=== PATIENT | female | born 1950 | race Caucasian/White ===

== ENCOUNTER 2021-06-27 09:16 | Outpatient (CLI) | payer MEDICARE, SELFPAY ==
[2021-06-27 09:40] VITALS: PULSE 70; O2SAT 98
[2021-06-27 09:46] VITALS: PULSE 84; O2SAT 94
--- NOTE | 2021-06-27 10:23 | HOMEO2EVAL ---
Evaluation was performed at [facility] Home Oxygen Evaluation RC: Home Oxygen (O2) Evaluation Start: 06/27/21 10:18 Freq: Status: Active Protocol: RPE Activity Type Activity Date Activity User E-Sign Co-Sign Detail Recorded Client Recorded Date Recorded By Document 06/27/21 09:40 SJB [id number] 06/27/21 10:23 SJB Document 06/27/21 09:46 SJB [id number] 06/27/21 10:23 SJB 06/27/21 06/27/21 09:40 09:46 Home O2 Evaluation Test Phase Resting Exercise Oxygen Delivery Room Air Room Air Pulse Oximetry (90-100 %) 98 94 Pulse Rate (60-100 beats/min) 70 84 Activity Tolerance Excellent Rating of Perceived Dyspnea (PD) +1 Mild, Noticeable to the Participant but Not to an Observer Rate of Perceived Exertion (PE) 11 Fairly light Ambulation Distance (feet) 650 Ambulation Distance (meters) 198.11 Home Oxygen Evaluation Comments Will begin on Pt walked room air, approx 650 ft pushing pushing wheelchair. wheelchair on room air. Sp02s remained at 94% and above. Tolerated very well. Educated on PLB. Treatment Charges O2 Evaluation - Outpatient
== END 2021-06-27 09:17 | disposition home or self-care (01) ==
LOC: CHSCARD 09:19
PROVIDERS: PCP Internal Medicine; Visit Provider Internal Medicine
DX: R06.00 Dyspnea, unspecified (principal)
CPT/HCPCS: 94618

== ENCOUNTER 2021-06-28 11:45 | Inpatient (IN) | payer MEDICARE, SELFPAY ==
[2021-06-28] VITALS (14 sets, daily range): BP systolic 128–160; BP diastolic 68–114; PULSE 89–132; RESP 15–80; TEMP 36.2–36.4; O2SAT 95–100; BMI 20.1
--- NOTE | ~2021-06-28 | MR_ITS ---
EXAMINATION: MR brain/brain stem wo con DATE: 06/29/2021 12:55 INDICATION: Recurrent TIA TECHNIQUE: Magnetic resonance imaging (MRI) of the brain and brainstem was performed without intraven ous contrast. Sequences included sagittal and axial T1-weighted SE, axial diffusion-weighted FS SE, a xial T2*-weighted GRE, axial T2-weighted FLAIR Propeller, and axial T2-weighted Propeller. Apparent d iffusion coefficient (ADC) maps were created. COMPARISON: CT dated 06/28/2021. FINDINGS: Mild generalized atrophy. There are scattered moderate periventricular and subcortical whit e matter changes, most likely related to small vessel ischemic disease (microangiopathy). No acute in tracranial infarction, hemorrhage, mass or mass effect. Paranasal sinuses are unremarkable. Structure s of the posterior fossa including 7/8th cranial nerve complexes are normal. There is a small chronic right lacunar infarction of the caudate nucleus. Sagittal images demonstrate a normal corpus callosum and craniovertebral junction. IMPRESSION: 1. No acute intracranial abnormality. 2: Chronic age-related findings. Reviewed, dictated and finalized at location A. AGE STOKER
--- NOTE | ~2021-06-28 | XR_ITS ---
EXAMINATION: XR chest 2V DATE: 06/28/2021 12:34 INDICATION: Atrial fibrillation TECHNIQUE: Frontal and lateral views of the chest are obtained COMPARISON: 03/15/2019 FINDINGS: A mild diffuse interstitial pattern is present. There is no pleural effusion or pneumothora x. Cardiomegaly is noted. An electronic device projects over the lower left chest wall. There is mode rate thoracic spondylosis. Surgical clips in the right upper quadrant are likely from prior cholecyst ectomy. IMPRESSION: 1. Cardiomegaly with mild pulmonary edema. Reviewed, dictated and finalized at location A. CATION RECONCILIATION TECHNICIAN
--- NOTE | ~2021-06-28 | US_ITS ---
EXAMINATION: US carotid duplex BI DATE: 06/29/2021 13:10 INDICATION: TIA TECHNIQUE: Grayscale, color Doppler, and pulsed Doppler images of the cervical carotid arteries were obtained. The degree of vessel stenosis is placed in one of the following categories: normal, <50%, 5 0-69%, >=70% but less than near-occlusion, near-occlusion, or total occlusion. Note that percent sten osis relative to normal distal artery lumen diameter is indirectly measured from velocity measurement s as described by Jovon, et al. Radiology 2003; 229:340-346. Notes: Normal: Peak systolic velocity <125 centimeters/sec and no plaque <50%. Peak systolic velocity <125 ( EDV <40; ICA/CCA PSV ratio <2.0; used these factors only a tandem lesions or low cardiac output or co ntralateral disease) 50-69 %: PSV 125-230 (EDV 40-100; ratio 2-4) >= 70% but less than near occlusion: PSV greater than 230 (EDV > 100; ratio> 4.0) Near Occlusion: PSV that is variable; markedly narrowed lumen Occlusion: Absent flow on color/spectral Doppler and no lumen on kunz scale. COMPARISON: None. FINDINGS: RIGHT: The right common carotid artery (CCA) peak systolic velocity (PSV) is 68 cm/s. The right internal car otid artery (ICA) PSV is 69 cm/s. The right ICA end-diastolic velocity (EDV) is 15 cm/s. The right IC A/CCA PSV ratio is 1.0. The external carotid artery (ECA) PSV is 42 cm/s. There is antegrade flow in the right vertebral artery. LEFT: The left CCA PSV is 70 cm/s. The left ICA PSV is 49 cm/s. The left ICA EDV is 17 cm/s. The left ICA/C CA PSV ratio is 0.7. The ECA PSV is 49 cm/s. There is antegrade flow in the left vertebral artery. IMPRESSION: 1. Less than 50% stenosis in the right internal carotid artery by sonographic criteria. 2. Less than 50% stenosis in the left internal carotid artery by sonographic criteria. Reviewed, dictated and finalized at location A. RIAL YARD CLERK IMPRESSION: 1. Less than 50% stenosis in the right internal carotid artery by sonographic ga cruz. 2. Less than 50% stenosis in the left internal carotid artery by sonographic pedro pablo alba.
--- NOTE | ~2021-06-28 | CT_ITS ---
EXAMINATION: CT brain wo con EXAM DATE: 06/28/2021 21:50 INDICATION: A.fib stroke like symptoms TECHNIQUE: Spiral CT of the head was performed without contrast. Axial, coronal and sagittal images were reviewed. The dose-length product (DLP) for this examination was 605.33 mGy-cm. The exposure w as tailored according to patient size, and iterative reconstruction (ASIR) was used as additional dos e reduction technique. There is no prior study for comparison. FINDINGS: There is no acute intraparenchymal hemorrhage. No evidence of intraparenchymal brain mass lesion. No evidence of acute infarction. Please note that initial head CT has limited sensitivity f or small or acute infarctions. There is mild periventricular and subcortical hypodensity, nonspecific but probably related to small vessel ischemic disease. There is mild prominence of the sulci and v entricles related to cerebral atrophy. There is intracranial carotid arteriosclerosis. There are n o extra-axial collections. There is no mass effect or midline shift. The orbits are unremarkable. Soft tissue is unremarkable. The visualized sinuses and mastoid air cells are well aerated. IMPRESSION: 1. No acute intracranial findings. 2. Chronic age related findings. Reviewed, dictated and finalized at location G. FIELD EQUIPMENT MECHANIC
--- NOTE | 2021-06-28 12:17 | ED.ARRPALP ---
HPI - Arrhythmia/Palpitations General Chief Complaint: Arrhythmia/Palpitations Stated Complaint: Afib Time Seen by Provider: 06/28/21 12:04 Source: patient, family and RN notes reviewed Limitations: no limitations History of Present Illness HPI narrative: 70-year-old female presenting to the emergency department for evaluation of acute A. fib with RVR. Patient states she was diagnosed with A. fib approximately 1 week ago. Patient states that her atenolol was switched to metoprolol by Dr. Neely. Patient states she was supposed to get an echo today when she was found to be in A. fib with RVR with a heart rate in the 130s. Patient states that she had follow-up with her physician yesterday and her heart rate was in the 80s. Patient states that she did have some slight dizziness but denies any chest pain or shortness of breath. Patient reports she did have some SOB with exertion when walking into the hospital. Patient has follow up with Dr Neely for bad valves . Patient denies prior CT or CHF. Patient does have CKD and has follow up scheduled with pulmonology. Related Data Home Medications Medication Instructions Recorded Confirmed atorvastatin 20 mg PO DAILY 06/28/21 06/28/21 duloxetine 30 mg PO DAILY 06/28/21 06/28/21 furosemide 20 mg PO DAILY 06/28/21 06/28/21 lorazepam 0.5 mg PO 06/28/21 metoprolol tartrate 25 mg PO Q12H 06/28/21 06/28/21 rivaroxaban [Xarelto] mg 06/28/21 Allergies Allergy/AdvReac Type Severity Reaction Status Date / Time No Known Allergies Allergy Verified 06/28/21 17:49 Review of Systems Review of Systems: CONSTITUTIONAL: Denies fever, chills, or sweats. EYES: Denies visual changes, redness, or discharge. ENT: Denies rhinorrhea, congestion, sore throat, or otalgia. CARDIOVASCULAR: rapid heart rate RESPIRATORY: exertional SOB. GASTROINTESTINAL: Denies abdominal pain, nausea, vomiting, or diarrhea. GENITOURINARY: Denies dysuria or hematuria. SKIN: Denies rash or itching. MUSCULOSKELETAL: Denies back pain, joint pain, or myalgia. NEUROLOGIC: Denies headache, numbness, or weakness. [facility], LAT[facility] Past Medical History Medical History (Updated 06/28/21 @ 17:49 by Ruy Domingo MD) Chronic kidney disease, stage 3 Paroxysmal atrial fibrillation Social History Social History (Updated 06/28/21 @ 14:04 by Milka Cat PA-C) Social History: The patient lives in [place] with her . Surrogate decision-maker: Ricardo Araiza, spouse. CODE STATUS: Full code Exam Narrative: APPEARANCE: Well appearing, no pain, no distress, well-nourished. HEAD: normocephalic, atraumatic. EYES: PERRLA/EOMI, conjunctivae clear. NECK: Supple. No adenopathy, no masses. RESPIRATORY: Airway patent, respirations nonlabored. Rhonchi in lower lobes bilaterally CARDIOVASCULAR: A. fib with RVR ABDOMINAL: Soft, nontender, nondistended, normal bowel sounds MUSCULOSKELETAL: Moves all extremities. Strength/ROM intact. +1 pitting edema NEURO: Alert. Cranial nerves II through XII intact. Course Course Emergency Course: Patient was started on cardizem bolus and drip. Patient's heart rate is improved. Patient has a elevated BNP of 30K and pulmonary edema on chest XR. Patient was started on lasix. Cardiology was consulted. Patient will be admitted to the hospitalist. Vital Signs Vital signs: Vital Signs Temperature 97.5 F L 06/28/21 11:57 Pulse Rate 132 H 06/28/21 11:57 Respiratory Rate 18 06/28/21 11:57 Blood Pressure 148/81 H 06/28/21 11:57 Pulse Oximetry 100 06/28/21 11:57 Temperature 97.5 F L 06/28/21 11:57 Pulse Rate 93 06/28/21 16:45 Respiratory Rate 15 06/28/21 16:45 Blood Pressure 151/85 H 06/28/21 16:16 Pulse Oximetry 95 06/28/21 16:45 MDM - Arrhythmia/Palpitations Medical Records Attestation: I reviewed the patient's medical records. Lab Data Attestation: I reviewed the patient's lab results. Result diagrams: 06/28/21 12:21 06/28/21 12:
--- NOTE | 2021-06-28 12:19 | ECG_ITS ---
Measurements Intervals [place] Rate: 142 P: [place]: 0 QRS: -29 QRSD: 71 T: 62 QT: 297 QTc: 458 Interpretive Statements ATRIAL FIBRILLATION WITH RAPID VENTRICULAR RESPONSE DELAYED PRECORDIAL R/S TRANSITION BORDERLINE ST-T WAVE ABNORMALITY- HIGH LATERAL LEADS ABNORMAL ECG Electronically Signed On 06-28-2021 12:28:18 CIGARETTE MAKING MACHINE OPERATOR by Aguilar Sandy D.O.
[2021-06-28 12:30] LABS: Basophils Percent Auto 0.2 % (0.2-1.2); Hematocrit 37.7 % (37.0-47.0); Hemoglobin 11.7 g/dL (12.0-15.0); Immature Granulocyte Absolute 0.04 K/mm3 (0.00-0.031); Immature Granulocyte Percent A 0.5 % (0-0.5); Lymphocytes Absolute Auto 1.27 K/mm3 (0.9-3.2); Lymphocytes Percent Auto 14.3 % (18.3-44.2); Mean Corpuscular Hemoglobin 32.8 pg (26-34); Mean Corpuscular Volume 105.6 fl (80-100); Mean Platelet Volume 10.4 fl (7.4-10.4); Monocytes Absolute Auto 0.3 K/mm3 (0.1-0.6); Monocytes Percent Auto 2.9 % (2.6-8.5); Neutrophils Absolute Auto 7.3 K/mm3 (1.3-6.7); Neutrophils Percent Auto 82.1 % (45.5-73.1); Nucleated Red Blood Cells Perc 0.2 % (0.0-0.2); Platelet Count Result 259 k/mm3 (150-375); Red Blood Count 3.57 M/mm3 (4.2-5.4); Red Cell Distribution Width 16.5 % (11.5-14.5); White Blood Count 8.9 K/mm3 (4.5-10.0)
[2021-06-28] MEDS: dilTIAZem HCl INJ 25 MG/5 ML VIAL 10 MG IV PUSH (12:33)
[2021-06-28] MEDS: dilTIAZem 100 MG/100 ML 100 MG/100 ML BAG IV CONT (12:36)
[2021-06-28 12:46] LABS: Alanine Aminotransferase 30 U/L (4-35); Alkaline Phosphatase 103 U/L (38-126); Anion Gap 8 mmol/L (8-16); Aspartate Amino Transferase 34 U/L (14-36); Bilirubin,Total 0.7 mg/dL (0.2-1.3); Blood Urea Nitrogen 24 mg/dL (7-17); Calcium 8.9 mg/dL (8.4-10.2); Carbon Dioxide 30 mmol/L (22-30); Chloride 102 mmol/L (98-107); Estimated CRCL calculation 27 ml/min; Estimated Glomerular Filt Rate 34; Glucose 128 mg/dL (65-110); INR 1.8; Magnesium 1.7 mg/dL (1.6-2.3); Potassium 4.1 mmol/L (3.4-5.0); Prothrombin Time 20.2 Seconds (11.1-14.7); Sodium 140 mmol/L (137-145)
[2021-06-28 12:47] LABS: Partial Thromboplastin Time 32.4 SECONDS (22.3-36.8)
--- NOTE | 2021-06-28 12:55 | ECG_ITS ---
Measurements Intervals [place] Rate: 102 P: SD: 0 QRS: -34 QRSD: 77 T: 72 QT: 350 QTc: 457 Interpretive Statements ATRIAL FIBRILLATION WITH RAPID VENTRICULAR RESPONSE VENTRICULAR PREMATURE COMPLEX LEFT AXIS DEVIATION BORDERLINE R WAVE PROGRESSION, ANTERIOR LEADS BORDERLINE ST-T WAVE ABNORMALITY- HIGH LATERAL LEADS ABNORMAL ECG Electronically Signed On 06-28-2021 14:08:38 MOTORCYCLE FABRICATOR by Aguilar Sandy D.O.
[2021-06-28 12:56] LABS: NT Pro B Type Natriuretic Pept 30400 pg/mL (5-100)
--- NOTE | 2021-06-28 13:34 | PC.NURSE ---
Bedside commode placed at patient's bedside for patient to use due to frequent urination due to lasix administration.
--- NOTE | 2021-06-28 14:20 | PM.IMHP ---
H&P: HPI History of Present Illness Date/Time: 06/28/21 14:20 Chief Complaint: Atrial fibrillation with RVR. Narrative: This is a pleasant 70-year-old female with lupus, interstitial lung disease, chronic kidney disease, hypertension, hyperlipidemia, and valvular heart disease who presented to the emergency department from her manager utilization review's office after she was found to be in atrial fibrillation with rapid ventricular response. About 2 or 3 weeks ago she was wakened from sleep with sensations of her heart racing and shortness of breath. It was self-limiting however she has had a few similar episodes since that time though they typically occur with exertion. She has also had 3 separate neurologic events lasting 30 minutes or less including left hand numbness with facial droop, difficulties concentrating with slurred speech, and right arm weakness/numbness with difficulties operating her cellphone. Eventually she made an appointment with her doctor at which time she was found to be in atrial fibrillation at which time she was started on metoprolol and rivaroxaban. A brain MRI was also ordered though she was not able to get that scheduled until sometime next month. An echocardiogram was scheduled today and on arrival to the manager utilization review's office she was complaining of shortness of breath and was found to be in atrial fibrillation with a rate into the 150s for which she was directed to the emergency department. She is currently on a diltiazem drip with improvement in her rate and symptoms. She has no history of atrial fibrillation prior to the last several weeks though reports having occasional issues with PVCs. She has known valvular heart disease (mitral, aortic, and tricuspid regurgitation) for which she is followed by Dr. Neely. She denies exertional chest pain, syncope, near syncope, nausea, vomiting, and sweats. No known history of thyroid disease or sleep apnea. No significant caffeine or alcohol intake. Review of Systems Review of Systems: Twelve systems were reviewed. No fever, chills, or sweats. No recent cold or flu symptoms. She denies sick contacts. Late last fall she developed a near full body rash which was pruritic and hyperpigmented in some places. Her primary care provider thought it may be related to her lupus and she has since been referred to a cook manager. Her rash has improved significantly with prednisone. Except as documented, all other systems were reviewed and are negative. [facility] Past Medical History Medical History (Updated 06/28/21 @ 22:17 by Milka Cat PA-C) Anemia With history of blood transfusion. Anxiety Chronic kidney disease, stage 3 Interstitial lung disease Osteoarthritis Paroxysmal atrial fibrillation Systemic lupus erythematosus Valvular heart disease Aortic, mitral, and tricuspid regurgitation. Surgical History Surgical History (Updated 06/28/21 @ 22:11 by Milka Cat PA-C) History of cardiac catheterization (07/2010) History of cholecystectomy Family History Family History Mother Heart attack Sibling Pancreatic cancer Father Colon cancer Social History Social History (Updated 06/28/21 @ 22:12 by Milka Cat PA-C) Social History: The patient lives in [place] with her . Nonsmoker. No alcohol or illicit substance use. Surrogate decision-maker: Ricardo Araiza, spouse. CODE STATUS: Full code Meds Home Medications and Allergies Home Medications Medication Instructions Recorded Confirmed Type albuterol sulfate 1 puff INHALATION PRN PRN 06/28/21 06/28/21 History atorvastatin 20 mg PO DAILY 06/28/21 06/28/21 History cephalexin 500 mg PO BID 06/28/21 06/28/21 History duloxetine 30 mg PO DAILY 06/28/21 06/28/21 History furosemide 20 mg PO DAILY 06/28/21 06/28/21 History metoprolol tartrate 37.5 mg PO Q12H 06/28/21 06/28/21 History prednisone 20 mg PO BID 06/28/21 06/28/21 History rivaroxaban [X
[2021-06-28] MEDS: FUROSEMIDE INJ 40 MG/4 ML VIAL IV PUSH (14:55)
[2021-06-28 16:19] LABS: SARS-CoV-2 RNA PCR Negative
[2021-06-28 16:24] LABS: Troponin I 0.266 ng/mL (0.000-0.034)
--- NOTE | 2021-06-28 16:48 | PC.NURSE ---
Patient care report given to ALEXANDRA Perez. All questions answered at this time.
--- NOTE | 2021-06-28 17:30 | PC.NURSE ---
This patient, Susan Araiza, was admitted to [facility] as IMU patient. Patient/family oriented to hospital policies and general routines including ID bracelet, bed and alarms, visiting hours, pain management, procedures, bathroom and other care routines, personal items, smoking policy, room service/diet, and visiting hours. Information on how to activate the Rapid Response Team has been discussed. Patient/Family are encouraged to report perceived risks to care and to ask questions if they do not understand what they are told or what they should do.
--- NOTE | 2021-06-28 17:59 | PM.CNCAR ---
Assessment and Plan Assessment and plan (1) Atrial fibrillation with rapid ventricular response: Code(s): I48.91 - Unspecified atrial fibrillation Status: Acute Assessment and Plan: Recent diagnosis, highly symptomatic. Heart rate remains suboptimally controlled. Increase diltiazem infusion to 10 milligram/hour for now. May continue low-dose metoprolol as well. I would not recommend initiating antiarrhythmic therapy at this time given great concern for TIA symptoms over the past week and possibility of intracardiac thrombus. Continue systemic anticoagulation. Although would prefer to change to heparin infusion this would need to be delayed after holding systemic anticoagulation which I feel would pose a greater risk at this time. We will focus on heart rate control at this time. Patient is otherwise hemodynamically stable and denies shortness of breath or focal weakness. -given her elevated troponin, shortness of breath and evidence of mildly decompensated heart failure and concern with regards to LV dysfunction and tachycardia induced cardiomyopathy. Will obtain 2D echocardiogram in a.m. with better heart rate control. If LV dysfunction would like to avoid diltiazem if possible as well as potential interaction with Xarelto. I explained the pathophysiology of atrial fibrillation, embolic stroke risk management strategy including medication, cardioversion and the concept of rhythm versus rate control. If electrical cardioversion were deemed necessary ASHLEY guidance strongly advised. (2) Type 2 myocardial infarction: Code(s): I21.A1 - Myocardial infarction type 2 Status: Acute Assessment and Plan: Mild troponin elevation without anginal chest pain. Most likely consistent with that type 2 infarctions secondary to AFib with RVR, chronic kidney disease, mild acute CHF, and the possibility of LV dysfunction. 2D echocardiogram in a.m.. Continue systemic anticoagulation, statin therapy. Recommendations to follow. (3) TIA (transient ischemic attack): Code(s): G45.9 - Transient cerebral ischemic attack, unspecified Status: Acute Assessment and Plan: Symptoms concerning for recurrent TIA. Currently asymptomatic in this regard. MRI planned for tomorrow she states but there is no order in the system, nor was a CT head noncontrast obtained in the ER, but will order. (4) Hypertension: Qualifiers: Hypertension type: primary hypertension Qualified Code(s): I10 - Essential (primary) hypertension Code(s): I10 - Essential (primary) hypertension Status: Acute Assessment and Plan: Stable, reasonable at this time given the circumstances. (5) Mixed hyperlipidemia: Code(s): E78.2 - Mixed hyperlipidemia Status: Acute Assessment and Plan: Continue atorvastatin. Check lipid panel. (6) Chronic anticoagulation: Code(s): Z79.01 - MCFP (current) use of anticoagulants Status: Acute Assessment and Plan: Continue Xarelto 15 mg at bedtime. Monitor for bleeding. History of Present Illness History of Present Illness Consult date/time: Date of service: 06/28/21 17:59 Card[facility] regarding atrial fibrillation with rapid ventricular response. Requesting physician: Norma Schafer MD Consult reason: atrial fibrillation Reason For Visit: Afib with RVR Narrative: Patient is a very pleasant 70-year-old female with a past medical history significant for interstitial lung disease, hypertension, CKD stage 3-4 mixed hyperlipidemia, history of PVCs, mitral regurgitation, aortic and tricuspid regurgitation and recent diagnosis of paroxysmal atrial fibrillation with rapid ventricular response who states approximately 2-3 weeks ago she awoke from sleep feeling very short of breath with sensation of her heart racing. She did not at the time know what was goi
[2021-06-28] MEDS: dilTIAZem 100 MG/100 ML 100 MG/100 ML BAG 10 MG IV CONT (19:54)
[2021-06-28] MEDS: METOPROLOL TARTRATE 25 MG TABLET PO (19:56)
[2021-06-28] MEDS: CEPHALEXIN 500 MG CAPSULE PO (22:42)
[2021-06-29] VITALS (16 sets, daily range): BP systolic 95–143; BP diastolic 52–87; PULSE 76–115; RESP 14–22; TEMP 36–36.6; O2SAT 93–97
[2021-06-29 05:13] LABS: Anion Gap 7 mmol/L (8-16); Blood Urea Nitrogen 27 mg/dL (7-17); Calcium 8.9 mg/dL (8.4-10.2); Carbon Dioxide 30 mmol/L (22-30); Chloride 102 mmol/L (98-107); Cholesterol 138 mg/dL (0-200); Estimated CRCL calculation 27 ml/min; Estimated Glomerular Filt Rate 34; Glucose 103 mg/dL (65-110); HDL Direct 59 mg/dL; Magnesium 1.8 mg/dL (1.6-2.3); Potassium 3.7 mmol/L (3.4-5.0); Sodium 139 mmol/L (137-145); Triglycerides 143 mg/dL (<150)
[2021-06-29 05:24] LABS: LDL Cholesterol Direct 48 mg/dL
[2021-06-29] MEDS: DULoxetine HCL 30 MG CAPSULE.DR PO (08:20)
[2021-06-29] MEDS: METOPROLOL TARTRATE 25 MG TABLET PO (08:20)
[2021-06-29] MEDS: CEPHALEXIN 500 MG CAPSULE PO ×2 (08:20→21:09)
[2021-06-29] MEDS: predniSONE 20 MG TABLET PO (08:20)
[2021-06-29] MEDS: ATORVASTATIN 20 MG TABLET PO (08:20)
[2021-06-29] MEDS: FUROSEMIDE INJ 40 MG/4 ML VIAL IV PUSH (08:21)
[2021-06-29] MEDS: dilTIAZem 100 MG/100 ML 100 MG/100 ML BAG 10 MG IV CONT (09:26)
--- NOTE | 2021-06-29 09:52 | PM.IMPN ---
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 About 2 or 3 weeks ago she was wakened from sleep with sensations of her heart racing and shortness of breath. It was self-limiting, however she has had a few similar episodes since that time though they typically occur with exertion. She has also had 3 separate neurologic events lasting 30 minutes or less including left hand numbness with facial droop, difficulties concentrating with slurred speech, and right arm weakness/numbness with difficulties operating her cellphone. Eventually she made an appointment with her doctor 06/22/21 at which time she was found to be in atrial fibrillation at which time she was started on metoprolol and rivaroxaban. A brain MRI was also ordered though she was not able to get that scheduled until sometime next month. An echocardiogram was scheduled today and on arrival to the java sybase developer's office she was complaining of shortness of breath and was found to be in atrial fibrillation with a rate into the 150s for which she was directed to the emergency department. Initial vitals showed blood pressure 148/81 tachycardic heart 132, afebrile, normal oxygen saturation 100% on room air. Initial labs showed normal white blood cell count, slight macrocytic anemia with a hemoglobin of 11, hematocrit 37%. INR 1.8, PTT 20. Creatinine seems to be at her baseline 1.5, BUN 24. Normal LFTs. Elevated troponin 0.66. Elevated BNP at 30,400. Normal cholesterol panel. Normal TSH. Negative COVID PCR. Chest x-ray showed cardiomegaly with mild pulmonary edema. CT head showed no acute intracranial findings. Chronic age-related findings. EKG on arrival showed the patient was in atrial fibrillation with rapid ventricular response with a heart rate of 142 beats per minute. She was started on a diltiazem drip at 10 mg an hour. She was started on low-dose metoprolol as well. She was admitted into the hospital with a cardiology consultation for further evaluation and workup for her atrial fibrillation with rapid ventricular response edema. Echocardiogram is pending On the diltiazem drip the patient's heart rate is well controlled but still appears to be in atrial fibrillation. Cardiology evaluated the patient and is going to discontinue the diltiazem drip increase metoprolol to 50 mg q.12 Recommends continuing IV Lasix at this time and will consider switching to p.o. Lasix tomorrow depending on her fluid status Continue monitoring. Appreciate Cardiology input. (2) Congestive heart failure: Qualifiers: Heart failure chronicity: unspecified Heart failure type: unspecified Qualified Code(s): I50.9 - Heart failure, unspecified Code(s): I50.9 - Heart failure, unspecified Status: Acute Assessment and Plan: She will be cautiously diuresed with close monitoring of volume status and renal function. Echocardiogram is pending to better diagnose systolic versus diastolic CHF Continue monitoring. (3) Type 2 myocardial infarction: Code(s): I21.A1 - Myocardial infarction type 2 Status: Acute Assessment and Plan: Mild troponin elevation without anginal chest pain. Most likely consistent with that type 2 infarctions secondary to AFib with RVR, chronic kidney disease, mild acute CHF, and the possibility of LV dysfunction. Pending echocardiogram Continue systemic anticoagulation, statin therapy. Appreciate
--- NOTE | 2021-06-29 10:41 | PM.PNCARD ---
Progress Note: A&P Assessment and Plan (1) Atrial fibrillation with rapid ventricular response: Code(s): I48.91 - Unspecified atrial fibrillation Status: Acute Assessment and Plan: Recent diagnosis, highly symptomatic. Heart rate remains suboptimally controlled. Will DC her diltiazem drip at this point. Will increase her metoprolol to 50 mg p.o. b.i.d.. Continue systemic anticoagulation. If electrical cardioversion were deemed necessary ASHLEY guidance strongly advised. Echo pending. Still on IV diuretics but likely will change that to oral diuretics tomorrow. KCL 40 mEq p.o. times 1 (2) Type 2 myocardial infarction: Code(s): I21.A1 - Myocardial infarction type 2 Status: Acute Assessment and Plan: Mild troponin elevation without anginal chest pain. This is not related to acute plaque rupture. Echo pending (3) TIA (transient ischemic attack): Code(s): G45.9 - Transient cerebral ischemic attack, unspecified Status: Acute Assessment and Plan: Symptoms concerning for recurrent TIA. Currently asymptomatic in this regard. MRI pending (4) Hypertension: Qualifiers: Hypertension type: primary hypertension Qualified Code(s): I10 - Essential (primary) hypertension Code(s): I10 - Essential (primary) hypertension Status: Acute Assessment and Plan: Stable, reasonable at this time given the circumstances. (5) Mixed hyperlipidemia: Code(s): E78.2 - Mixed hyperlipidemia Status: Acute Assessment and Plan: Continue atorvastatin. Check lipid panel. 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 Monitor for bleeding. Subjective Date/time seen: 06/29/21 10:41 Interval history: 70-year-old admitted for atrial fibrillation with rapid ventricular response, shortness breath, possible TIA Date of service 06/29/2021: She feels well today. Less short of breath. No chest pain. Review of Systems Review of Systems: All systems reviewed & are unremarkable except as noted in HPI and below Constitutional: Constitutional: Reports as per HPI, Reports no additional constitutional complaints and Reports fatigue Eyes: Eyes: Reports as per HPI and Reports no additional eye complaints ENT: Reports system reviewed and no additional complaints, except as documented and Reports as per HPI Cardiovascular: Cardiovascular: Reports as per HPI, Reports no additional cardiovascular complaints, Denies chest pain, Reports palpitations, Reports dyspnea and Reports dyspnea on exertion Respiratory: Respiratory: Reports as per HPI, Reports no additional respiratory complaints, Reports dyspnea and Reports dyspnea on exertion Gastrointestinal: Gastrointestinal: Reports as per HPI, Reports no additional gastrointestinal complaints and Denies hematochezia Genitourinary: Genitourinary: Reports as per HPI Musculoskeletal: Musculoskeletal: Reports no additional musculoskeletal complaints and Reports as per HPI Integumentary/Breasts: Skin/Breast: Reports system reviewed and no additional complaints, except as docu and Reports as per HPI Neurologic: Reports system reviewed and no additional complaints, except as documented, Reports as per HPI, Reports Neuro-related abnormal movements, Reports Abnormal speech present, Reports confusion and Reports paresthesias Psychiatric: Psychiatric: Reports no additional psychiatric complaints, Reports as per HPI and Reports confusion Endocrine: Endocrine: Reports no additional endocrine complaints, Reports as per HPI, Reports fatigue and Reports palpitations Hematologic/Lymphatic: Hematologic/Lymphatic: Reports no additional hematologic/lymphatic complaints, Reports as per HPI and Denies easy bleeding Allergic/Immunologic: Allergic/Immunologic: Reports no additional allergic/immunologic complaints
[2021-06-29] MEDS: POTASSIUM CHLORIDE 20 MEQ TABLET 40 MEQ PO (11:04)
[2021-06-29] MEDS: LORazepam (*CRX) 0.5 MG TABLET PO (11:49)
[2021-06-29] MEDS: RIVAROXABAN 15 MG TABLET PO (17:42)
[2021-06-29] MEDS: FERROUS SULFATE 324 MG TABLET PO (17:42)
--- NOTE | 2021-06-29 18:21 | ECHO_ITS ---
Patient Info Name: Susan Araiza Age: 70 years : 1950 Gender: Female Ht: 65 in Wt: 122 lbs BSA: 1.59 m2 HR: 88 bpm BP: 119 / 52 mmHg Heart Rhythm: Atrial Fibrillation Technical Quality: Good Exam Date: 06/29/2021 8:41 AM Exam Location: [facility] Pul[facility] Patient Status: Outpatient Admit Date: 06/28/2021 Staff Ordering Physician: Dane Peck MD [employer] Set Up Worker: Rhonda Robbins RDCS Attending Provider: Ana Sterling PA-C Referring Physician: Cisco CAMACHO; Exam Type: CA echo doppler color flow Study Info Indications I48.1 - Persistent atrial fibrillation Complete two-dimensional, color flow and Doppler transthoracic echocardiogram is performed. Summary 1. Complete two-dimensional, color flow and Doppler transthoracic echocardiogram is performed. 2. Left ventricular chamber dimension is normal. 3. Left ventricular systolic function is normal, estimated at 60-65%. 4. There is mildly increased left ventricular wall thickness. 5. The left ventricular diastolic function is indeterminate. 6. Left atrial chamber dimension is severely enlarged. 7. Right atrial chamber dimension is severely enlarged. 8. There is mild aortic valve stenosis with a peak velocity of 177 cm/s, mean gradient of 7 mmHg, and aortic valve area of 1.5 cm2. 9. There is moderate aortic valve regurgitation. 10. There is mild aortic valve calcification. 11. There is moderate mitral valve regurgitation. 12. There is moderate tricuspid valve regurgitation. 13. Moderate pulmonary hypertension, estimated pulmonary arterial systolic pressure is 46 mmHg. 14. There is mild pulmonic regurgitation. 15. There is small pericardial effusion. Left Ventricle Left ventricular chamber dimension is normal. Left ventricular systolic function is normal, estimated at 60-65%. There is mildly increased left ventricular wall thickness. The left ventricular diastolic function is indeterminate. Right Ventricle Right ventricular chamber dimension is normal. Right ventricular systolic function is normal. Left Atria Left atrial chamber dimension is severely enlarged. Right Atria Right atrial chamber dimension is severely enlarged. Atrial Septum Intact interatrial septum visualized by color flow imaging. Aortic Valve The aortic valve is trileaflet. There is mild aortic valve stenosis with a peak velocity of 177 cm/s, mean gradient of 7 mmHg, and aortic valve area of 1.5 cm2. There is moderate aortic valve regurgitation. There is mild aortic valve calcification. Pulmonic Valve The pulmonic valve is normal. There is no pulmonic valve stenosis. There is mild pulmonic regurgitation. Mitral Valve The mitral valve has normal leaflets. There is no mitral valve stenosis. There is moderate mitral valve regurgitation. Tricuspid Valve The tricuspid valve leaflets are normal. There is no significant tricuspid valve stenosis. There is moderate tricuspid valve regurgitation. Moderate pulmonary hypertension, estimated pulmonary arterial systolic pressure is 46 mmHg. Pericardium/Pleural The pericardium appears normal. There is small pericardial effusion. Inferior Vena Cava Dilated inferior vena cava with >50% collapse upon inspiration consistent with elevated right atrial pressure, 15 mmHg. Aorta The aortic root size at the sinus of Valsalva is normal. Left Ventricular Outflow Tract Name
[2021-06-29] MEDS: METOPROLOL TARTRATE 50 MG TAB PO (21:09)
[2021-06-30] VITALS (15 sets, daily range): BP systolic 117–144; BP diastolic 55–97; PULSE 104–139; RESP 19–96; TEMP 36.1–36.8; O2SAT 96–99
[2021-06-30 06:31] LABS: Anion Gap 6 mmol/L (8-16); Blood Urea Nitrogen 39 mg/dL (7-17); Calcium 8.9 mg/dL (8.4-10.2); Carbon Dioxide 28 mmol/L (22-30); Chloride 103 mmol/L (98-107); Estimated CRCL calculation 24 ml/min; Estimated Glomerular Filt Rate 30; Glucose 101 mg/dL (65-110); Potassium 4.2 mmol/L (3.4-5.0); Sodium 137 mmol/L (137-145)
[2021-06-30] MEDS: METOPROLOL TARTRATE 50 MG TAB PO ×2 (08:15→20:26)
[2021-06-30] MEDS: ATORVASTATIN 20 MG TABLET PO (08:15)
[2021-06-30] MEDS: DULoxetine HCL 30 MG CAPSULE.DR PO (08:15)
[2021-06-30] MEDS: FUROSEMIDE INJ 40 MG/4 ML VIAL IV PUSH (08:16)
[2021-06-30] MEDS: predniSONE 10 MG TABLET PO (08:16)
[2021-06-30] MEDS: FERROUS SULFATE 324 MG TABLET PO ×2 (08:16→16:27)
[2021-06-30] MEDS: CEPHALEXIN 500 MG CAPSULE PO ×2 (08:16→20:26)
--- NOTE | 2021-06-30 09:54 | PM.IMPN ---
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 About 2 or 3 weeks ago she was wakened from sleep with sensations of her heart racing and shortness of breath. It was self-limiting, however she has had a few similar episodes since that time though they typically occur with exertion. She has also had 3 separate neurologic events lasting 30 minutes or less including left hand numbness with facial droop, difficulties concentrating with slurred speech, and right arm weakness/numbness with difficulties operating her cellphone. Eventually she made an appointment with her doctor 06/22/21 at which time she was found to be in atrial fibrillation at which time she was started on metoprolol and rivaroxaban. A brain MRI was also ordered though she was not able to get that scheduled until sometime next month. An echocardiogram was scheduled today and on arrival to the warehouse order picker's office she was complaining of shortness of breath and was found to be in atrial fibrillation with a rate into the 150s for which she was directed to the emergency department. Initial vitals showed blood pressure 148/81 tachycardic heart 132, afebrile, normal oxygen saturation 100% on room air. Initial labs showed normal white blood cell count, slight macrocytic anemia with a hemoglobin of 11, hematocrit 37%. INR 1.8, PTT 20. Creatinine seems to be at her baseline 1.5, BUN 24. Normal LFTs. Elevated troponin 0.66. Elevated BNP at 30,400. Normal cholesterol panel. Normal TSH. Negative COVID PCR. Chest x-ray showed cardiomegaly with mild pulmonary edema. CT head showed no acute intracranial findings. Chronic age-related findings. EKG on arrival showed the patient was in atrial fibrillation with rapid ventricular response with a heart rate of 142 beats per minute. She was started on a diltiazem drip at 10 mg an hour. She was started on low-dose metoprolol as well. She was admitted into the hospital with a cardiology consultation for further evaluation and workup for her atrial fibrillation with rapid ventricular response edema. Echocardiogram showing normal EF 60-65%, mild LVH, diastolic function is indeterminate. Left and right atrial chamber is severely enlarged. Mild aortic valve stenosis. Moderate pulmonary hypertension. Cardiology discontinued her diltiazem drip yesterday. Today on telemetry her AFib is between 122-145 beats per minute while on at bedside in she sitting in bed. Cardiology evaluated the patient and was going to continue washing her with metoprolol to 50 mg q.12 h and make adjustments if her heart rate is not well controlled. I mention to Cardiology about her heart rate being elevated. Will see what changes they recommend. Creatinine bumped up slightly, she still has some crackles to her lung allen and good urine output. Will stop IV Lasix and start back on her home dose of oral Lasix 20 mg daily. Continue monitoring. Appreciate Cardiology input. (2) Congestive heart failure: Qualifiers: Heart failure chronicity: unspecified Heart failure type: unspecified Qualified Code(s): I50.9 - Heart failure, unspecified Code(s): I50.9 - Heart failure, unspecified Status: Acute Assessment and Plan: She will be cautiously diuresed with close monitoring of volume status and renal function. Echocardiogram normal systolic function, diastolic function was indeterminate. Congestive heart failure is most likely due to atrial fibrillation with rapid
--- NOTE | 2021-06-30 10:11 | PM.PNCARD ---
Progress Note: A&P Assessment and Plan (1) Atrial fibrillation with rapid ventricular response: Code(s): I48.91 - Unspecified atrial fibrillation Status: Acute Assessment and Plan: Recent diagnosis, highly symptomatic. Heart rate remains suboptimally controlled. Will DC her diltiazem drip at this point. Will increase her metoprolol to 50 mg p.o. b.i.d.. Continue systemic anticoagulation. If electrical cardioversion were deemed necessary ASHLEY guidance strongly advised. Will DC IV diuretics. Resume furosemide 20 mg p.o. daily. Will monitor heart rate today was higher dose metoprolol and off of IV diltiazem. (2) Type 2 myocardial infarction: Code(s): I21.A1 - Myocardial infarction type 2 Status: Acute Assessment and Plan: Mild troponin elevation without anginal chest pain. This is not related to acute plaque rupture. (3) TIA (transient ischemic attack): Code(s): G45.9 - Transient cerebral ischemic attack, unspecified Status: Acute Assessment and Plan: Symptoms concerning for recurrent TIA. Currently asymptomatic in this regard. MRI pending (4) Hypertension: Qualifiers: Hypertension type: primary hypertension Qualified Code(s): I10 - Essential (primary) hypertension Code(s): I10 - Essential (primary) hypertension Status: Acute Assessment and Plan: Stable, reasonable at this time given the circumstances. (5) Mixed hyperlipidemia: Code(s): E78.2 - Mixed hyperlipidemia Status: Acute Assessment and Plan: Continue atorvastatin. Check lipid panel. (6) Chronic anticoagulation: Code(s): Z79.01 - manager intermediate (current) use of anticoagulants Status: Acute Assessment and Plan: Continue Xarelto 15 mg at bedtime. Monitor for bleeding. Subjective Date/time seen: 06/30/21 10:11 Interval history: 70-year-old admitted for atrial fibrillation with rapid ventricular response, shortness breath, possible TIA Date of service 06/29/2021: She feels well today. Less short of breath. No chest pain. Date of service 06/30/2021: No chest pain, shortness breath, neurological complaints. No swelling or palpitation Review of Systems Review of Systems: All systems reviewed & are unremarkable except as noted in HPI and below Constitutional: Constitutional: Reports as per HPI, Reports no additional constitutional complaints and Reports fatigue Eyes: Eyes: Reports as per HPI and Reports no additional eye complaints ENT: Reports system reviewed and no additional complaints, except as documented and Reports as per HPI Cardiovascular: Cardiovascular: Reports as per HPI, Reports no additional cardiovascular complaints, Denies chest pain, Reports palpitations, Reports dyspnea and Reports dyspnea on exertion Respiratory: Respiratory: Reports as per HPI, Reports no additional respiratory complaints, Reports dyspnea and Reports dyspnea on exertion Gastrointestinal: Gastrointestinal: Reports as per HPI, Reports no additional gastrointestinal complaints and Denies hematochezia Genitourinary: Genitourinary: Reports as per HPI Musculoskeletal: Musculoskeletal: Reports no additional musculoskeletal complaints and Reports as per HPI Integumentary/Breasts: Skin/Breast: Reports system reviewed and no additional complaints, except as docu and Reports as per HPI Neurologic: Reports system reviewed and no additional complaints, except as documented, Reports as per HPI, Reports Neuro-related abnormal movements, Reports Abnormal speech present, Reports confusion and Reports paresthesias Psychiatric: Psychiatric: Reports no additional psychiatric complaints, Reports as per HPI and Reports confusion Endocrine: Endocrine: Reports no additional endocrine complaints, Reports as per HPI, Reports fatigue and Reports palpitations Hematologic/Lymphatic: Hematologic/Lymphatic: Reports no additional hematologic/lymphatic complaints, Reports as per
[2021-06-30] MEDS: METOPROLOL TARTRATE 25 MG TABLET PO (11:08)
[2021-06-30] MEDS: RIVAROXABAN 15 MG TABLET PO (16:27)
[2021-07-01] VITALS (14 sets, daily range): BP systolic 110–131; BP diastolic 62–92; PULSE 103–132; RESP 18–22; TEMP 35.6–36.7; O2SAT 97–100
[2021-07-01 05:41] LABS: Anion Gap 4 mmol/L (8-16); Blood Urea Nitrogen 48 mg/dL (7-17); Calcium 8.8 mg/dL (8.4-10.2); Carbon Dioxide 33 mmol/L (22-30); Chloride 100 mmol/L (98-107); Estimated CRCL calculation 20 ml/min; Estimated Glomerular Filt Rate 23; Glucose 100 mg/dL (65-110); Potassium 3.9 mmol/L (3.4-5.0); Sodium 137 mmol/L (137-145)
[2021-07-01] MEDS: predniSONE 10 MG TABLET PO (09:10)
--- NOTE | 2021-07-01 09:10 | PM.PNCARD ---
Progress Note: A&P Additional Plan 70-year-old lady with: Atrial fibrillation of uncertain chronicity. She was admitted from the office apparently with RVR and also has had recent symptoms suggestive of TIA. Told the patient that since she has had these neurological symptoms my tendency would be to recommend rate control and anticoagulation and cardioversion in for about 4-5 weeks rather than ASHLEY cardioversion now. I have significant concern given the fact that she has had symptoms of transient cerebral ischemia we may well have left atrial clot regardless of the findings of the ASHLEY and I think the risk of cardioversion at this time is significantly higher. She understands this discussion and is agreeable. For the time being we will watch her heart rate on the metoprolol dosage. I believe she possibly can be discharged later this afternoon I will make sure she has follow-up in our office and plans for a cardioversion procedure in about 4-5 weeks. Henry Clark MD [facility] Subjective Date/time seen: Date of service: 07/01/21 09:10 Interval history: 70-year-old admitted for atrial fibrillation with rapid ventricular response, shortness breath, possible TIA Date of service 06/29/2021: She feels well today. Less short of breath. No chest pain. Date of service 06/30/2021: No chest pain, shortness breath, neurological complaints. No swelling or palpitation Date of service 07/01/2021: Patient feels reasonably well this morning is not symptomatic with her atrial fibrillation heart rate is 100-110 has not yet received this morning's dose of metoprolol. Long discussion with the patient about management strategy which would involve ASHLEY/cardioversion now or rate control and anticoagulation with ASHLEY cardioversion in 4-5 weeks. Exam Narrative: General: Very pleasant elderly female sitting upright in bed, Well developed, alert and oriented x3. No apparent distress, comfortable, pleasant, and cooperative. Head: atraumatic, normocephalic Eyes: EOM intact, sclerae anicteric, conjunctivae unremarkable Ears/Nose: external inspection of ears and nose were grossly normal Mouth/Throat: oral mucosa pink and moist Neck: supple, normal range of motion, no jugular venous distention or carotid bruits, thyroid nonpalpable, trachea midline. Cardiac: Regular rate, irregularly irregular rate and rhythm normal S1-S2, soft early systolic murmur Lungs: Faint fine rales at the bases no wheezes or rhonchi. Respirations unlabored Abdomen: Soft, nontender, nondistended, positive bowel sounds throughout. No appreciable hepatosplenomegaly, no rebound guarding or rigidity noted. Abdominal aorta nonpalpable, no appreciable bruits. Extremities: No edema, clubbing, and or cyanosis. Extremities warm and well perfused. Skin: Warm and dry without ecchymoses, rashes, and/or petechiae. Musculoskeletal: Muscle strength and tone intact throughout without obvious deformities. Vascular: Carotid upstrokes 2+ bilaterally, radial pulses 2+ bilaterally, dorsalis pedis pulses 2+ bilaterally, posterior tibialis pulses palpable bilaterally. Neurologic: Cranial nerves 2-12 grossly intact, examination grossly nonfocal Pscyhiatric: Mood calm and appropriate. Const: General: confusion Orientation/consciousness: confusion Neuro: General: confusion Speech: Abnormal speech present Objective Data Vital Signs Vital Signs: Vital Signs - 24 hr 06/30/21 10:00 06/30/21 11:08 06/30/21 12:00 Temperature 36.8 C Pulse Rate 123 H 112 H 133 H Respiratory Rate 19 Blood Pressure 122/58 L 131/84 Pulse Oximetry 96 06/30/21 14:00 06/30/21 16:00 06/30/21 18:00 Temperature 36.3 C L Pulse Rate 116 H 127 H 125 H Respiratory Rate 96 H Blood Pressure 122/97 H Pulse Oximetry 96 06/30/21 20:00 06/30/21 20:26 06/30/21 22:00 Temperature 36.1 C L Pulse Rate 131 H 131 H 134 H Respiratory Rate 24 H Blood Press
[2021-07-01] MEDS: ATORVASTATIN 20 MG TABLET PO (09:11)
[2021-07-01] MEDS: METOPROLOL TARTRATE 50 MG TAB PO ×2 (09:11→20:32)
[2021-07-01] MEDS: CEPHALEXIN 500 MG CAPSULE PO ×2 (09:11→20:32)
[2021-07-01] MEDS: DULoxetine HCL 30 MG CAPSULE.DR PO (09:12)
[2021-07-01] MEDS: FERROUS SULFATE 324 MG TABLET PO ×2 (09:25→17:41)
--- NOTE | 2021-07-01 10:42 | PM.IMPN ---
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 About 2 or 3 weeks ago she was wakened from sleep with sensations of her heart racing and shortness of breath. It was self-limiting, however she has had a few similar episodes since that time though they typically occur with exertion. She has also had 3 separate neurologic events lasting 30 minutes or less including left hand numbness with facial droop, difficulties concentrating with slurred speech, and right arm weakness/numbness with difficulties operating her cellphone. Eventually she made an appointment with her doctor 06/22/21 at which time she was found to be in atrial fibrillation at which time she was started on metoprolol and rivaroxaban. A brain MRI was also ordered though she was not able to get that scheduled until sometime next month. An echocardiogram was scheduled today and on arrival to the claim clinician's office she was complaining of shortness of breath and was found to be in atrial fibrillation with a rate into the 150s for which she was directed to the emergency department. Initial vitals showed blood pressure 148/81 tachycardic heart 132, afebrile, normal oxygen saturation 100% on room air. Initial labs showed normal white blood cell count, slight macrocytic anemia with a hemoglobin of 11, hematocrit 37%. INR 1.8, PTT 20. Creatinine seems to be at her baseline 1.5, BUN 24. Normal LFTs. Elevated troponin 0.66. Elevated BNP at 30,400. Normal cholesterol panel. Normal TSH. Negative COVID PCR. Chest x-ray showed cardiomegaly with mild pulmonary edema. CT head showed no acute intracranial findings. Chronic age-related findings. EKG on arrival showed the patient was in atrial fibrillation with rapid ventricular response with a heart rate of 142 beats per minute. She was started on a diltiazem drip at 10 mg an hour. She was started on low-dose metoprolol as well. She was admitted into the hospital with a cardiology consultation for further evaluation and workup for her atrial fibrillation with rapid ventricular response edema. Echocardiogram showing normal EF 60-65%, mild LVH, diastolic function is indeterminate. Left and right atrial chamber is severely enlarged. Mild aortic valve stenosis. Moderate pulmonary hypertension. Cardiology discontinued her diltiazem drip and was still found to be in atrial fibrillation with rapid ventricular response. Cardiology is going to perform a ASHLEY and cardioversion today Creatinine bumped up to 2.1 which is where she was on labs in 03/2019. , she still has some crackles to her lung allen and good urine output. Will hold her Lasix 20 mg today due to creatinine rise and see what cardiology says. Continue monitoring. Appreciate Cardiology input. (2) Congestive heart failure: Qualifiers: Heart failure chronicity: unspecified Heart failure type: unspecified Qualified Code(s): I50.9 - Heart failure, unspecified Code(s): I50.9 - Heart failure, unspecified Status: Acute Assessment and Plan: She will be cautiously diuresed with close monitoring of volume status and renal function. Echocardiogram normal systolic function, diastolic function was indeterminate. Congestive heart failure is most likely due to atrial fibrillation with rapid ventricular response causing pulmonary edema. She could also have a component of diastolic dysfunction since she was also found to have mild LVH. Continue monitoring.
[2021-07-01] MEDS: RIVAROXABAN 15 MG TABLET PO (17:41)
[2021-07-02] VITALS (16 sets, daily range): BP systolic 109–129; BP diastolic 52–79; PULSE 91–120; RESP 16–30; TEMP 35.7–37.1; O2SAT 96–98
[2021-07-02 06:14] LABS: Albumin Level 3.2 g/dL (3.5-5.1); Anion Gap 7 mmol/L (8-16); Blood Urea Nitrogen 50 mg/dL (7-17); Calcium 8.9 mg/dL (8.4-10.2); Carbon Dioxide 28 mmol/L (22-30); Chloride 104 mmol/L (98-107); Estimated CRCL calculation 23 ml/min; Estimated Glomerular Filt Rate 28; Glucose 95 mg/dL (65-110); Phosphorus 4.6 mg/dL (2.5-4.5); Potassium 4.3 mmol/L (3.4-5.0); Sodium 139 mmol/L (137-145)
--- NOTE | 2021-07-02 08:12 | PM.PNCARD ---
Progress Note: A&P Additional Plan 70-year-old lady with: Atrial fibrillation with underlying valvular heart disease. Patient is stable enough for discharge in my opinion. She is adequately rate controlled and anticoagulated. Because of her neurological symptoms it was my decision yesterday as I mentioned in my note that it is not a good idea to perform a cardioversion until she has been systemically anticoagulated for 4-6 weeks. Along those lines I would like her to be discharged today we will arrange for outpatient cardioversion in about 4-5 weeks. If you have any questions regarding this plan please let me know Henry Clark MD [facility] Subjective Date/time seen: Date of service: 07/02/21 08:12 Interval history: 70-year-old admitted for atrial fibrillation with rapid ventricular response, shortness breath, possible TIA Date of service 06/29/2021: She feels well today. Less short of breath. No chest pain. Date of service 06/30/2021: No chest pain, shortness breath, neurological complaints. No swelling or palpitation Date of service 07/01/2021: Patient feels reasonably well this morning is not symptomatic with her atrial fibrillation heart rate is 100-110 has not yet received this morning's dose of metoprolol. Long discussion with the patient about management strategy which would involve ASHLEY/cardioversion now or rate control and anticoagulation with ASHLEY cardioversion in 4-5 weeks. Date of service 05/01/2022: Patient is asymptomatic this morning no shortness of breath hoping to be discharged. Exam Narrative: General: Very pleasant elderly female sitting upright in bed, Well developed, alert and oriented x3. No apparent distress, comfortable, pleasant, and cooperative. Head: atraumatic, normocephalic Eyes: EOM intact, sclerae anicteric, conjunctivae unremarkable Ears/Nose: external inspection of ears and nose were grossly normal Mouth/Throat: oral mucosa pink and moist Neck: supple, normal range of motion, no jugular venous distention or carotid bruits, thyroid nonpalpable, trachea midline. Cardiac: Regular rate, irregularly irregular rate and rhythm normal S1-S2, soft early systolic murmur Lungs: Faint fine rales at the bases no wheezes or rhonchi. Respirations unlabored Abdomen: Soft, nontender, nondistended, positive bowel sounds throughout. No appreciable hepatosplenomegaly, no rebound guarding or rigidity noted. Abdominal aorta nonpalpable, no appreciable bruits. Extremities: No edema, clubbing, and or cyanosis. Extremities warm and well perfused. Skin: Warm and dry without ecchymoses, rashes, and/or petechiae. Musculoskeletal: Muscle strength and tone intact throughout without obvious deformities. Vascular: Carotid upstrokes 2+ bilaterally, radial pulses 2+ bilaterally, dorsalis pedis pulses 2+ bilaterally, posterior tibialis pulses palpable bilaterally. Neurologic: Cranial nerves 2-12 grossly intact, examination grossly nonfocal Pscyhiatric: Mood calm and appropriate. Const: General: confusion Orientation/consciousness: confusion Neuro: General: confusion Speech: Abnormal speech present Objective Data Vital Signs Vital Signs: Vital Signs - 24 hr 07/01/21 09:11 07/01/21 11:55 07/01/21 12:00 Temperature 36.6 C Pulse Rate 108 H 108 H 103 H Respiratory Rate 18 18 Blood Pressure 110/62 Pulse Oximetry 99 97 07/01/21 14:00 07/01/21 16:00 07/01/21 18:00 Temperature 36.6 C Pulse Rate 110 H 118 H 113 H Respiratory Rate 22 H Blood Pressure 115/81 Pulse Oximetry 98 07/01/21 20:00 07/01/21 20:32 07/01/21 22:00 Temperature 35.6 C L Pulse Rate 104 H 108 H 106 H Respiratory Rate 20 Blood Pressure 114/81 Pulse Oximetry 97 07/02/21 00:00 07/02/21 02:00 07/02/21 04:00 Temperature 35.7 C L Pulse Rate 112 H 94 93 Respiratory Rate 18 28 H Blood Pressure 117/52 L 129/78 Pulse Oximetry 96 97 07/02/21
[2021-07-02] MEDS: FERROUS SULFATE 324 MG TABLET PO ×2 (08:47→17:23)
[2021-07-02] MEDS: predniSONE 10 MG TABLET PO (08:47)
[2021-07-02] MEDS: METOPROLOL TARTRATE 50 MG TAB PO ×2 (08:48→21:15)
[2021-07-02] MEDS: ATORVASTATIN 20 MG TABLET PO (08:48)
[2021-07-02] MEDS: DULoxetine HCL 30 MG CAPSULE.DR PO (08:48)
[2021-07-02] MEDS: FUROSEMIDE 20 MG TABLET PO (08:49)
[2021-07-02 10:43] LABS: Magnesium 2.3 mg/dL (1.6-2.3)
--- NOTE | 2021-07-02 13:01 | PM.DS ---
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 About 2 or 3 weeks ago she was wakened from sleep with sensations of her heart racing and shortness of breath. It was self-limiting, however she has had a few similar episodes since that time though they typically occur with exertion. She has also had 3 separate neurologic events lasting 30 minutes or less including left hand numbness with facial droop, difficulties concentrating with slurred speech, and right arm weakness/numbness with difficulties operating her cellphone. Eventually she made an appointment with her doctor 06/22/21 at which time she was found to be in atrial fibrillation at which time she was started on metoprolol and rivaroxaban. A brain MRI was also ordered though she was not able to get that scheduled until sometime next month. An echocardiogram was scheduled today and on arrival to the sharples machine operator's office she was complaining of shortness of breath and was found to be in atrial fibrillation with a rate into the 150s for which she was directed to the emergency department. Initial vitals showed blood pressure 148/81 tachycardic heart 132, afebrile, normal oxygen saturation 100% on room air. Initial labs showed normal white blood cell count, slight macrocytic anemia with a hemoglobin of 11, hematocrit 37%. INR 1.8, PTT 20. Creatinine seems to be at her baseline 1.5, BUN 24. Normal LFTs. Elevated troponin 0.66. Elevated BNP at 30,400. Normal cholesterol panel. Normal TSH. Negative COVID PCR. Chest x-ray showed cardiomegaly with mild pulmonary edema. CT head showed no acute intracranial findings. Chronic age-related findings. EKG on arrival showed the patient was in atrial fibrillation with rapid ventricular response with a heart rate of 142 beats per minute. She was started on a diltiazem drip at 10 mg an hour. She was started on low-dose metoprolol as well. She was admitted into the hospital with a cardiology consultation for further evaluation and workup for her atrial fibrillation with rapid ventricular response edema. Echocardiogram showing normal EF 60-65%, mild LVH, diastolic function is indeterminate. Left and right atrial chamber is severely enlarged. Mild aortic valve stenosis. Moderate pulmonary hypertension. Cardiology discontinued her diltiazem drip and was still found to be in atrial fibrillation with rapid ventricular response. Cardiology is going to perform a ASHLEY and cardioversion today Creatinine bumped up to 2.1 which is where she was on labs in 03/2019. , she still has some crackles to her lung allen and good urine output. Will hold her Lasix 20 mg today due to creatinine rise and see what cardiology says. Continue monitoring. Appreciate Cardiology input. (2) Congestive heart failure: Qualifiers: Heart failure chronicity: unspecified Heart failure type: unspecified Qualified Code(s): I50.9 - Heart failure, unspecified Code(s): I50.9 - Heart failure, unspecified Status: Acute Assessment and Plan: She will be cautiously diuresed with close monitoring of volume status and renal function. Echocardiogram normal systolic function, diastolic function was indeterminate. Congestive heart failure is most likely due to atrial fibrillation with rapid ventricular response causing pulmonary edema. She could also have a component of diastolic dysfunction since sh
--- NOTE | 2021-07-02 14:52 | PM.IMPN ---
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 About 2 or 3 weeks ago she was wakened from sleep with sensations of her heart racing and shortness of breath. It was self-limiting, however she has had a few similar episodes since that time though they typically occur with exertion. She has also had 3 separate neurologic events lasting 30 minutes or less including left hand numbness with facial droop, difficulties concentrating with slurred speech, and right arm weakness/numbness with difficulties operating her cellphone. Eventually she made an appointment with her doctor 06/22/21 at which time she was found to be in atrial fibrillation at which time she was started on metoprolol and rivaroxaban. A brain MRI was also ordered though she was not able to get that scheduled until sometime next month. An echocardiogram was scheduled today and on arrival to the administrative medical director's office she was complaining of shortness of breath and was found to be in atrial fibrillation with a rate into the 150s for which she was directed to the emergency department. Initial vitals showed blood pressure 148/81 tachycardic heart 132, afebrile, normal oxygen saturation 100% on room air. Initial labs showed normal white blood cell count, slight macrocytic anemia with a hemoglobin of 11, hematocrit 37%. INR 1.8, PTT 20. Creatinine seems to be at her baseline 1.5, BUN 24. Normal LFTs. Elevated troponin 0.66. Elevated BNP at 30,400. Normal cholesterol panel. Normal TSH. Negative COVID PCR. Chest x-ray showed cardiomegaly with mild pulmonary edema. CT head showed no acute intracranial findings. Chronic age-related findings. EKG on arrival showed the patient was in atrial fibrillation with rapid ventricular response with a heart rate of 142 beats per minute. She was started on a diltiazem drip at 10 mg an hour. She was started on low-dose metoprolol as well. She was admitted into the hospital with a cardiology consultation for further evaluation and workup for her atrial fibrillation with rapid ventricular response edema. Echocardiogram showing normal EF 60-65%, mild LVH, diastolic function is indeterminate. Left and right atrial chamber is severely enlarged. Mild aortic valve stenosis. Moderate pulmonary hypertension. Cardiology discontinued her diltiazem drip and was still found to be in atrial fibrillation with rapid ventricular response. Cardiology was going to perform a ASHLEY cardioversion yesterday 07/01/2021 but they decided they wanted to hold off until she has been on her Xarelto for 4-6 weeks. This is something they will discuss and possibly perform outpatient in 4-6 weeks. Environmental Programs Manager saw the patient this morning and stated her rate was well controlled. When I saw the patient her heart rate was still in AFib RVR you range between 108 and 137. This is with her sitting in bed without moving around. She also had ventricular bigeminy and trigeminy which was new. Magnesium was normal. I talked to administrative medical director Dr. Galvez who was on-call who recommended starting diltiazem p.o. 120 mg daily with the 1st dose now. He states if the patient's heart rate is not well controlled less than 110 then the patient will need to stay overnight for further heart rate monitoring and further adjustments if needed. I reassessed the patient 2-1/2 hours after she received the diltiazem and her heart rate is NOT well controlled, she does have improvement with less PVCs. We will keep her overnight for further monitoring of her heart rate. Continue monitoring.
[2021-07-02] MEDS: RIVAROXABAN 15 MG TABLET PO (17:23)
[2021-07-03] VITALS (8 sets, daily range): BP systolic 95–121; BP diastolic 49–70; PULSE 86–110; RESP 19–24; TEMP 36.2–36.9; O2SAT 97–99
[2021-07-03] MEDS: DULoxetine HCL 30 MG CAPSULE.DR PO (08:51)
[2021-07-03] MEDS: FERROUS SULFATE 324 MG TABLET PO (08:51)
[2021-07-03] MEDS: predniSONE 10 MG TABLET PO (08:51)
[2021-07-03] MEDS: FUROSEMIDE 20 MG TABLET PO (08:51)
[2021-07-03] MEDS: ATORVASTATIN 20 MG TABLET PO (08:51)
[2021-07-03] MEDS: METOPROLOL TARTRATE 50 MG TAB PO (08:52)
--- NOTE | 2021-07-03 11:56 | PM.PNCARD ---
Progress Note: A&P Assessment and Plan (1) Atrial fibrillation with rapid ventricular response: Onset Date: Unknown Code(s): I48.91 - Unspecified atrial fibrillation Status: Acute Assessment and Plan: Recent diagnosis. She was admitted from our office when she was noted to be in atrial fibrillation with RVR with a rate in the 130s. She did not have symptoms of this. We have chosen a rate control strategy because of recent TIA symptoms. She needs to be anticoagulated for 4-6 weeks before safely proceeding with a DC cardioversion. As such, she should remain on her rate controlling agents of metoprolol and diltiazem as well as Xarelto for anticoagulation upon discharge. She should follow up in the office in 4-6 weeks. (2) Type 2 myocardial infarction: Code(s): I21.A1 - Myocardial infarction type 2 Status: Acute Assessment and Plan: Mild troponin elevation without anginal chest pain. This is not related to acute plaque rupture. (3) TIA (transient ischemic attack): Onset Date: Unknown Code(s): G45.9 - Transient cerebral ischemic attack, unspecified Status: Acute Assessment and Plan: Symptoms concerning for recurrent TIA. Currently asymptomatic in this regard. (4) Hypertension: Onset Date: Unknown Qualifiers: Hypertension type: primary hypertension Qualified Code(s): I10 - Essential (primary) hypertension Code(s): I10 - Essential (primary) hypertension Status: Chronic Assessment and Plan: Currently at goal. (5) Mixed hyperlipidemia: Onset Date: Unknown Code(s): E78.2 - Mixed hyperlipidemia Status: Chronic Assessment and Plan: Continue atorvastatin. Check lipid panel. 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 Monitor for bleeding. Subjective Date/time seen: 07/03/21 11:56 Interval history: 70-year-old admitted for atrial fibrillation with rapid ventricular response, shortness breath, possible TIA Date of service 06/29/2021: She feels well today. Less short of breath. No chest pain. Date of service 06/30/2021: No chest pain, shortness breath, neurological complaints. No swelling or palpitation Date of service 07/01/2021: Patient feels reasonably well this morning is not symptomatic with her atrial fibrillation heart rate is 100-110 has not yet received this morning's dose of metoprolol. Long discussion with the patient about management strategy which would involve ASHLEY/cardioversion now or rate control and anticoagulation with ASHLEY cardioversion in 4-5 weeks. Date of service 07/02/2021: Patient is asymptomatic this morning no shortness of breath hoping to be discharged. Date of service 07/03/2021: Patient remains asymptomatic today. She denies any shortness of breath, palpitations, chest pain. Plan for discharge today. Review of Systems Review of Systems: All systems reviewed & are unremarkable except as noted in HPI and below Constitutional: Constitutional: Reports as per HPI, Reports no additional constitutional complaints and Reports fatigue Eyes: Eyes: Reports as per HPI and Reports no additional eye complaints ENT: Reports system reviewed and no additional complaints, except as documented and Reports as per HPI Cardiovascular: Cardiovascular: Reports as per HPI, Reports no additional cardiovascular complaints, Denies chest pain, Reports palpitations, Reports dyspnea and Reports dyspnea on exertion Respiratory: Respiratory: Reports as per HPI, Reports no additional respiratory complaints, Reports dyspnea and Reports dyspnea on exertion Gastrointestinal: Gastrointestinal: Reports as per HPI, Reports no additional gastrointestinal complaints and Denies hematochezia Genitourinary: Genitourinary: Reports as per HPI
--- NOTE | 2021-07-03 12:19 | PM.DS ---
DS: Admitting Diagnosis Discharge Date 06/28/2021 Admitting Diagnosis Atrial Fibrillation with RVR Congestive Heart Failure NSTEMI CKD 3 TIA Mixed Hyperlipidemia Hypertension DS: Discharge Diagnosis Discharge Diagnosis (1) Atrial fibrillation with rapid ventricular response: Onset Date: Unknown Code(s): I48.91 - Unspecified atrial fibrillation Status: Acute Assessment and Plan: - Discharge on Xarelto 15 mg po daily for anticoagulation as Cardiology wants pt. on therapeutic anticoagulation for a period of 5-6 weeks prior to cardioversion. - Change Metoprolol to 50 mg po BID. - Start Cardizem Cd 120 mg po QAM - Lasix 20 mg po daily. - Follow up with PCP and with Underwear Finisher within a week of discharge and Cardiology will arrange outpatient Cardioversion. (2) Congestive heart failure: Onset Date: Unknown Qualifiers: Heart failure chronicity: unspecified Heart failure type: unspecified Qualified Code(s): I50.9 - Heart failure, unspecified Code(s): I50.9 - Heart failure, unspecified Status: Chronic Assessment and Plan: - Continue Lasix 20 mg po daily. - Follow up with Cardiology. - Continue statin therapy. - Follow a heart healthy diet. - Lifestyle changes. (3) Non-ST elevation myocardial infarction (NSTEMI): Onset Date: Unknown Code(s): I21.4 - Non-ST elevation (NSTEMI) myocardial infarction Status: Acute Assessment and Plan: - Follow up with Cardiology services as outlined above. - Mild trop elevation without active CP, most likely secondary to Atrial Fib. (4) Chronic kidney disease, stage 3: Onset Date: Unknown Qualifiers: Chronic kidney disease stage 3 subtype: stage 3b (GFR 30-44) Qualified Code(s): N18.32 - Chronic kidney disease, stage 3b Code(s): N18.30 - Chronic kidney disease, stage 3 unspecified Status: Chronic Assessment and Plan: - Eat a heart healthy, and renal diet. - Follow up with PCP for continued monitoring. (5) Hypertension: Onset Date: Unknown Qualifiers: Hypertension type: primary hypertension Qualified Code(s): I10 - Essential (primary) hypertension Code(s): I10 - Essential (primary) hypertension Status: Chronic Assessment and Plan: - Currently well controlled. - Continue Metoprolol 50 BID, Lasix 20 daily, Cardizem Cd 120 daily (6) TIA (transient ischemic attack): Onset Date: Unknown Code(s): G45.9 - Transient cerebral ischemic attack, unspecified Status: Acute Assessment and Plan: - Not symptomatic. - Continue statin therapy and follow up with PCP. 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 - Pt. to be anticoagulated for 5-6 weeks prior to undergoing ASHLEY with Cardioversion. (8) Mixed hyperlipidemia: Onset Date: Unknown Code(s): E78.2 - Mixed hyperlipidemia Status: Chronic Assessment and Plan: - Heart healthy diet - Continue Statin therapy. DS: Summary Hospital Course Hospital Course: This 70 year old female patient with significant PMH of Lupus, Interstitial lung disease, CKD, HTN, HLD, and valvular heart diseaseswas admitted to the hospital after being at her Underwear Finisher's office and it was found that she was in Atrial Fibrillation with RVR. She was sent to the ER and subsequently admitted. Here it was discovered that she has had three separate episodes of TIA/CVA activity with facial droop, weakness on the right side with numbness and difficulty operating her cellphone. On or about 06/22/21 she followed up with her doctor who did an MRI that was scheduled for a later date and she was started on Xarelto and Metoprolol as it was found then that she had Atrial Fibrillation. In conjunction with those findings,
--- NOTE | 2021-07-03 13:19 | PC.NURSE ---
Patient discharged to home. Patient alert/oriented, GILLIAM, no pain, no distress of any kind noted. Left AC IV removed with no bleeding or hematoma noted, gauze dressing applied. Patient wheelchaired to front door to waiting private vehicle. Prescriptions transmitted to patient's preferred pharmacy.
== END 2021-07-03 13:23 | disposition home or self-care (01) | DRG 281 ==
LOC: ANHED 12:45 → ANHCPC 16:35
PROVIDERS: Physician Assistant; Admitting Provider Family Medicine; Emergency Provider Emergency Medicine; PCP Internal Medicine; Visit Provider Nurse Practitioner Adult Health
DX: I48.91 Unspecified atrial fibrillation (principal); I21.4 Non-ST elevation (NSTEMI) myocardial infarction; G45.9 Transient cerebral ischemic attack, unspecified; I13.0 Hypertensive heart and chronic kidney disease with heart failure and stage 1 through stage 4 chronic kidney disease, or unspecified chronic kidney disease; J84.9 Interstitial pulmonary disease, unspecified; I27.20 Pulmonary hypertension, unspecified; Z20.822 Contact with and (suspected) exposure to COVID-19; I50.9 Heart failure, unspecified; N18.32 Chronic kidney disease, stage 3b; E78.2 Mixed hyperlipidemia; I08.3 Combined rheumatic disorders of mitral, aortic and tricuspid valves; M32.9 Systemic lupus erythematosus, unspecified; M19.90 Unspecified osteoarthritis, unspecified site; Z79.01 Long term (current) use of anticoagulants; Z79.899 Other long term (current) drug therapy
CPT/HCPCS: 36415; 70450; 70551; 71046; 80048; 80053; 80061; 80069; 83735; 83880; 84443; 84484; 85025; 85610; 85730; 93005; 93306; 93880; 96365; 96366; 96375; 96376; 99285; A9270; C9803; G0378; J1940; J7512; U0003; U0005

== ENCOUNTER → 2021-08-31 00:06 | Outpatient (CLI) | payer MEDICARE, SELFPAY ==
[2021-08-31 14:53] LABS: SARS-CoV-2 RNA PCR Negative
== END ==
PROVIDERS: PCP Internal Medicine; Visit Provider Internal Medicine Cardiovascular Disease
DX: Z01.812 Encounter for preprocedural laboratory examination (principal); Z20.822 Contact with and (suspected) exposure to COVID-19
CPT/HCPCS: C9803; U0003; U0005

== ENCOUNTER 2021-09-04 01:32 | Day surgery (SDC) | payer MEDICARE, SELFPAY ==
[2021-09-04] VITALS (12 sets, daily range): BP systolic 102–141; BP diastolic 50–104; PULSE 72–95; RESP 14–18; TEMP 36.3; O2SAT 94–100; BMI 21.6
--- NOTE | 2021-09-04 10:00 | ECG_ITS ---
Measurements Intervals [place] Rate: 99 P: [place]: 0 QRS: 7 QRSD: 84 T: 72 QT: 344 QTc: 443 Interpretive Statements ATRIAL FIBRILLATION PVC NONSPECIFIC ST CHANGES ABNORMAL RHYTHM ECG COMPARED TO ECG 06/28/2021 13:54:36 NO SIGNIFICANT CHANGES Electronically Signed On 09-04-2021 13:49:53 CDT by Toshia Neely M.D.
--- NOTE | 2021-09-04 11:50 | WPDHPUPDATE1 ---
History and Physical Update Update Date/Time: 09/04/21 11:50 Patient with AFib noted in June 2021, complaining of LISA at that time, hospitalized for RVR and rate control in June. Possible in an May/early June. Has been taking Xarelto 15 mg daily and has not missed any doses.. Patient is feeling better but would like to pursue a cardioversion for which she is admitted today. History and Physical has been reviewed, including an updated exam of the patient. There are NO changes in the patient's condition. Risks, benefits, and alternatives have been discussed and questions answered. Patient agrees to proceed with procedure.
--- NOTE | 2021-09-04 11:53 | WPDMODSED ---
Moderate Sedation Note-Pt Data Patient Data Diagnosis: Patient found to have new onset AFib RVR in June 2021 and admitted for heart rate control. She had had recent TIA like symptoms so rhythm control anticoagulation with Xarelto 15 mg daily was pursue. She was complaining of LISA at the time. She is feeling better with better heart rate control but would like to pursue elective electrical cardioversion. No history of esophageal problems or swallowing problems. Present Complaint: Persistent atrial fibrillation Procedure to be performed/Plan: Conscious sedation Transesophageal ECHO Elective electrical cardioversion Allergies Allergy/AdvReac Type Severity Reaction Status Date / Time losartan AdvReac Other Verified 09/04/21 11:12 Home Medications Medication Instructions Recorded Confirmed Type Xarelto 15 mg PO QPM 06/28/21 09/04/21 History albuterol sulfate 1 puff INHALATION PRN PRN 06/28/21 09/04/21 History atorvastatin 20 mg PO DAILY 06/28/21 09/04/21 History duloxetine 30 mg PO DAILY 06/28/21 09/04/21 History prednisone 10 mg PO DAILY 06/28/21 09/04/21 History ferrous sulfate [Iron (ferrous 325 mg PO BID 06/29/21 09/04/21 History sulfate)] diltiazem HCl 120 mg PO QAM #30 cap 07/02/21 09/04/21 Rx metoprolol tartrate 50 mg PO Q12HR #60 tablet 07/02/21 09/04/21 Rx furosemide 20 mg PO PRN PRN 09/04/21 09/04/21 History Current Medications: Active Medications Sodium Chloride (Normal Saline Iv) 1,000 mls @ 30 mls/hr IV CONT .Q24H RACHAEL Sedation/Anesthesia: No previous sedation/anesthesia problems (including family history). [facility] Past Medical History Medical History Anemia With history of blood transfusion. Anxiety Chronic kidney disease, stage 3 (Unknown) Interstitial lung disease Osteoarthritis Paroxysmal atrial fibrillation Systemic lupus erythematosus Valvular heart disease Aortic, mitral, and tricuspid regurgitation. Surgical History Surgical History History of cardiac catheterization (07/2010) History of cholecystectomy Family History Family History Mother Heart attack Sibling Pancreatic cancer Father Colon cancer Social History Social History Social History: The patient lives in [place] with her . Nonsmoker. No alcohol or illicit substance use. Surrogate decision-maker: Ricardo Araiza, spouse. CODE STATUS: Full code Mod Sed Physical Exam Physical Exam Pre Procedural Exam: Normal: Appearance, Eyes, Ears, Nose, Neck, Throat, Lungs, Heart Size, Heart Rate, Neuro Exam, Abdomen and Skin and Variation: Airway (Edentulous), Heart Rhythm (Irregular) and Extremities (Trace to mild lower extremity edema) Hours since solid foods: 12 Hours since liquid intake: 12 Mallampati Classification: class III Internal Medicine - PN: Obj Da Vital Signs Vital Signs: Vital Signs - 24 hr 09/04/21 11:19 Temperature 97.3 F L Pulse Rate 95 Respiratory Rate 14 Blood Pressure 130/62 Pulse Oximetry 100 Meds/Results Medications: Active Medications Generic Name Dose Route Start Last Admin Trade Name Freq PRN Reason Stop Dose Admin Sodium Chloride 1,000 mls @ 30 mls/hr 09/04/21 10:00 Normal Saline Iv IV CONT .Q24H RACHAEL Labs CBC & Chem 7: 09/04/21 10:50 ASA Classification/Sedation ASA Classification/Sedation ASA Class: III Emergent: No Risks: Risks, benefits and alternatives explained and patient/family accepted plan for sedation. Some risks include breathing problems, stroke, bradycardia etc.. Patient re-evaluated immediately prior to sedation.
[2021-09-04 12:00] LABS: Anion Gap 4 mmol/L (8-16); Blood Urea Nitrogen 23 mg/dL (7-17); Carbon Dioxide 27 mmol/L (22-30); Chloride 108 mmol/L (98-107); Estimated CRCL calculation 30 ml/min; Estimated Glomerular Filt Rate 37; Glucose 94 mg/dL (65-110); Potassium 4.3 mmol/L (3.4-5.0); Sodium 139 mmol/L (137-145)
--- NOTE | 2021-09-04 12:00 | ECG_ITS ---
Measurements Intervals [place] Rate: 74 P: 42 KS: 153 QRS: -24 QRSD: 93 T: 86 QT: 392 QTc: 436 Interpretive Statements SINUS RHYTHM WITH FREQUENT VENTRICULAR PREMATURE COMPLEXES WITH OCCASIONAL SUPRAVENTRICULAR PREMATURE COMPLEXES BORDERLINE LEFT AXIS DEVIATION [QRS AXIS < -20] COMPARED TO ECG 09/04/2021 10:47:28 SINUS RHYTHM NOW PRESENT Electronically Signed On 09-04-2021 13:50:52 CDT by Toshia Neely M.D.
--- NOTE | 2021-09-04 12:51 | PM.OP ---
Procedure Note - Brief Procedure Note - Brief Date of procedure: 09/04/21 Pre-op diagnosis: a-fib Post-op diagnosis: Same Procedure performed: Conscious sedation Transesophageal ECHO Cardioversion Description of procedure: Successful electrical cardioversion Surgeon: Toshia Neely MD Complications: No immediate complications Disposition: Observation
--- NOTE | 2021-09-04 12:52 | WPDTECDV ---
ASHLEY with Cardioversion Date of procedure: 09/04/21 Procedure Type: Conscious sedation Transesophageal ECHO Elective electrical cardioversion Diagnosis: Persistent atrial fibrillation Indications: Susan tiwari is a 71-year-old female who presented with AFib RVR in June requiring hospitalization for heart rate control. She had TIA like symptoms a couple weeks prior. She has been anticoagulated with Xarelto 15 mg daily and has not missed any doses. She is feeling better since her heart rate is controlled but still a little tired with some LISA and request elective electrical cardioversion. Because of the TIA symptoms I recommended a transesophageal echo prior to the procedure. Description of Procedure: Procedure: After informed consent the patient had Hurricaine spray the hypopharynx. The patient had conscious sedation as described. The transesophageal echo probe was introduced in the esophagus without difficulty. Imaging was obtained in multiplane views. Agitated saline was injected to evaluate for intracardiac shunting. The patient tolerated the procedure well with no complications. Findings: The left atrium was moderately enlarged. There is no thrombus present in the left atrium or left atrial appendage. The atrial septum appeared intact. Mitral valve was thickened, with no stenosis or prolapse. The left ventricle had had normal size and mild LVH, with mild global hypokinesis. The ejection fraction is estimated to be: 45-50%. The aortic root was normal but the aortic valve was mildly calcified. The ascending aorta, aortic arch had mild atherosclerosis, and descending thoracic aorta had mild to moderate atherosclerosis. The right atrium was moderately enlarged, and the tricuspid valve, right ventricle, pulmonic valve and pulmonic artery were all normal. There is no pericardial effusion. When agitated saline was injected intravenously there was no evidence of intracardiac shunting during normal respiration and cough. Colorflow Doppler Findings:Moderate mitral regurgitation (3 jets), mild aortic insufficiency and trace tricuspid regurgitation. Cardioversion: After informed consent and the above conscious sedation, the patient underwent elective electrical synchronized cardioversion with 150 joules of biphasic energy and converted to normal sinus rhythm with frequent APCs and PVCs. There were no complications. Sedation: Conscious sedation: Assessment: The patient has no history of anesthesia problems. The patient's oropharynx is clear. The patient was deemed to be a good candidate for conscious sedation. The patient had continuous hemodynamic and oximetric monitoring during the procedure. Start time: 1218 Completion time: 1238 Total conscious sedation time: 20 minutes Medications Used: Versed 2 mg and fentanyl 100 mcg IVP Trained observer: Tara Banuelos RN Outcome: The patient tolerated the procedure well with no complications. Findings: No thrombus in the left atrial appendage Biatrial moderate enlargement Mild left ventricular hypertrophy with mild global hypokinesis, ejection fraction 45-50% Moderate mitral regurgitation Miild aortic valve calcification Mild to moderate aortic atherosclerosis Conclusion: Successful electrical cardioversion to normal sinus rhythm with frequent APCs and PVCs. Follow-up: Will schedule an office visit and EKG the next several weeks.
== END 2021-09-04 14:30 | disposition home or self-care (01) ==
PROVIDERS: PCP Internal Medicine; Visit Provider Internal Medicine Cardiovascular Disease
PROC: 5A2204Z Restoration of Cardiac Rhythm, Single (ICD-10-PCS; principal; 2021-09-04 11:30)
PROC: (CPT 93312; 2021-09-04 11:30)
DX: I48.0 Paroxysmal atrial fibrillation (principal); I49.3 Ventricular premature depolarization; I12.9 Hypertensive chronic kidney disease with stage 1 through stage 4 chronic kidney disease, or unspecified chronic kidney disease; N18.4 Chronic kidney disease, stage 4 (severe); I25.10 Atherosclerotic heart disease of native coronary artery without angina pectoris; I34.0 Nonrheumatic mitral (valve) insufficiency; I36.1 Nonrheumatic tricuspid (valve) insufficiency; J84.9 Interstitial pulmonary disease, unspecified; M32.9 Systemic lupus erythematosus, unspecified; D64.9 Anemia, unspecified; Z79.01 Long term (current) use of anticoagulants; Z79.51 Long term (current) use of inhaled steroids
CPT/HCPCS: 36415; 80048; 83735; 92960; 93312; 93320; 93325; J2250; J3010; J7030

== ENCOUNTER 2022-07-04 14:03 | Outpatient (CLI) | payer MEDICARE, SELFPAY ==
[2022-07-04 14:22] LABS: Basophils Absolute Auto 0.03 K/mm3 (0.00-0.10); Basophils Percent Auto 0.6 % (0.0-1.0); Eosinophils Absolute Auto 0.26 K/mm3 (0.02-0.50); Eosinophils Percent Auto 5.6 % (1.0-6.0); Hematocrit 31.7 % (35.0-42.0); Hemoglobin 9.6 g/dL (11.7-13.8); Immature Granulocyte Absolute 0.07 K/mm3 (0.00-0.00); Immature Granulocyte Percent A 1.5 % (0.0-0.0); Immature Reticulocyte Fraction 12.2 % (2.0-16.52); Lymphocytes Absolute Auto 0.96 K/mm3 (1.10-4.50); Lymphocytes Percent Auto 20.7 % (18.0-42.0); Mean Corpuscular HGB Conc 30.3 g/dL (32.0-36.0); Mean Corpuscular Hemoglobin 29.4 pg (27.0-31.0); Mean Corpuscular Volume 97.2 fL (78.0-102.0); Mean Platelet Volume 9.5 fl (9.2-11.8); Monocytes Absolute Auto 0.49 K/mm3 (0.10-0.90); Monocytes Percent Auto 10.6 % (2.0-11.0); Neutrophils Absolute Auto 2.8 K/mm3 (1.7-7.2); Platelet Count Result 213 K/mm3 (150-420); Red Blood Count 3.26 M/mm3 (4.20-5.40); Red Cell Distribution Width 19.6 % (11.6-14.4); Reticulocyte Hemoglobin Conten 32.4 pg (28.0-35.0); Reticulocyte Percent 0.78 % (0.50-1.50); Reticulocytes Absolute 0.03 M/mm3 (0.02-0.1); White Blood Count 4.6 K/mm3 (4.8-10.8)
[2022-07-04 15:02] LABS: Ferritin 929 ng/mL (8-252); Iron 142 ug/dL (50-170); Percent Iron Saturation 73 % (12-57)
[2022-07-07 13:19] LABS: Erythropoietin (EPO) 47.2 mIU/mL (2.6-18.5)
[2022-07-07 23:49] LABS: Methylmalonic Acid 198 nmol/L (87-318)
[2022-07-08 11:17] LABS: Red Blood Cell Folate 830 ng/mL RBC (>280)
== END 2022-07-04 14:04 | disposition home or self-care (01) ==
LOC: CHSLAB 14:06
PROVIDERS: PCP Internal Medicine; Visit Provider Internal Medicine
DX: D64.9 Anemia, unspecified (principal); N18.9 Chronic kidney disease, unspecified
CPT/HCPCS: 36415; 82668; 82728; 82747; 83540; 83550; 83921; 85025; 85046

== ENCOUNTER 2022-08-22 08:52 | Outpatient (CLI) | payer MEDICARE, SELFPAY ==
--- NOTE | 2022-08-22 09:00 | PC.NURSE ---
presents for OP iron infusion, oriented to room and how to use call light
[2022-08-22] MEDS: IRON SUCROSE COMPLEX 500 MG in SODIUM CHLORIDE 0.9% IV 250 ML 62.5 MG IVPB (09:21)
--- NOTE | 2022-08-22 09:57 | PC.NURSE ---
Tolerating infusion at this time, call lght in reach
--- NOTE | 2022-08-22 13:26 | PC.NURSE ---
discharged to home with , tolerated well, saline lock removed
== END 2022-08-22 08:53 | disposition home or self-care (01) ==
LOC: CHSTREATRM 08:55
PROVIDERS: PCP Internal Medicine; Visit Provider Internal Medicine
DX: D50.9 Iron deficiency anemia, unspecified (principal)
CPT/HCPCS: 96365; 96366; J1756; J7050

== ENCOUNTER 2022-08-29 11:22 | Observation (INO) | payer MEDICARE, SELFPAY ==
[2022-08-29] VITALS (54 sets, daily range): BP systolic 94–148; BP diastolic 42–94; PULSE 71–93; RESP 12–38; TEMP 36.2–36.6; O2SAT 89–100; BMI 20.7
--- NOTE | ~2022-08-29 | XR_ITS ---
EXAMINATION: XR shoulder RT min 2V INDICATION: Right shoulder pain, initial encounter TECHNIQUE: Three views of the right shoulder are submitted. COMPARISON: None FINDINGS: There is an oblique greater tuberosity fracture of the proximal humerus. There is mild oste oarthritis at the glenohumeral joint and moderate osteoarthritis at the acromioclavicular joint. Soft tissues are unremarkable. IMPRESSION: 1. Obliquely greater tuberosity fracture of the proximal humerus. Reviewed, dictated and finalized at location A.
--- NOTE | ~2022-08-29 | XR_ITS ---
XR chest 1V portable 08/29/2022 11:55 Indication: Shortness of breath and weakness. Atrial fibrillation. Procedure: AP portable chest Comparison: Comparison to multiple prior studies sequentially, with oldest reviewed study dated 09/2018. Findings: Cardiomegaly with mild interstitial edema. No pleural effusion or pneumothorax. No acute os seous abnormality. Impression: 1: Cardiomegaly with mild interstitial edema. Reviewed, dictated and finalized at location A. Impression: 1: Cardiomegaly with mild interstitial edema.
--- NOTE | 2022-08-29 11:39 | ECG_ITS ---
Measurements Intervals [place] Rate: 74 P: 63 ME: 167 QRS: 42 QRSD: 86 T: 56 QT: 390 QTc: 435 Interpretive Statements SINUS RHYTHM POOR R-WAVE PROGRESSION ABNORMAL ECG COMPARED TO ECG 09/04/2021 12:40:42 PVCS ARE NO LONGER PRESENT Electronically Signed On 08-29-2022 15:46:24 CDT by Henry Clark M.D.
--- NOTE | 2022-08-29 11:42 | ED.GENADULT ---
HPI - General Adult General Chief complaint: Recheck/Abnormal Lab/Rx Stated complaint: abnormal labs Time Seen by Provider: 08/29/22 11:37 History of Present Illness HPI narrative: The patient is a 72-year-old woman with a history of atrial fibrillation on Xarelto, status post cardioversion, hypertension, hyperlipidemia, osteoarthritis, CKD stage 4, fibromyalgia, interstitial lung disease, and lupus on mycophenolate mofetil. She had received 2 units of packed red blood cells approximately 2 months ago for hemoglobin that was less than 8. She receives blood in the emergency room at [facility]. She was seen a few days later on July 04, 2022 and hemoglobin at that time was 9.6 with hematocrit of 31.7. This is decreased from a year prior on June 28, 2021 and hemoglobin was 11.7 and hematocrit was 37.7. She did have iron studies that were abnormal so she received an iron intravenous infusion 1 week ago. As part of her GI workup, her PCP has referred her for upper and lower endoscopy, currently planned for 09/15/2022. She had routine blood work done yesterday to follow-up on the packed red blood cell and iron transfusion. This revealed a hemoglobin of 5.8 with hematocrit of 18.8, white blood cell count was 4.3 with a left shift of 58% neutrophils, platelets 305. CRP 39 elevated. MCV was normal 92.6. Given this abnormal hemoglobin, she was referred here for further evaluation. Patient has been complaining of feeling weak and shortness of breath. This has been ongoing for several weeks, worsening over the last week. No chest pain or discomfort. No abdominal pain. No nausea vomiting. No hematochezia or melena. Related Data Home Medications Medication Instructions Recorded Confirmed albuterol sulfate 90 mcg/actuation 1 puff inhalation PRN PRN 06/28/21 08/29/22 aerosol inhaler Shortness Of Breath atorvastatin 20 mg tablet 20 mg PO DAILY 06/28/21 08/29/22 duloxetine 30 mg capsule,delayed 30 mg PO DAILY 06/28/21 08/29/22 release rivaroxaban 15 mg tablet (Xarelto) 15 mg PO QPM 06/28/21 08/29/22 calcium carbonate 600 mg calcium 1,500 mg PO DAILY 08/29/22 08/29/22 (1,500 mg) tablet (Calcium) famotidine 40 mg tablet 40 mg PO DAILY 08/29/22 08/29/22 ferrous sulfate 325 mg (65 mg 325 mg PO TID 08/29/22 08/29/22 iron) tablet fluticasone furoate 200 1 inh inhalation DAILY 08/29/22 08/29/22 mcg/actuation blister powder for inhalation (Arnuity Ellipta) folic acid 1 mg tablet 1 mg PO DAILY 08/29/22 08/29/22 mycophenolate mofetil 500 mg tablet 1,000 mg PO BID 08/29/22 08/29/22 prednisone 10 mg tablet See Rx Instructions .Route .COMPLEX 08/29/22 08/29/22 prednisone 2.5 mg tablet 2.5 mg PO DAILY 08/29/22 08/29/22 Allergies Allergy/AdvReac Type Severity Reaction Status Date / Time lisinopril Allergy Cough Verified 08/29/22 11:36 losartan AdvReac Other Verified 08/29/22 11:36 Review of Systems Review of Systems: All systems reviewed & are unremarkable except as noted in HPI and below Constitutional: Constitutional: Reports as per HPI, Reports no additional constitutional complaints, Denies chills, Denies excessive sweating, Reports fatigue, Denies fever(s), Denies headache(s) and Reports weakness ( generalized) Eyes: Eyes: Reports as per HPI, Reports no additional eye complaints, Denies change in vision and Denies photophobia ENT: Reports system reviewed and no additional complaints, except as documented, Reports as per HPI, Denies dysphagia, Denies vertigo, Denies headache(s), Denies lip swelling, Denies nasal congestion, Denies sore throat, Denies throat swelling and Denies tongue swelling Cardiovascular: Cardiovascular: Reports as per HPI, Reports no additional cardiovascular complaints, Denies chest pain, Denies syncope, Denies rapid heart rate and Reports dyspnea Respiratory: Respiratory: Reports as per HPI, Reports no additional respiratory complaints, Denies chest congestion, Denies cough, Reports dyspnea and
[2022-08-29 12:02] LABS: Basophils Absolute Auto 0.01 K/mm3 (0.00-0.10); Basophils Percent Auto 0.2 % (0.0-1.0); Eosinophils Absolute Auto 0.32 K/mm3 (0.02-0.50); Eosinophils Percent Auto 7.3 % (1.0-6.0); Immature Granulocyte Absolute 0.02 K/mm3 (0.00-0.00); Immature Granulocyte Percent A 0.5 % (0.0-0.0); Lymphocytes Absolute Auto 0.94 K/mm3 (1.10-4.50); Lymphocytes Percent Auto 21.4 % (18.0-42.0); Mean Corpuscular HGB Conc 29.7 g/dL (32.0-36.0); Mean Corpuscular Hemoglobin 28.9 pg (27.0-31.0); Mean Corpuscular Volume 97.4 fL (78.0-102.0); Mean Platelet Volume 9.9 fl (9.2-11.8); Monocytes Absolute Auto 0.38 K/mm3 (0.10-0.90); Monocytes Percent Auto 8.7 % (2.0-11.0); Neutrophils Absolute Auto 2.7 K/mm3 (1.7-7.2); Neutrophils Percent Auto 61.9 % (50.0-70.0); Platelet Count Result 319 K/mm3 (150-420); Red Cell Distribution Width 22.2 % (11.6-14.4); White Blood Count 4.4 K/mm3 (4.8-10.8)
[2022-08-29 12:06] LABS: Hematocrit 18.5 % (35.0-42.0); Hemoglobin 5.5 g/dL (11.7-13.8)
--- NOTE | 2022-08-29 12:10 | PC.NURSE ---
BLOOD CONSENT OBTAINED. PT IS SITTING UP ON STRETCHER TALKING WITH DAUGHTER. WARM BLANKET PROVIDED. NO COMPLAINTS OR NEEDS AT THIS TIME. WILL CONTINUE TO MONITOR.
[2022-08-29 12:16] LABS: INR 1.2; Partial Thromboplastin Time 41.6 SEC (23.90-30.70)
[2022-08-29 12:19] LABS: Iron 176 ug/dL (50-170); Percent Iron Saturation 98 % (12-57)
[2022-08-29 12:23] LABS: Alanine Aminotransferase 16 U/L (14-59); Albumin Level 2.6 g/dL (3.4-5.0); Alkaline Phosphatase 88 U/L (46-116); Anion Gap 9 mmol/L (8-16); Aspartate Amino Transferase 17 U/L (15-37); Bilirubin,Total 0.3 mg/dL (0.00-1.00); Blood Urea Nitrogen 13 mg/dL (7-18); Calcium 8.4 mg/dL (8.5-10.1); Carbon Dioxide 25 mmol/L (21-32); Chloride 107 mmol/L (98-108); Estimated Glomerular Filt Rate 44; Glucose 97 mg/dL (70-99); NT Pro B Type Natriuretic Pept 4172 pg/mL (0-125); Osmolality Calculated 292 mOsm/kg (285-295); Potassium 3.8 mmol/L (3.5-5.1); Sodium 141 mmol/L (136-145); Troponin I 30.6 ng/L (0.00-60.4)
[2022-08-29 13:07] LABS: Occult Blood Negative (Negative)
--- NOTE | 2022-08-29 13:09 | PC.NURSE ---
rectal exam completed per erp, tech at bedside during exam. family has returned to bedside. pt is currently eating lunch per erp order. pt denies any needs or complaints. pt has blood infusing as ordered without difficulty or reaction noted. will continue to monitor.
[2022-08-29] MEDS: POTASSIUM BICARBONATE 25 MEQ TABEF 50 MEQ PO ×2 (13:27→16:11)
[2022-08-29] MEDS: PANTOPRAZOLE SODIUM IV 40 MG VIAL IV PUSH (13:28)
[2022-08-29] MEDS: SODIUM CHLORIDE 0.9% IV 250 ML 30 ML IV CONT (13:28)
[2022-08-29] MEDS: FUROSEMIDE INJ 40 MG/4 ML VIAL IV PUSH ×2 (13:28→16:11)
[2022-08-29 13:36] LABS: SARS-CoV-2 RNA PCR Positive (Negative)
--- NOTE | 2022-08-29 14:36 | PC.NURSE ---
PT HAS BEEN UP TO BEDSIDE COMMODE SEVERAL TIMES WITHOUT DIFFICULTY. DAUGHTER AND GRANDDAUGHTER ARE AT BEDSIDE. NAD NOTED. PT DENIES ANY NEEDS OR COMPLAINTS. VSS PER MONITOR. NAD NOTED. WILL CONTINUE TO MONITOR. BLOOD CONTINUES TO INFUSE WITHOUT DIFFICULTY.
--- NOTE | 2022-08-29 15:13 | PC.NURSE ---
PT IS SITTING UP ON STRETCHER TALKING WITH FAMILY, NAD NOTED. PT DENIES ANY NEEDS OR COMPLAINTS. VSS PER MONITOR. REPORT TO ALEXANDRA MAJANO. 1ST TRANSFUSION IS COMPLETE AT THIS TIME.
--- NOTE | 2022-08-29 16:30 | PC.NURSE ---
Pt is resting c family at bedside, transfusin 2nd unit of blood s problems or difficulty. PT VSS, no c/o, pt call kent at side.
[2022-08-29] MEDS: ACETAMINOPHEN 500 MG TABLET 1000 MG PO (17:33)
[2022-08-29 18:42] LABS: Basophils Absolute Auto 0.03 K/mm3 (0.00-0.10); Basophils Percent Auto 0.7 % (0.0-1.0); Eosinophils Absolute Auto 0.42 K/mm3 (0.02-0.50); Eosinophils Percent Auto 9.4 % (1.0-6.0); Hematocrit 27.6 % (35.0-42.0); Hemoglobin 8.6 g/dL (11.7-13.8); Immature Granulocyte Absolute 0.02 K/mm3 (0.00-0.00); Immature Granulocyte Percent A 0.4 % (0.0-0.0); Lymphocytes Absolute Auto 0.85 K/mm3 (1.10-4.50); Lymphocytes Percent Auto 18.9 % (18.0-42.0); Mean Corpuscular HGB Conc 31.2 g/dL (32.0-36.0); Mean Corpuscular Hemoglobin 28.4 pg (27.0-31.0); Mean Corpuscular Volume 91.1 fL (78.0-102.0); Mean Platelet Volume 9.7 fl (9.2-11.8); Monocytes Absolute Auto 0.57 K/mm3 (0.10-0.90); Monocytes Percent Auto 12.7 % (2.0-11.0); Neutrophils Absolute Auto 2.6 K/mm3 (1.7-7.2); Neutrophils Percent Auto 57.9 % (50.0-70.0); Platelet Count Result 281 K/mm3 (150-420); Red Blood Count 3.03 M/mm3 (4.20-5.40); Red Cell Distribution Width 20.6 % (11.6-14.4); White Blood Count 4.5 K/mm3 (4.8-10.8)
[2022-08-29 18:57] LABS: Alanine Aminotransferase 14 U/L (14-59); Albumin Level 2.6 g/dL (3.4-5.0); Alkaline Phosphatase 88 U/L (46-116); Anion Gap 7 mmol/L (8-16); Aspartate Amino Transferase 17 U/L (15-37); Bilirubin,Total 0.5 mg/dL (0.00-1.00); Blood Urea Nitrogen 15 mg/dL (7-18); Calcium 8.2 mg/dL (8.5-10.1); Carbon Dioxide 30 mmol/L (21-32); Chloride 106 mmol/L (98-108); Estimated CRCL calculation 29 ml/min; Estimated Glomerular Filt Rate 38; Glucose 101 mg/dL (70-99); Osmolality Calculated 296 mOsm/kg (285-295); Potassium 5.4 mmol/L (3.5-5.1); Sodium 143 mmol/L (136-145)
[2022-08-29] MEDS: SODIUM BICARBONATE 8.4% 50 MEQ/50 ML SYRINGE IV PUSH (19:26)
[2022-08-29] MEDS: DEXTROSE 50% 25 GM/50 ML SYRINGE IV PUSH ×2 (19:26→21:20)
[2022-08-29] MEDS: INSULIN HUMAN REGULAR (*BKC) 1,000 UNITS/10 ML VIAL 7 UNITS IV PUSH (19:27)
[2022-08-29] MEDS: CALCIUM GLUC 2,000 MG/NS 100ML 2,000 MG/100 ML BAG 100 MG IVPB (19:34)
--- NOTE | 2022-08-29 19:39 | PC.NURSE ---
Pt sitting up bedside, ERP in to discuss tests c pt and lab values. Orders received to treat pts K+ level, pt informed on POC and given sandwich and food to eat at this time.
--- NOTE | 2022-08-29 20:33 | PC.NURSE ---
Pt resting, watching TV, no c/o, VSS, explained POC and blood redraw in about 15min. Pt states understanding, call kent at pt side.
[2022-08-29 21:07] LABS: Alanine Aminotransferase 11 U/L (14-59); Albumin Level 2.6 g/dL (3.4-5.0); Alkaline Phosphatase 89 U/L (46-116); Anion Gap 6 mmol/L (8-16); Aspartate Amino Transferase 10 U/L (15-37); Bilirubin,Total 0.5 mg/dL (0.00-1.00); Blood Urea Nitrogen 16 mg/dL (7-18); Calcium 9.1 mg/dL (8.5-10.1); Carbon Dioxide 34 mmol/L (21-32); Chloride 104 mmol/L (98-108); Estimated CRCL calculation 28 ml/min; Estimated Glomerular Filt Rate 36; Glucose 51 mg/dL (70-99); Osmolality Calculated 296 mOsm/kg (285-295); Potassium 4.7 mmol/L (3.5-5.1); Sodium 144 mmol/L (136-145); Total Protein 5.9 g/dL (6.4-8.2)
--- NOTE | 2022-08-29 21:22 | PC.NURSE ---
Pts BS is at 51 c lab values reported to ERP. Orders obtained for dextrose IVP and to continue to monitor. Pt willing to stay over for obs. per ERP order. VSS.
[2022-08-29 21:55] LABS: Glucose Point of Care 202 mg/dl (65-105)
--- NOTE | 2022-08-29 21:55 | PC.NURSE ---
BS recheck is now 202, pt on phone c spouse, VSS.
--- NOTE | 2022-08-29 22:05 | PC.NURSE ---
Call to floor for bed assignment, pt to go to Rm [id number]
--- NOTE | 2022-08-29 22:40 | PC.NURSE ---
patient admitted to the 2nd floor at 2230
[2022-08-30] VITALS: BP 135/78; PULSE 86; RESP 16; TEMP 36.3; O2SAT 97
[2022-08-30 00:44] LABS: Glucose Point of Care 100 mg/dl (65-105)
--- NOTE | 2022-08-30 00:45 | PC.NURSE ---
rechecked blood glucose 100 result. patient was given the rest of her [employer]eps[employer] and taniya ballardbert. instructed on hypoglycemia symptoms and instructed to call if she needs anything or has any of the symptoms.
[2022-08-30] MEDS: ACETAMINOPHEN 325 MG TABLET 650 MG PO (01:05)
[2022-08-30 05:28] LABS: Hematocrit 25.9 % (35.0-42.0); Hemoglobin 8.1 g/dL (11.7-13.8); Mean Corpuscular HGB Conc 31.3 g/dL (32.0-36.0); Mean Corpuscular Hemoglobin 28.2 pg (27.0-31.0); Mean Corpuscular Volume 90.2 fL (78.0-102.0); Mean Platelet Volume 10.2 fl (9.2-11.8); Platelet Count Result 283 K/mm3 (150-420); Red Blood Count 2.87 M/mm3 (4.20-5.40); Red Cell Distribution Width 21.5 % (11.6-14.4); White Blood Count 4.2 K/mm3 (4.8-10.8)
[2022-08-30 05:44] LABS: Alanine Aminotransferase 14 U/L (14-59); Albumin Level 2.4 g/dL (3.4-5.0); Alkaline Phosphatase 85 U/L (46-116); Anion Gap 5 mmol/L (8-16); Aspartate Amino Transferase 15 U/L (15-37); Bilirubin,Total 0.3 mg/dL (0.00-1.00); Blood Urea Nitrogen 18 mg/dL (7-18); Calcium 8.3 mg/dL (8.5-10.1); Carbon Dioxide 34 mmol/L (21-32); Chloride 102 mmol/L (98-108); Estimated CRCL calculation 25 ml/min; Estimated Glomerular Filt Rate 32; Glucose 97 mg/dL (70-99); Osmolality Calculated 293 mOsm/kg (285-295); Potassium 4.6 mmol/L (3.5-5.1); Sodium 141 mmol/L (136-145); Total Protein 5.5 g/dL (6.4-8.2)
--- NOTE | 2022-08-30 06:12 | PC.NURSE ---
Mario Dorsey NP, notified of critical magnesium value; New orders received and noted to give pt 4 gm of magnesium sulfate IV at this time.
[2022-08-30] MEDS: MAGNESIUM SULF 4 GM/WATER100ML 4 GM/100 ML BAG IVPB (06:21)
--- NOTE | 2022-08-30 06:23 | PC.NURSE ---
Magnesium sulfate 4 gm IV hung and infusing as ordered.
[2022-08-30 08:00] VITALS: BP 140/80; PULSE 82; RESP 16; TEMP 36.3; O2SAT 98
[2022-08-30 08:01] LABS: Glucose Point of Care 108 mg/dl (65-105)
[2022-08-30] MEDS: FAMOTIDINE 20 MG TABLET 40 MG PO (09:17)
[2022-08-30] MEDS: DULoxetine HCL 30 MG CAPSULE.DR PO (09:17)
[2022-08-30] MEDS: FOLIC ACID 1 MG TABLET PO (09:18)
[2022-08-30] MEDS: ATORVASTATIN 10 MG TABLET 20 MG PO (09:18)
[2022-08-30 09:39] VITALS: PULSE 82
[2022-08-30] MEDS: METOPROLOL TARTRATE 50 MG TAB PO (09:39)
--- NOTE | 2022-08-30 11:00 | PM.SD2 ---
Same Day Admit/Disch: HPI History of Present Illness Chief complaint: abnormal labs Narrative: Susan Araiza is a 72 year old female that was symptom receive department for hemoglobin of 5. Patient has a history hypertension, hyperlipidemia, osteoarthritis, kidney disease stage 4, fibromyalgia, lung disease, lupus, and anemia unknown etiology. According to patient she experience shortness of breath and was given reported that her hemoglobin was low and that she needed to come to our urgency department for a blood transfusion. Patient notes that her primary care physician did an occult blood on her which was positive and she has a EGD with colonoscopy set up in the near future. She also noted that she had iron transfusion recently and that she has an appointment with her primary care physician on Thursday for a repeat lab to see her status. Patient also noted that approximately 1 week ago she fell while in the shower. X-ray shows a fracture of the proximal humerus. She also informed me that her control specialist and damage adjuster stated that she is not a candidate for any type of surgery. Awaiting call back from Orthopedic surgery for recommendation on discharge. Patient was COVID positive she is asymptomatic patient WBC is 4.4, hemoglobin 5.5 hematocrit 18.5, platelets 319 occult blood negative, sodium 141, potassium 3.8, BUN 13 creatinine 120, glucose 97, BUN 4172, troponin 30.6. The patient denies SOB, CP, palpitation, extremity numbness, lightheadedness, dizziness, constipation, diarrhea, chills, or fever. Spoke with orthopedic surgery and it will be okay if patient discharged home with a sling and follow-up with her primary care since she is not candidate for surgery. [facility] Past Medical History Medical History Anemia With history of blood transfusion. Anxiety Chronic kidney disease, stage 3 (Unknown) Interstitial lung disease Osteoarthritis Paroxysmal atrial fibrillation Systemic lupus erythematosus Valvular heart disease Aortic, mitral, and tricuspid regurgitation. Surgical History Surgical History History of cardiac catheterization (07/2010) History of cholecystectomy Family History Family History Mother Heart attack Sibling Pancreatic cancer Father Colon cancer Social History Social History Social History: The patient lives in [place] with her . Nonsmoker. No alcohol or illicit substance use. Surrogate decision-maker: Ricardo Araiza, spouse. CODE STATUS: Full code Smoking status: Never smoker Second hand tobacco smoke exposure: Yes (children smoke around her) Alcohol intake: unknown Substance use: never Substance use type: does not use Lack of Transportation: No Lack of Food: Never True Current Housing: I Have Housing Concerned About Future Housing: No Difficulty Paying Gas/Electric Bills: No Difficulty Paying for Meds: No Currently Unemployed: No Education: High School Diploma/GED Difficulty w/ Childcare or Family Care: No Spiritual care concerns: No Same Day Admit/Disch: Med Pre-admit Medications Home Medications Medication Instructions Recorded Confirmed Type albuterol sulfate 90 mcg/actuation 1 puff inhalation PRN PRN 06/28/21 08/29/22 History aerosol inhaler Shortness Of Breath atorvastatin 20 mg tablet 20 mg PO DAILY 06/28/21 08/29/22 History duloxetine 30 mg capsule,delayed 30 mg PO DAILY 06/28/21 08/29/22 History release diltiazem HCl 120 mg capsule,24 120 mg PO QAM #30 caps 07/02/21 08/29/22 Rx hr,extended release metoprolol tartrate 50 mg tablet 50 mg PO Q12HR #60 tabs 07/02/21 08/29/22 Rx calcium carbonate 600 mg calcium 1,500 mg PO DAILY 08/29/22 08/29/22 History (1,500 mg) tablet (Calcium) fluticasone furoate 200 1 inh inhalati
--- NOTE | 2022-08-30 12:31 | PC.NURSE ---
Pt unable to urinate at this time. Previously urinated prior to getting dressed.
--- NOTE | 2022-08-30 13:36 | PC.NURSE ---
Pt given discharge instructions regarding medications new and discontinued, follow up appointment with PCP, use of sling for Right arm. Pt taken to family car via WC and assisted getting in.
--- NOTE | 2022-09-03 15:00 | PC.NURSE ---
Unable to contact for discharge call back.
== END 2022-08-30 11:50 | disposition home or self-care (01) ==
LOC: CHSED 21:29 → CHS2ND 22:08
PROVIDERS: Nurse Practitioner; Admitting Provider Internal Medicine; Emergency Provider Emergency Medicine; PCP Internal Medicine; Visit Provider Internal Medicine
DX: D64.9 Anemia, unspecified (principal); U07.1 COVID-19; S42.251A Displaced fracture of greater tuberosity of right humerus, initial encounter for closed fracture; I48.20 Chronic atrial fibrillation, unspecified; I13.0 Hypertensive heart and chronic kidney disease with heart failure and stage 1 through stage 4 chronic kidney disease, or unspecified chronic kidney disease; I50.9 Heart failure, unspecified; N18.32 Chronic kidney disease, stage 3b; I08.3 Combined rheumatic disorders of mitral, aortic and tricuspid valves; J84.9 Interstitial pulmonary disease, unspecified; E78.5 Hyperlipidemia, unspecified; M32.9 Systemic lupus erythematosus, unspecified; M79.7 Fibromyalgia; M19.90 Unspecified osteoarthritis, unspecified site; F41.9 Anxiety disorder, unspecified; W18.2XXA Fall in (into) shower or empty bathtub, initial encounter; Z28.310 Unvaccinated for COVID-19; Z79.01 Long term (current) use of anticoagulants
CPT/HCPCS: 36415; 36430; 71045; 73030; 80053; 82272; 82948; 83540; 83550; 83735; 83880; 84484; 85025; 85027; 85610; 85730; 86850; 86900; 86901; 86920; 93005; 96361; 96365; 96375; 96376; 99285; A9270; C9113; G0378; J0613; J1815; J1940; J3475; J7050; P9016; U0003; U0005

== ENCOUNTER 2022-09-15 00:27 | Day surgery (SDC) | payer MEDICARE, SELFPAY ==
[2022-09-09 15:02] VITALS: BMI 20.7
--- NOTE | 2022-09-14 19:39 | PM.HPGS ---
History of Present Illness History of Present Illness Consent: Risks, benefits, and alternatives have been discussed and questions answered. Patient agrees to proceed with procedure. Chief complaint: AKANKSHA Narrative: Susan Araiza is a 72 year old female recently found to be anemic with hgb 5.1 She was given 2 units of packed red blood cells with increase hemoglobin up to 8.1. She had fallen at home and fractured humerus. Xarelto was d/c'd Review of Systems Review of Systems: All systems reviewed & are unremarkable except as noted in HPI and below PMFSH Past Medical History Medical History Anemia With history of blood transfusion. Anxiety Chronic kidney disease, stage 3 (Unknown) Interstitial lung disease Osteoarthritis Paroxysmal atrial fibrillation Systemic lupus erythematosus Valvular heart disease Aortic, mitral, and tricuspid regurgitation. Surgical History Surgical History History of cardiac catheterization (07/2010) History of cholecystectomy Family History Family History Mother Heart attack Sibling Pancreatic cancer Father Colon cancer Social History Social History Social History: The patient lives in [place] with her . Nonsmoker. No alcohol or illicit substance use. Surrogate decision-maker: Ricardo Araiza, spouse. CODE STATUS: Full code Smoking status: Never smoker Second hand tobacco smoke exposure: Yes (children smoke around her) Alcohol intake: never Substance use: never Substance use type: does not use Lack of Transportation: No Lack of Food: Never True Current Housing: I Have Housing Concerned About Future Housing: No Difficulty Paying Gas/Electric Bills: No Difficulty Paying for Meds: No Currently Unemployed: No Education: High School Diploma/GED Difficulty w/ Childcare or Family Care: No Living arrangements: with family Spiritual care concerns: No Meds Home Medications and Allergies Home Medications Medication Instructions Recorded Confirmed Type atorvastatin 20 mg tablet 20 mg PO DAILY 06/28/21 09/15/22 History duloxetine 30 mg capsule,delayed 30 mg PO DAILY 06/28/21 09/15/22 History release diltiazem HCl 120 mg capsule,24 120 mg PO QAM #30 caps 07/02/21 09/15/22 Rx hr,extended release metoprolol tartrate 50 mg tablet 50 mg PO Q12HR #60 tabs 07/02/21 09/15/22 Rx calcium carbonate 600 mg calcium 1,500 mg PO DAILY 08/29/22 09/09/22 History (1,500 mg) tablet (Calcium) folic acid 1 mg tablet 1 mg PO DAILY 08/29/22 09/15/22 History mycophenolate mofetil 500 mg tablet 1,000 mg PO BID 08/29/22 09/09/22 History hydrocodone 10 mg-acetaminophen 1 tablet PO Q6H PRN pain #14 tabs 08/30/22 09/09/22 Rx 325 mg tablet pantoprazole 40 mg tablet,delayed 40 mg PO BID 4 weeks #56 tabs 08/30/22 09/09/22 Rx release Allergies Allergy/AdvReac Type Severity Reaction Status Date / Time lisinopril Allergy Cough Verified 09/15/22 09:15 losartan AdvReac Other Verified 09/15/22 09:15 Exam Const: General: alert Orientation/consciousness: patient oriented x3 Resp: Auscultation: clear to auscultation bilaterally Cardio: Rhythm: regular rhythm GI: GI Palp: Yes Soft to palpation and No Tenderness to palpation present (GI) Neuro: General: patient oriented x3 Assessment and Plan Assessment and plan (1) Symptomatic anemia: Code(s): D64.9 - Anemia, unspecified Status: Acute Assessment and Plan: EGD with possible biopsy or dilatation or cautery. Colonoscopy with possible biopsy or polypectomy or cautery or injection of substances.
[2022-09-15 09:25] VITALS: BP 131/66; PULSE 84; RESP 20; TEMP 36.2; O2SAT 97
[2022-09-15] MEDS: LACTATED RINGERS 1,000 ML 150 ML IV CONT (09:33)
--- NOTE | 2022-09-15 09:46 | WPDANESEPPF ---
Anes - Initial Pre Proc Eval Procedure: Operation Date: 09/15/22 10:45 Proposed Procedures p Esophagogastroduodenoscopy & Colonoscopy - Alexandro Shaffer MD Date/Time: 09/15/22 09:46 Surgeon: Alexandro Shaffer MD Pre Op Diagnosis: AKANKSHA Patient Data Age: 72 Gender: F Height: 1.68 m Weight: 58.2 kg Last Vital Signs Temp 97.1 F L 09/15/22 09:25 Pulse 84 09/15/22 09:25 Resp 20 09/15/22 09:25 BP 131/66 09/15/22 09:25 Pulse Ox 97 09/15/22 09:25 O2 Del Method Room Air 09/15/22 09:25 Allergies Allergy/AdvReac Type Severity Reaction Status Date / Time lisinopril Allergy Cough Verified 09/15/22 09:15 losartan AdvReac Other Verified 09/15/22 09:15 Home Medications Medication Instructions Recorded Confirmed Type atorvastatin 20 mg tablet 20 mg PO DAILY 06/28/21 09/15/22 History duloxetine 30 mg capsule,delayed 30 mg PO DAILY 06/28/21 09/15/22 History release diltiazem HCl 120 mg capsule,24 120 mg PO QAM #30 caps 07/02/21 09/15/22 Rx hr,extended release metoprolol tartrate 50 mg tablet 50 mg PO Q12HR #60 tabs 07/02/21 09/15/22 Rx calcium carbonate 600 mg calcium 1,500 mg PO DAILY 08/29/22 09/09/22 History (1,500 mg) tablet (Calcium) folic acid 1 mg tablet 1 mg PO DAILY 08/29/22 09/15/22 History mycophenolate mofetil 500 mg tablet 1,000 mg PO BID 08/29/22 09/09/22 History hydrocodone 10 mg-acetaminophen 1 tablet PO Q6H PRN pain #14 tabs 08/30/22 09/09/22 Rx 325 mg tablet pantoprazole 40 mg tablet,delayed 40 mg PO BID 4 weeks #56 tabs 08/30/22 09/09/22 Rx release Patient hx anesthesia problems: none Family hx anesthesia problems: none Results Review: All pre-operative results and documents have been reviewed as part of the pre-operative evaluation. [facility] Past Medical History Medical History Anemia With history of blood transfusion. Anxiety Chronic kidney disease, stage 3 (Unknown) Interstitial lung disease Osteoarthritis Paroxysmal atrial fibrillation Systemic lupus erythematosus Valvular heart disease Aortic, mitral, and tricuspid regurgitation. Surgical History Surgical History History of cardiac catheterization (07/2010) History of cholecystectomy Family History Family History Mother Heart attack Sibling Pancreatic cancer Father Colon cancer Social History Social History Social History: The patient lives in [place] with her . Nonsmoker. No alcohol or illicit substance use. Surrogate decision-maker: Ricardo Araiza, spouse. CODE STATUS: Full code Smoking status: Never smoker Second hand tobacco smoke exposure: Yes (children smoke around her) Alcohol intake: never Substance use: never Substance use type: does not use Lack of Transportation: No Lack of Food: Never True Current Housing: I Have Housing Concerned About Future Housing: No Difficulty Paying Gas/Electric Bills: No Difficulty Paying for Meds: No Currently Unemployed: No Education: High School Diploma/GED Difficulty w/ Childcare or Family Care: No Living arrangements: with family Spiritual care concerns: No Anes - Eval Final PreProcedure Day of Procedure 09/15/22 09:46 Patient weight: normal Heart: regular rate and rhythm Lungs: clear to auscultation Airway: Mallampati scale class III Neurological: alert and oriented Last oral intake: >/= 8 hours ASA classification: III Emergent: no Anesthetic plan: proceed Anesthesia type and monitoring: general GIVS and standard monitoring Results Review: All pre-operative results and documents have been reviewed as part of the pre-operative evaluation. Informed Consent: The patient's anesthetic plan and its attendant risks and benefits were discussed with the patient/family/POA. [facility]
--- NOTE | 2022-09-15 10:39 | SUR.OPER ---
EGD end 1034 COLONOSCOPY START 1040
[2022-09-15 10:59] VITALS: BP 99/45; PULSE 63; RESP 16; O2SAT 93
[2022-09-15 11:09] VITALS: BP 99/50; PULSE 69; RESP 18; O2SAT 98
[2022-09-15 11:19] VITALS: BP 109/56; PULSE 74; RESP 19; O2SAT 99
== END 2022-09-15 11:47 | disposition home or self-care (01) ==
PROVIDERS: PCP Internal Medicine; Visit Provider Internal Medicine Gastroenterology
PROC: 0DJ08ZZ Inspection of Upper Intestinal Tract, Via Natural or Artificial Opening Endoscopic (ICD-10-PCS; CPT 43235; principal; 2022-09-15 10:45)
DX: D64.9 Anemia, unspecified (principal); K21.00 Gastro-esophageal reflux disease with esophagitis, without bleeding; I48.0 Paroxysmal atrial fibrillation; N18.30 Chronic kidney disease, stage 3 unspecified; J84.9 Interstitial pulmonary disease, unspecified; I08.3 Combined rheumatic disorders of mitral, aortic and tricuspid valves; M32.9 Systemic lupus erythematosus, unspecified; F41.9 Anxiety disorder, unspecified
CPT/HCPCS: 45378; 43239; 87081; J2704; J7120

== ENCOUNTER 2022-11-27 14:11 | Outpatient (CLI) | payer MEDICARE, SELFPAY ==
[2022-11-27 14:26] LABS: Basophils Absolute Auto 0.1 K/mm3 (0.0-0.1); Eosinophils Absolute Auto 0.5 K/mm3 (0-0.3); Eosinophils Percent Auto 8.1 % (0-4.4); Hematocrit 30.5 % (37.0-47.0); Hemoglobin 9.4 g/dL (12.0-15.0); Immature Granulocyte Absolute 0.01 K/mm3 (0.00-0.031); Immature Granulocyte Percent A 0.1 % (0-0.5); Lymphocytes Absolute Auto 2.61 K/mm3 (0.9-3.2); Mean Corpuscular HGB Conc 30.8 g/dl (32-36); Mean Corpuscular Volume 100.7 fl (80-100); Mean Platelet Volume 9.2 fl (7.4-10.4); Monocytes Absolute Auto 0.7 K/mm3 (0.1-0.6); Monocytes Percent Auto 10.2 % (2.6-8.5); Neutrophils Absolute Auto 2.8 K/mm3 (1.3-6.7); Neutrophils Percent Auto 41.6 % (45.5-73.1); Platelet Count Result 234 k/mm3 (150-375); Red Blood Count 3.03 M/mm3 (4.2-5.4); Red Cell Distribution Width 13.8 % (11.5-14.5); White Blood Count 6.7 K/mm3 (4.5-10.0)
[2022-11-27 19:42] LABS: Alanine Aminotransferase 23 U/L (6-35); Albumin Level 3.7 g/dL (3.5-5.1); Alkaline Phosphatase 93 U/L (38-126); Anion Gap 6 mmol/L (8-16); Aspartate Amino Transferase 32 U/L (14-36); Bilirubin,Total 0.2 mg/dL (0.2-1.3); Blood Urea Nitrogen 17 mg/dL (7-17); Calcium 8.8 mg/dL (8.4-10.2); Carbon Dioxide 30 mmol/L (22-30); Chloride 105 mmol/L (98-107); Estimated Glomerular Filt Rate 34; Glucose 87 mg/dL (65-110); Lactate Dehydrogenase 182 U/L (120-246); Potassium 3.4 mmol/L (3.4-5.0); Sodium 141 mmol/L (137-145)
[2022-11-27 20:36] LABS: Iron 55 ug/dL (37-170)
[2022-11-27 20:46] LABS: Percent Iron Saturation 27 % (20-50)
[2022-11-27 21:06] LABS: Folic Acid > 20.0 ng/mL (2.76->20); Vitamin B12 > 1000.0 pg/mL (239-931)
[2022-11-30 11:04] LABS: Erythropoietin (EPO) 15.8 mIU/mL (2.6-18.5)
[2022-12-01 13:01] LABS: Methylmalonic Acid 258 nmol/L (87-318)
[2022-12-02 20:33] LABS: Soluble Transferrin Receptor 0.64 mg/L (0.76-1.76)
== END 2022-11-27 14:12 | disposition home or self-care (01) ==
LOC: ANHLAB 14:13
PROVIDERS: PCP Internal Medicine; Visit Provider Internal Medicine Hematology & Oncology
DX: D64.9 Anemia, unspecified (principal)
CPT/HCPCS: 36415; 80053; 82607; 82668; 82728; 82746; 83540; 83550; 83615; 83921; 84238; 85025

== ENCOUNTER 2023-08-11 09:58 | Outpatient (CLI) | payer MEDICARE, SELFPAY ==
--- NOTE | ~2023-08-11 | CT_ITS ---
EXAMINATION:CT chest high resolution wo me DATE: 08/11/2023 10:23 INDICATION: Interstitial lung disease. TECHNIQUE: Computed tomography (CT) of the chest was performed without intravenous contrast. Automate d exposure control and iterative reconstruction technique were employed. The dose-length product (DLP ) was 151.32 mGy-cm. COMPARISON: Chest CT 07/11/2022 FINDINGS: There is widespread peripheral septal thickening in the lungs. There is mosaic attenuation in the lungs with an inferior predominance. There is mild bronchiectasis in the inferior lungs. No ho neycombing. No pleural effusion. Cardiomegaly is noted. There are coronary artery calcifications. No pericardial effusion. The central pulmonary is enlarged, consistent with pulmonary arterial hypertens ion. There is mild mediastinal lymphadenopathy, likely reactive. There is moderate thoracic spondylos is. IMPRESSION: 1. Chronic interstitial lung disease in a pattern of nonspecific interstitial pneumonia (NSIP) versus chronic hypersensitivity pneumonitis, stable from 07/11/22. Reviewed, dictated and finalized at location A. IMPRESSION: 1. Chronic interstitial lung disease in a pattern of nonspecific interstitial p neumonia (NSIP) versus chronic hypersensitivity pneumonitis, stable from 07/11/22 .
[2023-08-11 11:02] LABS: Base Excess ABG -1.3 mEq/l (+/-2.0); Carboxyhemoglobin 0.3 % THb (0-2.0); Fractional Inspired Oxygen 21 %; Methemoglobin ABG 0.1 %THb (0-1.5); Oxygen Content ABG 15.7 %vol (16.0-22.0); PO2 ABG 73.4 mmHg (80.0-100.0); Reduced Hemoglobin 6.6 %THb (0-5.0); pH ABG 7.411 (7.350-7.450)
[2023-08-11 11:04] LABS: Device ROOM AIR; Modified Allen's Test Pass
--- NOTE | 2023-08-11 16:28 | WPDSIXMINUTE ---
Six Minute Walk Procedure Procedure Performed Pulmonary Stress Test (6 min walk) Six Minute Walk Six Minute Walk: This is a 6 minute walk test. The test was performed and interpreted in accordance with the 2014 ERS/ATS task force guidelines. Findings:? The patient's resting room air oxygen saturation measured by pulse oximetry was 97% and heart rate was 66 bpm.? Patient ambulated for 335 meters and oxygen saturation remained 95 to 97%.? Heart rate at the end of the study was 90 bpm. The patient did not qualify for supplemental oxygen at rest or with ambulation. There are no prior studies for comparison.
--- NOTE | 2023-08-11 16:29 | P.PCNPFT_ITS ---
PFT Procedure Performed PFT Procedure Performed Spirometry with Pre/Post Bronchodilator Plethysmography (Lung Vol) Diffusing Cap (DLCO) Flow Vol Loop PFT Interpretation This is a pulmonary function test with pre and post-bronchodilator spirometry, plethysmography, diffusing capacity and rest room air arterial blood gas.? The test was performed and results interpreted in accordance with the 2019 and 2005 ATS/ERS Task Force guidelines respectively using the Global Lung Function Initiative-2012 reference equations. Patient demonstrated good effort and cooperation. Reproducibility criteria were met. The quality of the pre bronchodilator spirometry maneuver was Grade A and post bronchodilator spirometry maneuver was Grade B. Findings: Spirometry: the contour the inspiratory and expiratory flow tracing are normal.? The pre bronchodilator FVC is 2.10 L, 73% predicted.? The pre bronchodilator FEV1 is 1.50 L, 68% predicted.? The pre bronchodilator FEV1: FVC ratio 71%.? The post bronchodilator FVC is 2.03 L, representing a 4% decrease.? The post bronchodilator FEV1 is 1.44 L, representing a 4% decrease.? The post bronchodilator FEV1:? FVC ratio 71%.? Plethysmography:? The total lung capacity is 4.03 L, 75% predicted.? The functional residual capacity is 2.80 L, 94% predicted.? The residual volume is 1.78 L, 74% predicted.? Diffusing capacity:? The diffusing capacity unadjusted for hemoglobin and carboxyhemoglobin is 7.50, 36% predicted.? The diffusing capacity adjusted for alveolar volume is 2.76, 67% predicted. ? In comparison to PFTs from [place] on 01/08/2022 the pre bronchodilator FVC is unchanged from 2.25 L to 2.10 L.? The pre bronchodilator FEV1 is decreased from 1.79 L to 1.50 L.? The total lung capacity is unchanged from 3.67 L to 4.03 L.? The functional residual capacity is unchanged from 2.79 L to 2.80 L.? The residual volume is increased from 1.34 L to 1.78 L.? The diffusing capacity unadjusted for hemoglobin and carboxyhemoglobin is unchanged from 8.57 to 7.50.? The diffusing capacity adjusted for alveolar volume is unchanged from 2.74 to 2.76 ?rest room arterial blood gas:? PH 7.41, PaCO2 37, PaO2 73. Impression: There is a moderate restrictive ventilatory abnormality. The spirometry is normal without evidence of an obstructive abnormality. There is no significant improvement after inhaling a single dose of albuterol. The diffusing capacity unadjusted for hemoglobin and carboxyhemoglobin is severely decreased and? remains mildly decreased when adjusted for alveolar volume. ? The rest room air arterial blood gas demonstrates normal pH, normal PaCO2, and a PaO2 above the lower limit of normal. In comparison to previous pulmonary function test from [place] there has been a greater than anticipated time dependent decrease in the FEV1.? There has been a greater than anticipated time dependent increase in the residual volume with no significant change in the FVC, total lung capacity, functional residual capacity or diffusing capacity.
== END 2023-08-11 09:59 | disposition home or self-care (01) ==
PROVIDERS: Visit Provider Internal Medicine Pulmonary Disease
DX: J84.9 Interstitial pulmonary disease, unspecified (principal); M34.1 CR(E)ST syndrome
CPT/HCPCS: 36600; 71250; 82375; 82805; 83050; 94060; 94618; 94726; 94729

== ENCOUNTER 2024-01-15 07:07 | Outpatient (RCR) | payer MEDICARE, SELFPAY ==
[2024-01-15] VITALS (7 sets, daily range): BP systolic 133–153; BP diastolic 49–66; PULSE 60–68; RESP 14–16; TEMP 35.9–36.4; O2SAT 97–99
[2024-01-15 07:47] LABS: Hematocrit 26.5 % (37.0-47.0); Hemoglobin 8.2 g/dL (12.0-15.0)
[2024-01-15] MEDS: SODIUM CHLORIDE 0.9% IV 250 ML 30 ML IV CONT (09:22)
[2024-01-15] MEDS: diphenhydrAMINE HCl CAP 25 MG CAPSULE PO (09:22)
[2024-01-15] MEDS: ACETAMINOPHEN 325 MG TABLET 650 MG PO (09:22)
== END 2024-04-14 23:59 | disposition home or self-care (01) ==
LOC: ANHCPCTRAN 07:07
PROVIDERS: PCP Internal Medicine; Visit Provider Internal Medicine Hematology & Oncology
DX: D64.9 Anemia, unspecified (principal)
CPT/HCPCS: 36415; 36430; 85014; 85018; 86850; 86900; 86901; 86923; A9270; J7050; P9016

== ENCOUNTER 2024-01-20 09:19 | Outpatient (RCR) | payer MEDICARE, SELFPAY ==
[2022-12-19 10:44] LABS: Basophils Absolute Auto 0.1 K/mm3 (0.0-0.1); Basophils Percent Auto 1.3 % (0.2-1.2); Eosinophils Absolute Auto 1.6 K/mm3 (0-0.3); Eosinophils Percent Auto 17.2 % (0-4.4); Hematocrit 36.1 % (37.0-47.0); Hemoglobin 11.2 g/dL (12.0-15.0); Immature Granulocyte Absolute 0.04 K/mm3 (0.00-0.031); Immature Granulocyte Percent A 0.4 % (0-0.5); Lymphocytes Absolute Auto 2.86 K/mm3 (0.9-3.2); Lymphocytes Percent Auto 31.8 % (18.3-44.2); Mean Corpuscular Hemoglobin 30.6 pg (26-34); Mean Corpuscular Volume 98.6 fl (80-100); Monocytes Absolute Auto 0.9 K/mm3 (0.1-0.6); Monocytes Percent Auto 9.4 % (2.6-8.5); Neutrophils Absolute Auto 3.6 K/mm3 (1.3-6.7); Neutrophils Percent Auto 39.9 % (45.5-73.1); Platelet Count Result 292 k/mm3 (150-375); Red Blood Count 3.66 M/mm3 (4.2-5.4); Red Cell Distribution Width 13.7 % (11.5-14.5)
--- NOTE | 2022-12-19 10:58 | PC.NURSE ---
Patient's treatment cancelled due to hemoglobulin of 11.2.
[2023-01-30 11:35] LABS: Basophils Absolute Auto 0.1 K/mm3 (0.0-0.1); Basophils Percent Auto 1.1 % (0.2-1.2); Eosinophils Absolute Auto 0.6 K/mm3 (0-0.3); Eosinophils Percent Auto 8.1 % (0-4.4); Hematocrit 33.3 % (37.0-47.0); Hemoglobin 10.2 g/dL (12.0-15.0); Immature Granulocyte Absolute 0.03 K/mm3 (0.00-0.031); Immature Granulocyte Percent A 0.4 % (0-0.5); Lymphocytes Absolute Auto 2.71 K/mm3 (0.9-3.2); Lymphocytes Percent Auto 38.7 % (18.3-44.2); Mean Corpuscular HGB Conc 30.6 g/dl (32-36); Mean Corpuscular Hemoglobin 30.8 pg (26-34); Mean Corpuscular Volume 100.6 fl (80-100); Mean Platelet Volume 9.7 fl (7.4-10.4); Monocytes Absolute Auto 0.9 K/mm3 (0.1-0.6); Monocytes Percent Auto 12.9 % (2.6-8.5); Neutrophils Absolute Auto 2.7 K/mm3 (1.3-6.7); Neutrophils Percent Auto 38.8 % (45.5-73.1); Platelet Count Result 233 k/mm3 (150-375); Red Blood Count 3.31 M/mm3 (4.2-5.4); Red Cell Distribution Width 16.3 % (11.5-14.5)
--- NOTE | 2023-01-30 11:47 | PC.NURSE ---
Treatment canceled due to hemoglobin above 10.
[2023-02-11 10:09] LABS: Basophils Absolute Auto 0.1 K/mm3 (0.0-0.1); Basophils Percent Auto 1.3 % (0.2-1.2); Eosinophils Absolute Auto 0.2 K/mm3 (0-0.3); Eosinophils Percent Auto 3.5 % (0-4.4); Hematocrit 34.9 % (37.0-47.0); Hemoglobin 10.8 g/dL (12.0-15.0); Immature Granulocyte Absolute 0.01 K/mm3 (0.00-0.031); Immature Granulocyte Percent A 0.1 % (0-0.5); Lymphocytes Absolute Auto 2.34 K/mm3 (0.9-3.2); Lymphocytes Percent Auto 34.5 % (18.3-44.2); Mean Corpuscular HGB Conc 30.9 g/dl (32-36); Mean Corpuscular Hemoglobin 30.9 pg (26-34); Monocytes Absolute Auto 0.6 K/mm3 (0.1-0.6); Monocytes Percent Auto 9.3 % (2.6-8.5); Neutrophils Absolute Auto 3.5 K/mm3 (1.3-6.7); Neutrophils Percent Auto 51.3 % (45.5-73.1); Platelet Count Result 301 k/mm3 (150-375); Red Blood Count 3.49 M/mm3 (4.2-5.4); Red Cell Distribution Width 15.9 % (11.5-14.5); White Blood Count 6.8 K/mm3 (4.5-10.0)
[2023-02-11 12:47] LABS: Iron 93 ug/dL (37-170)
[2023-02-11 12:48] LABS: Alanine Aminotransferase 20 U/L (6-35); Albumin Level 3.9 g/dL (3.5-5.1); Alkaline Phosphatase 102 U/L (38-126); Anion Gap 9 mmol/L (8-16); Aspartate Amino Transferase 30 U/L (14-36); Bilirubin,Total 0.7 mg/dL (0.2-1.3); Blood Urea Nitrogen 21 mg/dL (7-17); Calcium 9.6 mg/dL (8.4-10.2); Carbon Dioxide 25 mmol/L (22-30); Chloride 104 mmol/L (98-107); Estimated Glomerular Filt Rate 32; Glucose 93 mg/dL (65-110); Lactate Dehydrogenase 180 U/L (120-246); Sodium 138 mmol/L (137-145)
[2023-02-11 12:58] LABS: Percent Iron Saturation 46 % (20-50)
[2023-02-11 13:54] LABS: Folic Acid > 20.0 ng/mL (2.76->20); Vitamin B12 > 1000.0 pg/mL (239-931)
[2023-02-14 22:49] LABS: Erythropoietin (EPO) 15.2 mIU/mL (2.6-18.5); Methylmalonic Acid 204 nmol/L (87-318)
[2023-02-19 13:11] LABS: Soluble Transferrin Receptor 0.88 mg/L (0.76-1.76)
[2023-03-03 09:52] LABS: Basophils Absolute Auto 0.1 K/mm3 (0.0-0.1); Basophils Percent Auto 1.2 % (0.2-1.2); Eosinophils Absolute Auto 0.4 K/mm3 (0-0.3); Eosinophils Percent Auto 6.5 % (0-4.4); Hemoglobin 9.7 g/dL (12.0-15.0); Immature Granulocyte Absolute 0.02 K/mm3 (0.00-0.031); Immature Granulocyte Percent A 0.3 % (0-0.5); Lymphocytes Absolute Auto 2.28 K/mm3 (0.9-3.2); Lymphocytes Percent Auto 35.5 % (18.3-44.2); Mean Corpuscular HGB Conc 30.3 g/dl (32-36); Mean Corpuscular Hemoglobin 31.3 pg (26-34); Mean Corpuscular Volume 103.2 fl (80-100); Mean Platelet Volume 9.7 fl (7.4-10.4); Monocytes Absolute Auto 0.8 K/mm3 (0.1-0.6); Monocytes Percent Auto 12.3 % (2.6-8.5); Neutrophils Absolute Auto 2.8 K/mm3 (1.3-6.7); Neutrophils Percent Auto 44.2 % (45.5-73.1); Platelet Count Result 214 k/mm3 (150-375); Red Cell Distribution Width 15.9 % (11.5-14.5); White Blood Count 6.4 K/mm3 (4.5-10.0)
--- NOTE | 2023-03-03 09:52 | PC.NURSE ---
Injection not needed per protocol
[2023-03-03 10:09] VITALS: BP 145/50; PULSE 66; TEMP 36.3; O2SAT 95
[2023-03-03] MEDS: EPOETIN ALFA-EPBX 20,000 UNITS/ML VIAL 20000 UNITS SUB-Q (10:19)
[2023-03-17 09:46] LABS: Basophils Absolute Auto 0.1 K/mm3 (0.0-0.1); Basophils Percent Auto 1.7 % (0.2-1.2); Eosinophils Absolute Auto 0.4 K/mm3 (0-0.3); Eosinophils Percent Auto 5.2 % (0-4.4); Hematocrit 34.5 % (37.0-47.0); Hemoglobin 10.7 g/dL (12.0-15.0); Immature Granulocyte Absolute 0.03 K/mm3 (0.00-0.031); Immature Granulocyte Percent A 0.4 % (0-0.5); Lymphocytes Absolute Auto 2.96 K/mm3 (0.9-3.2); Lymphocytes Percent Auto 41.9 % (18.3-44.2); Mean Corpuscular Volume 103.3 fl (80-100); Mean Platelet Volume 8.8 fl (7.4-10.4); Monocytes Absolute Auto 0.8 K/mm3 (0.1-0.6); Monocytes Percent Auto 11.3 % (2.6-8.5); Neutrophils Absolute Auto 2.8 K/mm3 (1.3-6.7); Neutrophils Percent Auto 39.5 % (45.5-73.1); Platelet Count Result 246 k/mm3 (150-375); Red Blood Count 3.34 M/mm3 (4.2-5.4); Red Cell Distribution Width 15.4 % (11.5-14.5); White Blood Count 7.1 K/mm3 (4.5-10.0)
--- NOTE | 2023-03-17 09:50 | PC.NURSE ---
Patient with hemoglobulin of 10.7, treatment cancelled.
[2023-03-31 09:26] LABS: Basophils Absolute Auto 0.1 K/mm3 (0.0-0.1); Basophils Percent Auto 1.2 % (0.2-1.2); Eosinophils Absolute Auto 0.4 K/mm3 (0-0.3); Hematocrit 33.3 % (37.0-47.0); Hemoglobin 10.3 g/dL (12.0-15.0); Immature Granulocyte Absolute 0.01 K/mm3 (0.00-0.031); Immature Granulocyte Percent A 0.2 % (0-0.5); Lymphocytes Absolute Auto 3.01 K/mm3 (0.9-3.2); Mean Corpuscular HGB Conc 30.9 g/dl (32-36); Mean Corpuscular Hemoglobin 31.4 pg (26-34); Mean Corpuscular Volume 101.5 fl (80-100); Mean Platelet Volume 9.1 fl (7.4-10.4); Monocytes Absolute Auto 0.8 K/mm3 (0.1-0.6); Monocytes Percent Auto 11.9 % (2.6-8.5); Neutrophils Absolute Auto 2.3 K/mm3 (1.3-6.7); Neutrophils Percent Auto 34.7 % (45.5-73.1); Platelet Count Result 223 k/mm3 (150-375); Red Blood Count 3.28 M/mm3 (4.2-5.4); Red Cell Distribution Width 14.4 % (11.5-14.5); White Blood Count 6.5 K/mm3 (4.5-10.0)
--- NOTE | 2023-03-31 09:33 | PC.NURSE ---
Treatment cancelled, hemoglobulin 10.3
[2023-04-14 08:39] LABS: Basophils Absolute Auto 0.1 K/mm3 (0.0-0.1); Basophils Percent Auto 0.8 % (0.2-1.2); Eosinophils Absolute Auto 0.4 K/mm3 (0-0.3); Eosinophils Percent Auto 4.6 % (0-4.4); Hematocrit 33.4 % (37.0-47.0); Hemoglobin 10.2 g/dL (12.0-15.0); Immature Granulocyte Absolute 0.02 K/mm3 (0.00-0.031); Immature Granulocyte Percent A 0.3 % (0-0.5); Lymphocytes Absolute Auto 2.86 K/mm3 (0.9-3.2); Lymphocytes Percent Auto 37.4 % (18.3-44.2); Mean Corpuscular HGB Conc 30.5 g/dl (32-36); Mean Corpuscular Hemoglobin 31.5 pg (26-34); Mean Corpuscular Volume 103.1 fl (80-100); Mean Platelet Volume 9.2 fl (7.4-10.4); Monocytes Absolute Auto 0.8 K/mm3 (0.1-0.6); Monocytes Percent Auto 9.9 % (2.6-8.5); Neutrophils Absolute Auto 3.6 K/mm3 (1.3-6.7); Platelet Count Result 212 k/mm3 (150-375); Red Blood Count 3.24 M/mm3 (4.2-5.4); Red Cell Distribution Width 14.4 % (11.5-14.5); White Blood Count 7.7 K/mm3 (4.5-10.0)
--- NOTE | 2023-04-14 08:44 | PC.NURSE ---
Retacrit injection cancelled, hemoglobulin 10.2
[2023-04-28 09:19] LABS: Basophils Absolute Auto 0.1 K/mm3 (0.0-0.1); Basophils Percent Auto 0.9 % (0.2-1.2); Eosinophils Absolute Auto 0.4 K/mm3 (0-0.3); Eosinophils Percent Auto 4.6 % (0-4.4); Hematocrit 35.2 % (37.0-47.0); Immature Granulocyte Absolute 0.03 K/mm3 (0.00-0.031); Immature Granulocyte Percent A 0.3 % (0-0.5); Lymphocytes Absolute Auto 2.67 K/mm3 (0.9-3.2); Lymphocytes Percent Auto 29.3 % (18.3-44.2); Mean Corpuscular HGB Conc 31.3 g/dl (32-36); Mean Corpuscular Hemoglobin 31.9 pg (26-34); Mean Platelet Volume 9.1 fl (7.4-10.4); Monocytes Absolute Auto 0.8 K/mm3 (0.1-0.6); Monocytes Percent Auto 8.9 % (2.6-8.5); Neutrophils Absolute Auto 5.1 K/mm3 (1.3-6.7); Platelet Count Result 240 k/mm3 (150-375); Red Blood Count 3.45 M/mm3 (4.2-5.4); Red Cell Distribution Width 14.3 % (11.5-14.5); White Blood Count 9.1 K/mm3 (4.5-10.0)
--- NOTE | 2023-04-28 09:30 | PC.NURSE ---
Treatment cancelled, hemoglobulin 11.
[2023-05-12 10:21] LABS: Basophils Absolute Auto 0.1 K/mm3 (0.0-0.1); Basophils Percent Auto 0.9 % (0.2-1.2); Eosinophils Absolute Auto 0.4 K/mm3 (0-0.3); Eosinophils Percent Auto 4.4 % (0-4.4); Hematocrit 35.6 % (37.0-47.0); Hemoglobin 11.1 g/dL (12.0-15.0); Immature Granulocyte Absolute 0.03 K/mm3 (0.00-0.031); Immature Granulocyte Percent A 0.3 % (0-0.5); Lymphocytes Absolute Auto 3.56 K/mm3 (0.9-3.2); Mean Corpuscular HGB Conc 31.2 g/dl (32-36); Mean Corpuscular Hemoglobin 31.9 pg (26-34); Mean Corpuscular Volume 102.3 fl (80-100); Mean Platelet Volume 9.5 fl (7.4-10.4); Monocytes Absolute Auto 0.8 K/mm3 (0.1-0.6); Monocytes Percent Auto 9.3 % (2.6-8.5); Neutrophils Percent Auto 45.1 % (45.5-73.1); Platelet Count Result 268 k/mm3 (150-375); Red Blood Count 3.48 M/mm3 (4.2-5.4); Red Cell Distribution Width 14.4 % (11.5-14.5); White Blood Count 8.9 K/mm3 (4.5-10.0)
--- NOTE | 2023-05-12 10:27 | PC.NURSE ---
injection not needed per protocol
[2023-05-26 10:29] LABS: Basophils Absolute Auto 0.1 K/mm3 (0.0-0.1); Basophils Percent Auto 0.9 % (0.2-1.2); Eosinophils Absolute Auto 0.4 K/mm3 (0-0.3); Eosinophils Percent Auto 3.7 % (0-4.4); Hematocrit 35.7 % (37.0-47.0); Hemoglobin 11.2 g/dL (12.0-15.0); Immature Granulocyte Absolute 0.04 K/mm3 (0.00-0.031); Immature Granulocyte Percent A 0.4 % (0-0.5); Lymphocytes Absolute Auto 3.18 K/mm3 (0.9-3.2); Lymphocytes Percent Auto 31.2 % (18.3-44.2); Mean Corpuscular HGB Conc 31.4 g/dl (32-36); Mean Corpuscular Hemoglobin 31.6 pg (26-34); Mean Corpuscular Volume 100.8 fl (80-100); Mean Platelet Volume 9.6 fl (7.4-10.4); Monocytes Absolute Auto 0.9 K/mm3 (0.1-0.6); Monocytes Percent Auto 9.1 % (2.6-8.5); Neutrophils Absolute Auto 5.6 K/mm3 (1.3-6.7); Neutrophils Percent Auto 54.7 % (45.5-73.1); Platelet Count Result 250 k/mm3 (150-375); Red Blood Count 3.54 M/mm3 (4.2-5.4); Red Cell Distribution Width 14.2 % (11.5-14.5); White Blood Count 10.2 K/mm3 (4.5-10.0)
--- NOTE | 2023-05-26 10:40 | PC.NURSE ---
Hemoglobulin 11.2 , injection held.
[2023-06-09 09:08] LABS: Basophils Absolute Auto 0.1 K/mm3 (0.0-0.1); Basophils Percent Auto 1.1 % (0.2-1.2); Eosinophils Absolute Auto 0.5 K/mm3 (0-0.3); Eosinophils Percent Auto 4.8 % (0-4.4); Hemoglobin 11.4 g/dL (12.0-15.0); Immature Granulocyte Absolute 0.04 K/mm3 (0.00-0.031); Immature Granulocyte Percent A 0.4 % (0-0.5); Lymphocytes Absolute Auto 2.66 K/mm3 (0.9-3.2); Lymphocytes Percent Auto 28.2 % (18.3-44.2); Mean Corpuscular HGB Conc 30.8 g/dl (32-36); Mean Corpuscular Hemoglobin 31.5 pg (26-34); Mean Corpuscular Volume 102.2 fl (80-100); Mean Platelet Volume 9.7 fl (7.4-10.4); Monocytes Absolute Auto 0.8 K/mm3 (0.1-0.6); Monocytes Percent Auto 8.4 % (2.6-8.5); Neutrophils Absolute Auto 5.4 K/mm3 (1.3-6.7); Neutrophils Percent Auto 57.1 % (45.5-73.1); Platelet Count Result 249 k/mm3 (150-375); Red Blood Count 3.62 M/mm3 (4.2-5.4); Red Cell Distribution Width 14.6 % (11.5-14.5); White Blood Count 9.4 K/mm3 (4.5-10.0)
[2023-06-09 09:11] LABS: Blood Urea Nitrogen 18 mg/dL (8-26); Carbon Dioxide 28 mmol/L (22-30); Chloride 103 mmol/L (98-109); Estimated Glomerular Filt Rate 28; Glucose 92 mg/dL (70-105); Ionized Calcium (POC) 1.23 mmol/L (1.11-1.31); Potassium 3.8 mmol/L (3.5-4.9); Sodium 141 mmol/L (138-146)
--- NOTE | 2023-06-09 09:18 | PC.NURSE ---
Patient's appointment cancelled, hemoglobulin 11.4
[2023-06-09 10:14] LABS: Iron 103 ug/dL (37-170)
[2023-06-09 10:27] LABS: Percent Iron Saturation 47 % (20-50)
[2023-06-09 11:26] LABS: Folic Acid > 20.0 ng/mL (2.76->20); Vitamin B12 > 1000.0 pg/mL (239-931)
[2023-09-02 09:22] LABS: Basophils Absolute Auto 0.1 K/mm3 (0.0-0.1); Basophils Percent Auto 1.1 % (0.2-1.2); Eosinophils Absolute Auto 0.5 K/mm3 (0-0.3); Eosinophils Percent Auto 8.5 % (0-4.4); Hematocrit 34.5 % (37.0-47.0); Hemoglobin 10.7 g/dL (12.0-15.0); Immature Granulocyte Absolute 0.01 K/mm3 (0.00-0.031); Immature Granulocyte Percent A 0.2 % (0-0.5); Lymphocytes Absolute Auto 2.37 K/mm3 (0.9-3.2); Lymphocytes Percent Auto 37.9 % (18.3-44.2); Mean Corpuscular Hemoglobin 32.6 pg (26-34); Mean Corpuscular Volume 105.2 fl (80-100); Monocytes Absolute Auto 0.6 K/mm3 (0.1-0.6); Monocytes Percent Auto 10.1 % (2.6-8.5); Neutrophils Absolute Auto 2.6 K/mm3 (1.3-6.7); Neutrophils Percent Auto 42.2 % (45.5-73.1); Platelet Count Result 193 k/mm3 (150-375); Red Blood Count 3.28 M/mm3 (4.2-5.4); Red Cell Distribution Width 13.2 % (11.5-14.5); White Blood Count 6.3 K/mm3 (4.5-10.0)
[2023-09-02 10:42] LABS: Anion Gap 9 mmol/L (4-12); Blood Urea Nitrogen 23 mg/dL (7-17); Calcium 9.8 mg/dL (8.4-10.2); Carbon Dioxide 24 mmol/L (22-30); Chloride 110 mmol/L (98-107); Estimated Glomerular Filt Rate 27; Glucose 89 mg/dL (65-110); Potassium 4.3 mmol/L (3.4-5.0); Sodium 143 mmol/L (137-145)
[2023-09-02 11:51] LABS: Folic Acid > 20.0 ng/mL (2.76->20)
[2024-01-13 09:59] LABS: Basophils Absolute Auto 0.1 K/mm3 (0.0-0.1); Basophils Percent Auto 0.9 % (0.2-1.2); Eosinophils Absolute Auto 0.6 K/mm3 (0-0.3); Eosinophils Percent Auto 9.3 % (0-4.4); Hematocrit 25.5 % (37.0-47.0); Hemoglobin 7.8 g/dL (12.0-15.0); Immature Granulocyte Absolute 0.01 K/mm3 (0.00-0.031); Immature Granulocyte Percent A 0.1 % (0-0.5); Lymphocytes Absolute Auto 1.83 K/mm3 (0.9-3.2); Lymphocytes Percent Auto 27.1 % (18.3-44.2); Mean Corpuscular HGB Conc 30.6 g/dl (32-36); Mean Corpuscular Hemoglobin 33.2 pg (26-34); Mean Corpuscular Volume 108.5 fl (80-100); Mean Platelet Volume 8.6 fl (7.4-10.4); Monocytes Absolute Auto 0.7 K/mm3 (0.1-0.6); Monocytes Percent Auto 9.8 % (2.6-8.5); Neutrophils Absolute Auto 3.6 K/mm3 (1.3-6.7); Neutrophils Percent Auto 52.8 % (45.5-73.1); Platelet Count Result 227 k/mm3 (150-375); Red Blood Count 2.35 M/mm3 (4.2-5.4); Red Cell Distribution Width 13.8 % (11.5-14.5); White Blood Count 6.8 K/mm3 (4.5-10.0)
[2024-01-13 10:45] LABS: Iron 60 ug/dL (37-170)
[2024-01-13 10:46] LABS: Anion Gap 10 mmol/L (4-12); Blood Urea Nitrogen 24 mg/dL (7-17); Calcium 9.3 mg/dL (8.4-10.2); Carbon Dioxide 27 mmol/L (22-30); Chloride 103 mmol/L (98-107); Estimated Glomerular Filt Rate 26; Glucose 102 mg/dL (65-110); Sodium 140 mmol/L (137-145)
[2024-01-13 10:56] LABS: Percent Iron Saturation 23 % (20-50)
[2024-01-20 09:32] LABS: Basophils Absolute Auto 0.1 K/mm3 (0.0-0.1); Basophils Percent Auto 1.6 % (0.2-1.2); Eosinophils Absolute Auto 0.7 K/mm3 (0-0.3); Eosinophils Percent Auto 11.8 % (0-4.4); Hematocrit 35.2 % (37.0-47.0); Hemoglobin 10.6 g/dL (12.0-15.0); Immature Granulocyte Absolute 0.02 K/mm3 (0.00-0.031); Immature Granulocyte Percent A 0.3 % (0-0.5); Lymphocytes Absolute Auto 1.74 K/mm3 (0.9-3.2); Lymphocytes Percent Auto 27.8 % (18.3-44.2); Mean Corpuscular HGB Conc 30.1 g/dl (32-36); Mean Corpuscular Hemoglobin 32.6 pg (26-34); Mean Corpuscular Volume 108.3 fl (80-100); Mean Platelet Volume 9.9 fl (7.4-10.4); Monocytes Absolute Auto 0.8 K/mm3 (0.1-0.6); Monocytes Percent Auto 13.3 % (2.6-8.5); Neutrophils Absolute Auto 2.8 K/mm3 (1.3-6.7); Neutrophils Percent Auto 45.2 % (45.5-73.1); Platelet Count Result 218 k/mm3 (150-375); Red Blood Count 3.25 M/mm3 (4.2-5.4); Red Cell Distribution Width 13.5 % (11.5-14.5); White Blood Count 6.3 K/mm3 (4.5-10.0)
[2024-01-20 12:42] LABS: Iron 84 ug/dL (37-170)
[2024-01-20 12:51] LABS: Percent Iron Saturation 34 % (20-50)
[2024-01-20 12:55] LABS: Anion Gap 6 mmol/L (4-12); Blood Urea Nitrogen 26 mg/dL (7-17); Calcium 9.4 mg/dL (8.4-10.2); Carbon Dioxide 29 mmol/L (22-30); Chloride 103 mmol/L (98-107); Estimated Glomerular Filt Rate 26; Glucose 96 mg/dL (65-110); Potassium 4.7 mmol/L (3.4-5.0); Sodium 138 mmol/L (137-145)
== END 2024-01-28 12:16 ==
LOC: AMCINF 09:19
PROVIDERS: Visit Provider Internal Medicine Hematology & Oncology
DX: N18.30 Chronic kidney disease, stage 3 unspecified (principal); D63.1 Anemia in chronic kidney disease; I12.9 Hypertensive chronic kidney disease with stage 1 through stage 4 chronic kidney disease, or unspecified chronic kidney disease; I48.91 Unspecified atrial fibrillation; E78.5 Hyperlipidemia, unspecified; E83.10 Disorder of iron metabolism, unspecified; M19.90 Unspecified osteoarthritis, unspecified site; K21.00 Gastro-esophageal reflux disease with esophagitis, without bleeding
CPT/HCPCS: 36415; 80047; 80048; 80053; 81256; 82607; 82668; 82728; 82746; 83540; 83550; 83615; 83921; 84238; 85025; 96372; Q5106

== ENCOUNTER 2024-02-18 07:39 | Outpatient (CLI) | payer MEDICARE, SELFPAY ==
--- NOTE | 2024-02-18 14:45 | WPDPFTINT ---
PFT Procedure Performed PFT Procedure Performed Spirometry with Pre/Post Bronchodilator Plethysmography (Lung Vol) Diffusing Cap (DLCO) Flow Vol Loop PFT Interpretation Lung volumes were measured with the body plethysmography method. The diminished lung volumes are indicative of restrictive respiratory disease. Spirometry showed diminished expiratory flow rates and a normal FEV1 to FVC ratio 73%, also consistent with restrictive respiratory disease. Following administration of a bronchodilator there was no significant increase in expiratory flow rates. Lung diffusion capacity severely reduced at 26% predicted. The diminished lung diffusion capacity in combination with a low alveolar volume and low DLCO/VA ratio indicates loss of alveolar capillary structure as seen in emphysema or interstitial lung disease. In comparison to previous study in August of 2023, the post bronchodilator FVC is essentially unchanged whereas the FEV1 is now greater by approximately 0.25 L. Total lung capacity and lung diffusion capacity have been essentially unchanged. Impression: Mild restrictive respiratory disease. Severely reduced lung diffusion capacity. Unchanged since 09/01.
== END 2024-02-18 07:40 | disposition home or self-care (01) ==
LOC: ANHPFT 07:40
PROVIDERS: PCP Internal Medicine; Visit Provider Internal Medicine Pulmonary Disease
DX: J98.4 Other disorders of lung (principal); M34.1 CR(E)ST syndrome
CPT/HCPCS: 94060; 94726; 94729

== ENCOUNTER 2024-03-09 09:40 | Outpatient (CLI) | payer MEDICARE, SELFPAY ==
--- NOTE | ~2024-03-09 | CT_ITS ---
EXAMINATION:CT diagnostic chest wo con DATE: 03/09/2024 09:56 INDICATION: Interstitial pulmonary disease, unspecified. TECHNIQUE: Computed tomography (CT) of the chest was performed without intravenous contrast. Automate d exposure control and iterative reconstruction technique were employed. The dose-length product (DLP ) was 144.61 mGy-cm. COMPARISON: Chest CT 08/11/2023 FINDINGS: There is mild scarring at the lung apices. There is a 3 mm nodule in left upper lobe, likel y benign. There is mosaic attenuation in the lungs, likely small airways disease. There is septal thi ckening in the lungs with a peripheral and inferior predominance. There is mild bronchiectasis in the inferior lungs. No honeycombing. No pleural effusion. Cardiomegaly is noted. There is a closure ramesh ce at left atrial appendage. There are coronary artery calcifications. No pericardial effusion. There are changes of cholecystectomy. There is moderate thoracic spondylosis. IMPRESSION: 1. Chronic interstitial lung disease in a pattern of nonspecific interstitial pneumonia (NSIP), stabl e from 08/11/2023. Reviewed, dictated and finalized at location B. IMPRESSION: 1. Chronic interstitial lung disease in a pattern of nonspecific interstitial p neumonia (NSIP), stable from 08/11/2023.
--- NOTE | 2024-03-09 13:07 | WPDSIXMINUTE ---
Six Minute Walk Procedure Procedure Performed Pulmonary Stress Test (6 min walk) Six Minute Walk Six Minute Walk: This is a 6 minute walk test. The test was performed and interpreted in accordance with the 2014 ERS/ATS task force guidelines. Findings: The patient's resting room air oxygen saturation measured by pulse oximetry was 96%, the heart rate was 69 bpm, and the modified Agustín dyspnea score was 0.5. Patient ambulated for 183 meters and oxygen saturation remained 93 to 95%. At the end of the study the heart rate was 101 bpm and the modified Augstín dyspnea score was 1. The patient did not qualify for supplemental oxygen at rest or with ambulation. Compared with 6 minute walk test on 08/11/2023, the walk distance has decreased from 335 m to 183 m and the mario saturation has decreased from 95% to 93%. Agustín dyspnea score previously was 3 at baseline and the end of the test.
== END 2024-03-09 09:41 | disposition home or self-care (01) ==
PROVIDERS: PCP Internal Medicine; Visit Provider Internal Medicine Pulmonary Disease
DX: J84.9 Interstitial pulmonary disease, unspecified (principal)
CPT/HCPCS: 71250; 94618

== ENCOUNTER 2024-03-18 08:46 | Outpatient (CLI) | payer MEDICARE, SELFPAY ==
[2024-03-18 09:06] LABS: Basophils Absolute Auto 0.1 K/mm3 (0.0-0.1); Basophils Percent Auto 0.9 % (0.2-1.2); Eosinophils Percent Auto 12.6 % (0-4.4); Hematocrit 21.5 % (37.0-47.0); Immature Granulocyte Absolute 0.05 K/mm3 (0.00-0.031); Immature Granulocyte Percent A 0.7 % (0-0.5); Lymphocytes Absolute Auto 1.93 K/mm3 (0.9-3.2); Lymphocytes Percent Auto 25.6 % (18.3-44.2); Mean Corpuscular HGB Conc 30.2 g/dl (32-36); Mean Corpuscular Hemoglobin 33.3 pg (26-34); Mean Corpuscular Volume 110.3 fl (80-100); Mean Platelet Volume 9.1 fl (7.4-10.4); Monocytes Absolute Auto 0.7 K/mm3 (0.1-0.6); Neutrophils Absolute Auto 3.9 K/mm3 (1.3-6.7); Neutrophils Percent Auto 51.2 % (45.5-73.1); Platelet Count Result 241 k/mm3 (150-375); Red Blood Count 1.95 M/mm3 (4.2-5.4); Red Cell Distribution Width 14.6 % (11.5-14.5); White Blood Count 7.5 K/mm3 (4.5-10.0)
[2024-03-18 09:08] LABS: Hemoglobin 6.5 g/dL (12.0-15.0)
[2024-03-18 13:00] LABS: Iron 92 ug/dL (37-170)
[2024-03-18 13:12] LABS: Percent Iron Saturation 34 % (20-50)
[2024-03-18 13:50] LABS: Anion Gap 8 mmol/L (4-12); Blood Urea Nitrogen 24 mg/dL (7-17); Calcium 9.3 mg/dL (8.4-10.2); Carbon Dioxide 25 mmol/L (22-30); Chloride 108 mmol/L (98-107); Estimated Glomerular Filt Rate 27; Glucose 107 mg/dL (65-110); Sodium 141 mmol/L (137-145)
[2024-03-18 15:29] LABS: Folic Acid > 20.0 ng/mL (2.76->20)
== END 2024-03-18 08:47 | disposition home or self-care (01) ==
PROVIDERS: PCP Internal Medicine; Visit Provider Internal Medicine Hematology & Oncology
DX: D64.9 Anemia, unspecified (principal)
CPT/HCPCS: 36415; 80048; 82607; 82728; 82746; 83540; 83550; 85025

== ENCOUNTER 2024-03-18 10:11 | Outpatient (RCR) | payer MEDICARE, SELFPAY ==
[2024-03-18] MEDS: SODIUM CHLORIDE 0.9% IV 250 ML 30 ML IV CONT (11:17)
[2024-03-18] MEDS: ACETAMINOPHEN 325 MG TABLET 650 MG PO (11:17)
[2024-03-18] MEDS: diphenhydrAMINE HCl CAP 25 MG CAPSULE PO (11:28)
[2024-03-18 11:30] VITALS: BP 120/74; PULSE 88; RESP 17; TEMP 36.7; O2SAT 97; BMI 20.9
[2024-03-18 11:32] VITALS: BP 119/46; PULSE 89; RESP 14; TEMP 36.9; O2SAT 99
[2024-03-18 11:45] VITALS: BP 110/66; PULSE 70; RESP 19; TEMP 36.6; O2SAT 96
[2024-03-18 12:45] VITALS: BP 117/69; PULSE 78; RESP 14; TEMP 37; O2SAT 98
[2024-03-18 13:45] VITALS: BP 117/89; PULSE 74; RESP 14; TEMP 36.5; O2SAT 97
[2024-03-18 13:55] VITALS: BP 122/87; PULSE 74; RESP 19; TEMP 36.6; O2SAT 97
== END 2024-06-16 23:59 | disposition home or self-care (01) ==
LOC: ANHCPCTRAN 10:11
PROVIDERS: PCP Internal Medicine; Visit Provider Internal Medicine Hematology & Oncology
DX: D64.89 Other specified anemias (principal); N18.30 Chronic kidney disease, stage 3 unspecified
CPT/HCPCS: 36415; 36430; 80048; 82607; 82728; 82746; 83540; 83550; 85025; 86850; 86900; 86901; 86923; A9270; J7050; P9016

== ENCOUNTER 2024-04-18 13:54 | Outpatient (CLI) | payer MEDICARE, SELFPAY ==
--- NOTE | 2024-04-18 14:07 | ECHO_ITS ---
Patient Info Name: Susan Araiza Age: 73 years : 1950 Gender: Female Ht: 65 in Wt: 130 lbs BSA: 1.65 m2 HR: 80 bpm BP: 122 / 71 mmHg Heart Rhythm: Sinus Rhythm Technical Quality: Good Exam Date: 04/18/2024 2:10 PM Exam Location: Echo Lab Patient Status: Outpatient Admit Date: 04/18/2024 Staff Ordering Physician: Henry Vela MD [facility] Assisted Living: Farhana Garcia RDCS Attending Provider: Henry Vela MD Referring Physician: Dane BLEDSOE; Exam Type: CA echo doppler color flow Study Info Indications - Assess LV, RV, valves PHTN Complete two-dimensional, color flow and Doppler transthoracic echocardiogram is performed. Summary 1. Left ventricular chamber dimension is normal. 2. Left ventricular systolic function is normal, estimated at 55-60%. 3. There is moderately increased left ventricular wall thickness. 4. The left ventricular diastolic function is grade I diastolic dysfunction. 5. Right ventricular systolic function is normal. 6. Left atrial chamber dimension is severely enlarged. 7. [id number] artifact from Amulet device seen in the left atrium. 8. Right atrial chamber dimension is moderately enlarged. 9. There is moderate aortic valve stenosis with a peak velocity of 306 cm/s, mean gradient of 21 mmHg, and aortic valve area of 1.0 cm2. 10. There is mild to moderate aortic valve regurgitation. 11. There is moderate mitral valve regurgitation. 12. There is mild tricuspid valve regurgitation. 13. Estimated pulmonary arterial systolic pressure is 29 mmHg. Left Ventricle Left ventricular chamber dimension is normal. Left ventricular systolic function is normal, estimated at 55-60%. There is moderately increased left ventricular wall thickness. The left ventricular diastolic function is grade I diastolic dysfunction. Right Ventricle Right ventricular chamber dimension is normal. Right ventricular systolic function is normal. Left Atria [id number] artifact from Amulet device seen in the left atrium. Left atrial chamber dimension is severely enlarged. Right Atria Right atrial chamber dimension is moderately enlarged. Atrial Septum Intact interatrial septum visualized by color flow imaging. Aortic Valve The aortic valve is trileaflet. There is moderate aortic valve stenosis with a peak velocity of 306 cm/s, mean gradient of 21 mmHg, and aortic valve area of 1.0 cm2. There is mild to moderate aortic valve regurgitation. There is moderate aortic valve calcification. Pulmonic Valve The pulmonic valve is not well visualized. There is trace pulmonic regurgitation. Mitral Valve There is moderate mitral valve regurgitation. Tricuspid Valve There is mild tricuspid valve regurgitation. Estimated pulmonary arterial systolic pressure is 29 mmHg. Pericardium/Pleural There is no pericardial effusion. Inferior Vena Cava Normal inferior vena cava with >50% collapse upon inspiration consistent with normal right atrial pressure, 3 mmHg. Aorta The aortic root size at the sinus of Valsalva is normal. Left Ventricular Outflow Tract Name Value Normal LVOT 2D LVOT Diameter 2.0 cm LVOT Doppler LVOT Peak Gradient 3 mmHg LVOT Mean Gradient 2 mmHg LVOT VTI 19 cm LVOT VTI/AV VTI Ratio 0.3 LVOT Stroke Volume 61 ml LVOT CO 4.6 l/min LVOT CI 2.8 l/min/m2 Pulmonic Valve Name Value Normal RVOT Doppler RVOT Peak Gradient 2 mmHg PV Doppler PV Peak Gradient 5 mmHg Mitral Valve Name Value Normal MV Doppler MV Decel [place] 502 cm/s2 MV PHT 54 ms MV Area (PHT) 4.1 cm2 4.0-5.0 MV Regurgitation Doppler MR Peak Gradient 113 mmHg MV Diastolic Function MV E Peak Velocity 93 cm/s MV A Peak Velocity 65 cm/s MV E/A 1.4 MV Decel Time 186 ms MV Annular TDI MV E/e' (Septal) 19.6 <=8.0 MV E/e' (Lateral) 13.4 <=8.0 MV E/e' (Average) 16.5 Tricuspid Valve Name Value Normal TV Regurgitation Doppler TR Peak Velocity 253 cm/s TR Peak Gradient 26 mmHg Estimated PAP/RSVP RA Pressure 3 mmHg <=5 PA Systolic Pressure 29 mmHg <36 RV Systolic Pressure 29 mmHg <36 Aorta Name Value Normal Ascending Aorta Ao Root Diameter (MM) 3.1 cm Ao Root Diam Index (MM) 1.9 cm/m2 Aortic Valve Name Value Normal AV Doppler AV Peak Velocity 306 cm/s AV Peak Gradient 38 mmHg AV Mean Gradient 21 mmHg AV VTI 64 cm AV Area (Cont Eq VTI) 0.9 cm2 >=3.0 AV Area (Cont Eq Guero) 1.0 cm2 AV Regurgitation 2D LVOT Area 3.2 cm2 AV Regurgitation Doppler AR Decel Time 1,014 ms AR Decel [place] 446 cm/s2 AR PHT 294 ms Ventricles Name Value Normal LV Dimensions 2D/MM IVS Diastolic Thickness (2D) 1.0 cm 0.6-1.0 LVID Diastole (2D) 4.8 cm 3.8-5.2 LVIW Diastolic Thickness (2D) 1.0 cm 0.6-0.9 LVID Systole (2D) 3.3 cm 2.2-3.5 LVOT Diameter 2.0 cm LV Mass (2D Cubed) 174.34 g 67.00-162.00 LV Mass Index (2D Cubed) 106 g/m2 43-95 Relative Wall Thickness (2D) 0.41 LV Fractional Shortening/Ejection Fraction 2D/MM LV Fractional Shortening (2D) 32 % 27-45 LV EF (2D Teicholz) 60 % 54-74 LV Diastolic Volume (4C MOD) 73 ml LV EF (4C MOD) 59 % LV Diastolic Volume (2C MOD) 71 ml LV EF (2C MOD) 59 % LV Diastolic Volume (BP MOD) 75 ml 46-106 LV Diastolic Volume Index (BP MOD) 45 ml/m2 29-61 LV Systolic Volume (BP MOD) 31 ml 14-42 LV Systolic Volume Index (BP MOD) 19 ml/m2 8-24 LV EF (BP MOD) 59 % 54-74 LV Diastolic Length (4C) 7.2 cm LV Systolic Length (4C) 6.0 cm LV Stroke Volume (4C MOD) 43 ml Atria Name Value Normal LA Dimensions LA Dimension (MM) 4.9 cm 2.7-3.8 LA Volume (4C A-L) 145 ml LA Volume (BP A-L) 145 ml RA Dimensions RA Area (4C) 18.8 cm2 <=18.0 Report Signatures
== END 2024-04-18 13:55 | disposition home or self-care (01) ==
LOC: ANHCARD 13:55
PROVIDERS: PCP Internal Medicine; Visit Provider Internal Medicine Pulmonary Disease
DX: I35.0 Nonrheumatic aortic (valve) stenosis (principal); I08.3 Combined rheumatic disorders of mitral, aortic and tricuspid valves; M34.1 CR(E)ST syndrome
CPT/HCPCS: 36415; 85025; 93306; 96372; Q5106

== ENCOUNTER 2024-04-19 08:47 | Outpatient (RCR) | payer MEDICARE, SELFPAY ==
[2024-04-19 09:03] VITALS: TEMP 36.8
[2024-04-19] MEDS: diphenhydrAMINE HCl CAP 25 MG CAPSULE PO (09:03)
[2024-04-19] MEDS: ACETAMINOPHEN 325 MG TABLET 650 MG PO (09:03)
[2024-04-19] MEDS: SODIUM CHLORIDE 0.9% IV 250 ML 30 ML IV CONT (09:05)
[2024-04-19 09:23] VITALS: BP 141/70; PULSE 82; RESP 18; TEMP 36.8; O2SAT 98
[2024-04-19 09:41] VITALS: BP 140/68; PULSE 86; RESP 18; TEMP 36.7; O2SAT 98
[2024-04-19 10:41] VITALS: BP 153/87; PULSE 77; RESP 16; TEMP 36.7; O2SAT 98
[2024-04-19 11:41] VITALS: BP 126/74; PULSE 76; RESP 18; TEMP 36.6; O2SAT 100
== END 2024-05-18 12:27 | disposition home or self-care (01) ==
LOC: ANHCPCTRAN 08:47
PROVIDERS: PCP Internal Medicine; Visit Provider Internal Medicine Hematology & Oncology
DX: D64.9 Anemia, unspecified (principal)
CPT/HCPCS: 36415; 36430; 86850; 86900; 86901; 86923; A9270; J7050; P9016

== ENCOUNTER 2024-05-18 12:29 | Outpatient (RCR) | payer MEDICARE, SELFPAY | END 2024-05-18 12:32 | disposition home or self-care (01) | LOC: ANHCPCTRAN 12:29 | PROVIDERS: PCP Internal Medicine; Visit Provider Internal Medicine Hematology & Oncology | DX: D64.9 Anemia, unspecified (principal) | CPT/HCPCS: 99199 ==

== ENCOUNTER 2024-05-19 06:59 | Outpatient (RCR) | payer MEDICARE, SELFPAY ==
[2024-05-19] MEDS: diphenhydrAMINE HCl CAP 25 MG CAPSULE PO (07:49)
[2024-05-19] MEDS: ACETAMINOPHEN 325 MG TABLET 650 MG PO (07:50)
[2024-05-19] MEDS: SODIUM CHLORIDE 0.9% IV 250 ML 30 ML IV CONT (07:50)
[2024-05-19 07:56] VITALS: BP 121/51; PULSE 74; RESP 14; TEMP 36.4; O2SAT 100
[2024-05-19 08:11] VITALS: BP 120/51; PULSE 72; RESP 14; TEMP 36.4; O2SAT 97
[2024-05-19 09:11] VITALS: BP 122/56; PULSE 80; RESP 14; TEMP 36.3; O2SAT 100
[2024-05-19 10:11] VITALS: BP 117/51; PULSE 68; RESP 16; TEMP 36.4; O2SAT 100
[2024-05-19 11:11] VITALS: BP 121/51; PULSE 72; RESP 16; TEMP 36.4; O2SAT 100
[2024-05-19 11:30] VITALS: BP 121/51; PULSE 68; RESP 16; TEMP 36.6; O2SAT 100
== END 2024-07-01 07:04 | disposition home or self-care (01) ==
LOC: ANHCPCTRAN 06:59
PROVIDERS: PCP Internal Medicine; Visit Provider Internal Medicine Hematology & Oncology
DX: D64.9 Anemia, unspecified (principal)
CPT/HCPCS: 36415; 36430; 86850; 86900; 86901; 86923; A9270; J7050; P9016

== ENCOUNTER 2024-07-01 06:50 | Outpatient (RCR) | payer MEDICARE, SELFPAY ==
[2024-07-01] VITALS (12 sets, daily range): BP systolic 117–138; BP diastolic 50–80; PULSE 65–76; RESP 16–18; TEMP 36.3–36.8; O2SAT 94–100
[2024-07-01 07:28] LABS: Hematocrit 22.1 % (37.0-47.0)
[2024-07-01 07:38] LABS: Hemoglobin 6.6 g/dL (12.0-15.0)
--- NOTE | 2024-07-01 07:50 | PC.NURSE ---
0740-Abnormal h & h reported to Dr. Betts. No new orders. Pt here for out-pt blood transfusion
[2024-07-01] MEDS: diphenhydrAMINE HCl CAP 25 MG CAPSULE PO (08:16)
[2024-07-01] MEDS: ACETAMINOPHEN 325 MG TABLET 650 MG PO (08:16)
[2024-07-01] MEDS: SODIUM CHLORIDE 0.9% IV 250 ML 30 ML IV CONT (08:16)
[2024-07-01 08:21] LABS: Iron 76 ug/dL (37-170)
[2024-07-01 08:30] LABS: Percent Iron Saturation 23 % (20-50)
[2024-07-01 08:47] LABS: Folic Acid > 20.0 ng/mL (2.76->20)
[2024-07-01] MEDS: FUROSEMIDE INJ 40 MG/4 ML VIAL 20 MG IV PUSH (11:23)
== END 2024-09-29 23:59 | disposition home or self-care (01) ==
LOC: ANHCPCTRAN 06:50
PROVIDERS: PCP Internal Medicine; Visit Provider Internal Medicine Hematology & Oncology
DX: D64.9 Anemia, unspecified (principal)
CPT/HCPCS: 36415; 36430; 82607; 82728; 82746; 83540; 83550; 85014; 85018; 86850; 86900; 86901; 86923; A9270; J1940; J7050; P9016

== ENCOUNTER 2024-08-01 09:21 | Outpatient (CLI) | payer MEDICARE, SELFPAY ==
[2024-08-01 09:43] LABS: Basophils Absolute Auto 0.05 K/mm3 (0.00-0.10); Basophils Percent Auto 0.9 % (0.0-1.0); Eosinophils Absolute Auto 0.49 K/mm3 (0.02-0.50); Eosinophils Percent Auto 9.3 % (1.0-6.0); Hematocrit 27.4 % (35.0-42.0); Hemoglobin 8.2 g/dL (11.7-13.8); Immature Granulocyte Absolute 0.01 K/mm3 (0.00-0.00); Immature Granulocyte Percent A 0.2 % (0.0-0.0); Lymphocytes Absolute Auto 1.68 K/mm3 (1.10-4.50); Lymphocytes Percent Auto 31.8 % (18.0-42.0); Mean Corpuscular HGB Conc 29.9 g/dL (32-36); Mean Corpuscular Hemoglobin 30.5 pg (27.0-31.0); Mean Corpuscular Volume 101.9 fL (78.0-102.0); Mean Platelet Volume 9.4 fl (9.2-11.8); Monocytes Absolute Auto 0.66 K/mm3 (0.10-0.90); Monocytes Percent Auto 12.5 % (2.0-11.0); Neutrophils Percent Auto 45.3 % (50.0-70.0); Platelet Count Result 250 K/mm3 (150-420); Red Blood Count 2.69 M/mm3 (4.20-5.40); Red Cell Distribution Width 17.2 % (11.6-14.4); White Blood Count 5.3 K/mm3 (4.8-10.8)
--- OUTSIDE RECORDS SUMMARY | 2024-08-01 10:22 | XMS_ITS | Clinical Summary ---
Author Organization [facility] [address] Address [address] [place] [address] Care Team Providers Care Marble Rubber Name Role Phone Mario Osuna MD Primary Care Provider [phone] Allergies Active Allergy Reactions Criticality Noted Date Comments Losartan Other (See comments) Low 01/29/[address] (CYMBALTA) 30 mg capsule Take 1 capsule (30 mg total) by mouth daily 07/21/19 21 Active folic acid (FOLVITE) 1 mg tablet Take 1 tablet (1 mg total) by mouth daily Active multivitamin tabletIndication s:Vitamin Deficiency Prevention Take 1 tablet by mouth Active ascorbic acid (vitamin C) 1,000 mg tablet Take 1 tablet (1,000 mg total) by mouth daily Active aspirin 81 mg enteric coated tablet Take 1 tablet (81 mg total) by mouth daily 30 tablet 11 11/27/19 24 025 Active cyanocobalamin (Vitamin B-12) 500 mcg tabletIndication s:Prevention of Vitamin B12 Deficiency Take 1 tablet (500 mcg total) by mouth daily Active diltiazem (Tiadylt ER) 120 mg 24 hr capsuleIndicatio ns:Paroxysmal atrial fibrillation (HCC) Take 1 capsule (120 mg total) by mouth daily 90 capsule 3 03/21/20 24 Active atorvastatin (LIPITOR) 20 mg tablet Take 1 tablet (20 mg total) by mouth daily 90 tablet 3 04/12/20 24 Active metoprolol tartrate (LOPRESSOR) 50 mg immediate release tablet TAKE 1 TABLET(50 MG) BY MOUTH TWICE DAILY 180 tablet 1 08/02/19 25 Active albuterol HFA (PROVENTIL HFA,VENTOLIN HFA,PROAIR HFA) 90 mcg/actuation inhaler Inhale 2 puffs every 6 (six) hours as needed 025 Discontinued([place] Reported) pantoprazole DR (PROTONIX) 40 mg EC tablet Take 1 tablet (40 mg total) by mouth every morning 025 Discontinued([place] Reported) clopidogreL (PLAVIX) 75 mg tabletIndication s:coronary artery disease Take 1 tablet (75 mg total) by mouth daily 30 tablet 11/28/19 025 Discontinued(Th erapy completed) metoprolol tartrate (LOPRESSOR) 50 mg immediate release tablet Take 1 tablet (50 mg total) by mouth 2 (two) times a day 180 tablet 1 04/25/20 24 025 Discontinued Active Problems Problem Noted Date Diagnosed Date Presence of Amulet left atrial appendage closure device 11/26/2023 History of GI bleed 11/26/2023 Anemia 02/27/2023 H/O: GI bleed 02/24/2023 Iron deficiency anemia due to chronic blood loss 02/24/2023 Anemia of chronic disease 02/24/2023 Other thrombophilia 08/21/2021 Interstitial lung disease 06/27/2021 Paroxysmal atrial fibrillation 06/26/2021 Chronic anticoagulation 06/26/2021 TIA (transient ischemic attack) 06/26/2021 Chronic diastolic CHF (congestive heart failure) 06/26/2021 Myalgia 02/03/2021 Mixed hyperlipidemia 01/29/2021 Nonrheumatic aortic insufficiency with aortic st enosis 02/07/2020 CKD stage 4 secondary to hypertension 02/07/2020 Autoimmune disease ([facility]/HCC) 05/31/2019 Non-rheumatic mitral regurgitation 11/26/2015 Overview (08/15/2016): Nonrheumatic mitral valve regurgitation Non-rheumatic tricuspid valve insufficiency 11/08 Overview (08/16/2016): Nonrheumatic tricuspid (valve) insufficiency Essential hypertension 02/09/2012 Overview (08/14/2016): BENIGN HYPERTENSION Ventricular premature beats 02/09/2012 Overview (08/15/2016): PVCs (premature ventricular contractions) Resolved Problems Problem Noted Date Diagnosed Date Resolved Date Nonrheumatic aortic valve insufficiency 11/26/2015 07/26/2020 Overview (08/14/2016): Nonrheumatic aortic (valve) insufficiency Aortic valve stenosis with insufficiency 11/26/2015 04/27/2018 Overview (08/14/2016): Nonrheumatic aortic insufficiency with aortic stenosis Chronic kidney disease 11/26/201507/26 Overview (08/14/2016): Chronic kidney disease, unspecified History of heart disorder 09/12/2013 Overview (08/15/2016): History of cardiomyopathy Aortic valve disorder 02/09/20122016 Overview (08/13/2016): AORTIC VALVE DISORDER Tricuspid valve disorders, non-rheumatic 02/09/2012 01/29/2021 Overview (08/15/2016): NONRHEUM TRICUSP JOSELITO DIS Dyspnea on exertion 02/09/2012 12/10/19 17 Overview (08/15/2016): LISA (dyspnea on exertion) Mitral valve disease 02/09/2012 017 Overview (08/15/2016): MITRAL VALVE DISORDER Chronic renal impairment 02/09/201205/2016 Overview (08/15/2016): CKD (chronic kidney disease) Encounters Date Type Department Care Team Description 07/27/2024 10:30 AM CDT Office Visit [facility] Cardiology [address] [place] [address] Frederick Galvez MD Chronic diastolic CHF (congestive heart failure) (HCC) (Primary Dx); Essential hypertension; Paroxysmal atrial fibrillation (HCC); Presence of Amulet left atrial appendage closure device; Nonrheumatic aortic valve stenosis; H/O: GI bleed 07/27/[address] [facility] Cardiac Catheterization Lab [id number] [phone] Frederick Galvez MD from Last 3 Months Surgical History Surgery Date Site/Laterality Comments CHOLECYSTECTOMY Cholecystectomy CARDIOVERSION 05/11/2021 - 05/10/2022 CARDIAC CATHETERIZATION 05/11/2010 - 05/10/2011 CATARACT EXTRACTION, BILATERAL Medical History Medical History Date Comments Hx Other Medical Renal Insuffici ency Dr. paxton charl[place]um[place] Lupus Hypertension Oxygen desaturation wears 2L at night Hyperlipidemia Myocardial infarction (HCC) Constipation Chronic kidney disease stage 4 Valvular heart disease PAF (paroxysmal atrial fibri llation) (HCC) 2021 Transient ischemic attack (TIA) 06/2021 possible TIA noted in chart Frequent PVCs Mitral valve regurgitation Tricuspid valve regurgitation Interstitial lung disease (HCC) History of GI bleed resulting in anemia Dyspnea on exertion Dizziness Sciatica Lower extremity weakness Hx of migraines Cataract History of transfusion Female bladder prolapse Family History Medical History Relation Name Comments Colon cancer Father Cancer, colon; Cause of : Cancer, colon Other Mother Heart condition ; Cause of : Heart condition Other Sister 2 Pancreatic CA; Cause of : Pancreatic CA Relation Name Status Comments Father (Age 56) Mother (Age 65) Sister 1 Sister 2 Social History Tobacco Use Types Packs/Day Years Used Date Smoking Tobacco: Never Smokeless Tobacco: Never Tobacco Cessation:Counseling Given: Not Answered Alcohol Use Standard Drinks/Week Comments No 0 (1 standard drink = 0.6 oz pur e alcohol) AUDIT-C Answer Date Recorded Q1: How often do you have a drink containing alcohol? Never 11/26/2023 Q2: How many drinks containi ng alcohol do you have on a typical day when you are drinking? Patient does not drink Q3: How often do you have si x or more drinks on one occasion? Never 11/26/2023 Personal Safety Answer Date Recorded Have you ever been in or are you currently in a harmful physical or emotional relationship or is someone making you feel afraid or unsafe? 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 Gender Identity Not on file Sexual Orientation Not on file Obstetrics History Last Filed Vital Signs Vital Sign Reading Time Taken Comments Blood Pressure 130/50 07/27/2024 10:48 AM CDT Pulse 70 07/27/2024 10:48 AM CDT Temperature 36.8 C (98.2 F) 11/27/2023 4:23 AM CDT Respiratory Rate 18 11/27/2023 4:23 AM CDT Oxygen Saturation 91% 07/27/2024 10:48 AM CDT Inhaled Oxygen Concentration - - Weight 59.4 kg (131 lb) 07/27/2024 10:48 AM CDT Height 167.6 cm (5' 6 ) 07/27/2024 10:48 AM CDT Body Mass Index 21.14 07/27/2024 10:48 AM CDT Plan of Treatment Health Maintenance Due Date Last Done Comments Depression Screening 1950 Hepatitis C Screening 1950 Osteoporosis Screening-Bone Density Scan 1948 Hepatitis B Screening 1966 Zoster Vaccine (1 of 2) 1998 Well Visit 65+ 2013 Pneumococcal vaccine 65+ (2 of 2 - PCV) 07/11/2014 07/11/2013 Influenza Vaccine (#1) 2024 0, 02/05/2019, 03/08/2018, Additional history exists Fall Risk Assessment 11/26/2024 11/27/2023 DTaP/Tdap/Td Vaccine (2 - Td or Tdap) 09/06/2025 09/07/2015 Medical Devices Implanted Type Area Thoracic Medicine Specialist Device Identifier Shelf Expiration Date Model / Serial / Lot [employer] Percutaneous Transcatheter Amplatzer Amulet 25mm [id number] - [id number] Implanted:Qty: 1 on 11/26/2023 by Frederick Galvez MD at [facility] Left Atrial Appendage Occluder Left: Atrial Appendage [employer] 11/08/2027 9-[id number] 10-025 / / [id number] [employer] System Closure Repair Femoral Artery Suture Mediated Perclose Prostyle 83797-00 - [id number] Implanted:Qty: 1 on 11/26/2023 by Frederick Galvez MD at [facility] [employer] 09/07/2025 [id number] / / [id number] [employer] System Closure Repair Femoral Artery Suture Mediated Perclose Prostyle 35437-16 - [id number] Implanted:Qty: 1 on 11/26/2023 by Frederick Galvez MD at [facility] [employer] 09/07/2025 [id number] / / [id number] Procedures Procedure Name Priority Date/Time Associated Diagnosis Comments POCT LIPID PANEL Routine 07/27/2024 10:4 3 AM CDT Chronic diastolic CHF (congestive heart failure) (HCC) Nonrheumatic aortic valve stenosis from Last 3 Months Results * POCT lipid panel (07/27/2024 10:43 AM CDT) Cholesterol, POC 138 mg/dL HDL, POC 40 mg/dL Triglycerides, POC 168 mg/dL LDL Cholesterol POC 65 mg/dL Chol/HDL Ratio, POC 1.6 Non-HDL Cholesterol, POC 98 mg/dL Cholesterol Total, POC 138 mg/dL Capillary blood 07/27/2024 1 0:43 AM CDT Frederick Galvez MD POINT OF CARE TEST ORDERABLES Fi nal Result from Last 3 Months Insurance MEDICARE MEDICARE [facility] INSURANCE JOSE LUIS Bustos [id number] MEDICARE [employer] JOSE LUIS Bustos [id number] Care Teams Marble Rubber Relationship Specialty Start Date End Date Mario Osuna MD PCP - General 09/26/13
--- OUTSIDE RECORDS SUMMARY | 2024-08-01 10:22 | XMS_ITS | Clinical Summary ---
Author Organization [facility] Address [address] [place] [address] Phone Care Team Providers Care Sash Sticker Name Role Phone Unavailable Unavailable Unavailable Reason for Visit and Chief Complaint NEW SKI MOLDER EXAM Plan of Treatment No Plan of Treatment Recorded Assessments Includes: Assessments from this encounter No Assessments Recorded Medical Equipment - Implanted Devices Includes: Current Devices No Medical Equipment Recorded Medications Administered Includes: Administered Medications from this encounter No Administered Medications Recorded Results Includes: Results discussed during this encounter No Results Recorded For Specified Dates History of Present Illness Includes: History of Present Illness from this encounter No History of Present Illness Recorded Social History No Social History Recorded - Smoking Status Unknown Medical History Includes: Medical History addressed during this encounter No Medical History Recorded Family History Includes: Family History addressed during this encounter No Family History Recorded Review of Systems Includes: Review of Systems from this encounter No Review of Systems Recorded Mental Status Includes: Mental Status from this encounter No Mental Status Recorded Functional Status Includes: Functional Status from this encounter No Functional Status Recorded Physical Exam Includes: Physical Exam from this encounter No Physical Exam Recorded Clinical Notes Includes: Clinical Notes from this encounter No Clinical Notes Recorded
--- OUTSIDE RECORDS SUMMARY | 2024-08-01 10:22 | XMS_ITS | Referral Summary ---
Author Organization [facility] [address] [facility] [address] Address [address] [place] [address] Care Team Providers Care Precision Machinist Name Role Phone Mario Osuna MD Primary Care Provider [phone] Encounters Date Type Department Care Team Description 07/27/2024 Telephone [facility] Cardiac Catheterization Lab [address] [place] [address] Frederick Galvez MD 07/27/2024 10:30 AM CDT Office Visit [facility] Cardiology [address] [place] [address] Frdeerick Galvez MD Chronic diastolic CHF (congestive heart failure) (HCC) (Primary Dx); Essential hypertension; Paroxysmal atrial fibrillation (HCC); Presence of Amulet left atrial appendage closure device; Nonrheumatic aortic valve stenosis; H/O: GI bleed from Last 3 Months Allergies Active Allergy Reactions Criticality Noted Date [...] total) by mouth daily 30 tablet 11/28/19 24 025 Discontinued(Th erapy completed) metoprolol tartrate (LOPRESSOR) [...] 4 secondary to hypertension 02/07/2020 Autoimmune disease ([facility]/HCC) 05/31/2019 Non-rheumatic mitral regurgitation 11/26/2015 Overview [...] 02/09/201205/2016 Overview (08/15/2016): CKD (chronic kidney disease) Social History Tobacco Use Types Packs/Day Years [...] on file 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 Gender Identity Not on file Sexual Orientation Not on file Last Filed Vital Signs Vital Sign Reading [...] 07/27/2024 10:48 AM CDT Plan of Treatment Not on file Medical Devices Implanted Type Area Research Associate Molecular Biology Device Identifier Shelf Expiration Date Model / Serial / Lot [employer] Percutaneous Transcatheter Amplatzer Amulet 25mm [id number] - [id number] Implanted:Qty: 1 on 11/26/2023 by Frederick Galvez MD at [facility] Left Atrial Appendage Occluder Left: Atrial Appendage [employer] 11/08/2027 9-[id number] 10-025 / / [id number] [employer] System Closure Repair Femoral Artery Suture Mediated Perclose Prostyle 67207-77 - [id number] Implanted:Qty: 1 on 11/26/2023 by Frederick Galvez MD at [facility] [employer] 09/07/2025 [id number] / / [id number] [employer] System Closure Repair Femoral Artery Suture Mediated Perclose Prostyle 41851-25 - [id number] Implanted:Qty: 1 on 11/26/2023 by Frederick Galvez MD at [facility] [employer] 09/07/2025 [id number] / / [id number] Procedures Procedure Name Priority Date/Time Associated Diagnosis [...] from Last 3 Months Insurance MEDICARE MEDICARE [employer] MEDICARE [employer] JOSE LUIS Bustos [id number] Care Teams Precision Machinist Relationship Specialty Start Date End Date Mario Osuna MD PCP - General 09/26/13
--- OUTSIDE RECORDS SUMMARY | 2024-08-01 10:22 | XMS_ITS | Clinical Summary ---
Author Organization [facility] [address]ron Mat[address] Address [address] [place] [address] Care Team Providers Care Asphalt Tamping Machine Operator Name Role Phone Mario Osuna MD Primary Care Provider [phone] Allergies No known active allergies Medications atorvastatin (LIPITOR) 20 mg tablet Take 20 mg by mouth daily. 11/27/2022 Active calcium as carbonate (CALTRATE) 1,500 mg (600 mg elemental) Tablet Take 1,500 mg by mouth daily. Active folic acid (FOLVITE) 1 mg tablet Take 1 mg by mouth daily. Active metoprolol tartrate (LOPRESSOR) 50 mg tablet Take 50 mg by mouth 2 times daily. Active DULoxetine (CYMBALTA) 30 mg Capsule, Delayed Release(E.C.) Take 30 mg by mouth daily. Active diltiaZEM (CARDIZEM CD) 120 mg Controlled Delivery 24 hour capsule Take 120 mg by mouth daily. Active Active Problems No known active problems Encounters Date Type Department Care Team Description 08/01/2024 Telephone [facility] Oncology and Hematology - [address] [place] [address] Rodney Betts MD Labs for appt 07/27/2024 External Device Data STL ABSTRACTION Provider, Abstract 07/25/2024 Orders Only [facility] Oncology and Hematology - [address] [place] [address] Rodney Betts MD Chronic anemia 07/16/2024 External Device Data STL ABSTRACTION Provider, Abstract 07/15/2024 External Device Data STL ABSTRACTION Provider, Abstract 07/14/2024 Orders Only [facility] Oncology and Hematology - [address] [place] [id number] Rodney Betts MD 07/12/2024 External Device Data STL ABSTRACTION Provider, Abstract 07/11/2024 Orders Only [facility] Oncology and Hematology - [address] [place] [address] Rodney Betts MD Chronic anemia 07/01/2024 Orders Only [facility] Oncology and Hematology - [address] [place] [address] Rodney Betts MD 06/30/2024 Abstract [facility] Oncology and Hematology - [address] [place] [address] Rodney Betts MD 06/30/2024 Orders Only [facility] Oncology and Hematology - [address] [place] [address] Rodney Betts MD Chronic anemia (Primary Dx) 06/28/2024 External Device Data STL ABSTRACTION Provider, Abstract 06/27/2024 Orders Only [facility] Oncology and Hematology - [address] [place] [address] Rodney Betts MD Chronic anemia 06/13/2024 Orders Only [facility] Oncology and Hematology - [address] [place] [id number] Rodney Betts MD Chronic anemia 06/06/2024 Orders Only [facility] Oncology and Hematology - [address] [place] [address] Rodney Betts MD 06/02/2024 External Device Data STL ABSTRACTION Provider, Abstract 06/01/2024 External Device Data STL ABSTRACTION Provider, Abstract 05/31/2024 External Device Data STL ABSTRACTION Provider, Abstract 05/30/2024 Orders Only [facility] Oncology and Hematology - [address] [place] [address] Rodney Betts MD Chronic anemia 05/24/2024 External Device Data STL ABSTRACTION Provider, Abstract 05/20/2024 Abstract [facility] Oncology and Hematology - [address] [place] [address] Rodney Betts MD 05/16/2024 Orders Only [facility] Oncology and Hematology - [address] [place] [address] Rodney Betts MD Chronic anemia from Last 3 Months Family History Medical History Relation Name Comments Colon Cancer Father Heart Disease Mother Relation Name Status Comments Brother Daughter 1 Alive Daughter 2 Alive Daughter 3 Alive Father Mother Sister Son Alive Social History Tobacco Use Types Packs/Day Years Used Date Smoking Tobacco: Never Smokeless Tobacco: Never Tobacco Cessation:Counseling Given: Not Answered Alcohol Use Standard Drinks/Week Comments Not Currently 0 (1 standard drink = 0.6 oz pur e alcohol) Comments Unknown Sex and Gender Information Value Date Recorded Sex Assigned at Not on file Legal Sex Female 9:18 AM CDT Gender Identity Not on file Sexual Orientation Not on file Last Filed Vital Signs Vital Sign Reading Time Taken Comments Blood Pressure 126/89 01/29/2024 9:34 AM CDT Pulse 69 01/29/2024 9:34 AM CDT Temperature 36.5 C (97.7 F) 01/29/2024 9:34 AM CDT Respiratory Rate 16 01/29/2024 9:34 AM CDT Oxygen Saturation 90% 01/29/2024 9:34 AM CDT Inhaled Oxygen Concentration - - Weight 58.5 kg (129 lb) 01/29/2024 9:34 AM CDT Height 167.6 cm (5' 6 ) 11/27/2022 1:43 PM CDT Body Mass Index 20.82 11/27/2022 1:43 PM CDT Plan of Treatment Upcoming Encounters Date Type Department Care Team (Late st Contact Info) Description 08/02/2024 10:15 AM CDT Office Visit [facility] Oncology and Hematology - [address] [place] [address] Rodney Betts MD [address] [facility] [address] [place] [address] Health Maintenance Due Date Last Done Comments DTAP/TDAP/TD VACCINES (1 - Tdap) 07/29/1967 PNEUMOCOCCAL VACCINE 50+ YEARS (1 of 2 - PCV) 07/28/18 68 Traditional Medicare (ACO) Annual Wellness Visit 07/28 ZOSTER VACCINE (1 of 2) 1998 OSTEOPOROSIS SCREENING 2013 RSV VACCINE (60+ or ) (1 - 1-dose 75+ series) 07/29/2023 INFLUENZA VACCINE (#1) 2023 COLORECTAL SCREENING Discontinued 09/15/2022 Colorectal Cancer Screening Discontinued FIT-DNA Q 3 years Discontinued FIT/FOBT Q 1 year Discontinued Flex Sig/CT Colonography Q 5 years Discontinued Procedures Procedure Name Priority Date/Time Associated Diagnosis Comments CBC WITH AUTODIFFERENTIAL Routine 2024 1:48 PM ESCALATION ENGINEER IRON, TIBC, AND PERCENT SATURATION Routine 07/01/2024 11:46 AM ESCALATION ENGINEER CBC WITH DIFFERENTIAL Routine 06/01/2024 9:53 AM ESCALATION ENGINEER from Last 3 Months Results * CBC WITH AUTODIFFERENTIAL (07/13/2024 1:48 PM ESCALATION ENGINEER) Blood us Rodney Betts MD HEMATOLOGY ORDERABLES Final Res ult * IRON, TIBC, AND PERCENT SATURATION (07/01/2024 11:46 AM ESCALATION ENGINEER) Blood us Rodney Betts MD CHEMISTRY ORDERABLES Final Resu lt * CBC WITH DIFFERENTIAL (06/01/2024 9:53 AM ESCALATION ENGINEER) Blood us Rodney Betts MD HEMATOLOGY ORDERABLES Final Res ult from Last 3 Months Insurance [employer] MEDICARE PART A AND B Care Teams Asphalt Tamping Machine Operator Relationship Specialty Start Date End Date Maroi Osuna MD [address] [place] [address] PCP - General Internal Medicine 10/29/22
--- OUTSIDE RECORDS SUMMARY | 2024-08-01 10:22 | XMS_ITS ---
Author Organization [facility] Address [address] [place] [address] Phone Care Team Providers Care Finance Associate Name Role Phone Unavailable Unavailable Unavailable Plan of Treatment No Plan of Treatment Recorded Assessments Includes: Assessments for all patient encounters No Assessments Recorded Medical Equipment - Implanted Devices Includes: Current and historical Devices No Medical Equipment Recorded Medications Administered Includes: Administered Medications in patient's chart No Administered Medications Recorded Results Includes: Results from 08/02/2023 through 08/01/2024 No Results Recorded For Specified Dates History of Present Illness History of Present Illness not supported for this document type No History of Present Illness Recorded Social History No Social History Recorded - Smoking Status Unknown Medical History Includes: Medical History in patient's chart No Medical History Recorded Family History Includes: Family History in patient's chart No Family History Recorded Review of Systems Review of Systems not supported for this document type No Review of Systems Recorded Mental Status No Mental Status Recorded Functional Status No Functional Status Recorded Physical Exam Physical Exam not supported for this document type No Physical Exam Recorded Clinical Notes Includes: Signed Clinical Notes starting from 05/30/2022 No Clinical Notes Recorded
--- OUTSIDE RECORDS SUMMARY | 2024-08-01 10:22 | XMS_ITS | Encounter Summary ---
Author Organization [facility] [employer] Address [address] [place] [address] Care Team Providers Care Api Developer Name Role Phone Mario Osuna MD Primary Care Provider [phone] Reason for Visit * Reason Onset Date Comments Labs for appt 08/01/2024 Encounter Details Date Type Department Care Team ( Contact Info) Description 08/01/2024 Telephone [facility] - [place] [address] [facility] [address] [place] [address] Rodney Betts MD [address] [facility] [address] [place] [address] Labs for appt Social History Tobacco Use Types Packs/Day Years Used Date Smoking Tobacco: Never Smokeless Tobacco: Never Alcohol Use Standard Drinks/Week Comments Not Currently 0 (1 standard drink = 0.6 oz pur e alcohol) Comments Unknown Sex and Gender Information Value Date Recorded Sex Assigned at Not on file Legal Sex Female 9:18 AM CDT Gender Identity Not on file Sexual Orientation Not on file documented as of this encounter Miscellaneous Notes * Telephone Encounter - Asia Clifford - 08/01/2024 8:24 AM CDT LVM for patient to give the office a call back. She got an injection last week but they did not do the labs for Dr. Betts's appointment. She would need to get her labs done today for her appointmenttomorrow. documented in this encounter Plan of Treatment Upcoming Encounters Date Type Department Care Team (Late Contact Info) Description 08/02/2024 10:15 AM CDT Office Visit [facility] - [place] [address] [facility] [address] [place] [address] Rodney Betts MD [address] [facility] [address] [place] [address] documented as of this encounter Visit Diagnoses Not on filedocumented in this encounter Care Teams Api Developer Relationship Specialty Start Date End Date Mario Osuna MD [address] [place] [address] PCP - General Internal Medicine 10/29/22 documented as of this encounter
--- OUTSIDE RECORDS SUMMARY | 2024-08-01 10:22 | XMS_ITS | Data Portability ---
Author Organization [facility], [address] [place] [address] Neurology ([place]) Address [address] [place] [address] Care Team Providers Care Showroom Sales Assistant Name Role Phone SIENA MEADE Primary Care Provider [phone] ANGELICA SHANE Anchorman [phone] Assessment Encounter Date Assessment Date Assessment LastModified by Organization Details LastModified Time 09/17/2023 09/17/2023 Ms. Paige is a very pleasant 72-year-old female with a past medical history significant for HTN, HLD, CKD stage III-IV with a baseline serum creatinine ranging between 1.4-1.6, coronary artery disease, atrial fibrillation, fibromyalgia, crest syndrome is here for follow-up appointment regarding CKD -Chronic kidney disease stage III with a baseline serum creatinine ranging between 1.4-1.6 Patient's most recent serum creatinine level is stable at 1.7 Fluid and electrolyte balance seems to be adequate at this time Urine microalbumin/creati nine ratio is very minimal. -CKD/MBD Calcium and phosphorus levels are within normal range -Hypertension Blood pressure in the office today is under good control Will continue the patient on current medications KDIGO recommendations to prevent CKD progression -Advised to undertake moderate-intensity physical activity for a cumulative duration of at least 150 minutes per week, or to a level compatible with their cardiovascular and physical tolerance -Patients should consume a balanced, healthy diet that is high in vegetables, , plant-based proteins, unsaturated fats, and lower in processed meats, refined carbohydrates, and sweetened beverages. -Sodium (<2 g/day) and protein intake (0.8 g/kg/day) in accordance with recommendations for the general population. - Suggest NOT to prescribe bisphosphonate treatment in people with GFR <30 ml/min/1.73 m2 (GFR categories G4-G5) without a strong clinical rationale. -Individualize Hba1c target goal of 6.5 to 8 % based on underlying comorbidities -Cessation of tobacco -Avoid Nephrotoxic agents -such as NSAIDS -renal dosage of all medications to the appropriate GFR badusumilli Not available 09/17/2023 16:12:26 01/14/2024 01/14/2024 Ms. Paige is a very pleasant 72-year-old female with a past medical history significant for HTN, HLD, CKD stage III-IV with a baseline serum creatinine ranging between 1.4-1.6, coronary artery disease, atrial fibrillation, fibromyalgia, crest syndrome is here for follow-up appointment regarding CKD -Chronic kidney disease stage III with a baseline serum creatinine ranging between 1.4-1.6 Patient's most recent serum creatinine level is stable at 1.9 Fluid and electrolyte balance seems to be adequate at this time Urine microalbumin/creati nine ratio is very minimal. -CKD/MBD Calcium and phosphorus levels are within normal range -Hypertension Blood pressure in the office today is under good control Will continue the patient on current medications -Anemia of chronic disease Patient's most recent hemoglobin level is at 8.2 Patient follows up with hematology/oncology and gets Aranesp injections Patient was advised to follow-up with her oncology she has an upcoming appointment in the next 1 to 2 weeks KDIGO recommendations to prevent CKD progression -Advised to undertake moderate-intensity physical activity for a cumulative duration of at least 150 minutes per week, or to a level compatible with their cardiovascular and physical tolerance -Patients should consume a balanced, healthy diet that is high in vegetables, , plant-based proteins, unsaturated fats, and lower in processed meats, refined carbohydrates, and sweetened beverages. -Sodium (<2 g/day) and protein intake (0.8 g/kg/day) in accordance with recommendations for the general population. - Suggest NOT to prescribe bisphosphonate treatment in people with GFR <30 ml/min/1.73 m2 (GFR categories G4-G5) without a strong clinical rationale. -Individualize Hba1c target goal of 6.5 to 8 % based on underlying comorbidities -Cessation of tobacco -Avoid Nephrotoxic agents -such as NSAIDS -renal dosage of all medications to the appropriate GFR scottusumilli Not available 01/14/2024 12:48:39 03/07/2024 03/07/2024 IMPRESSION: 1. CREST. 2. FMS. 3. Interstitial lung disease. 4. Sicca syndrome. PLAN: 1. Will send the last 3 progress notes from our pulmonary team and the high-resolution CT scan to Dr. Vela. 2. Will obtain the last 3 progress notes and high-resolution CT scan recently performed by Dr. Vela from [facility] for my review. 3. Labs today including Sjogren antibodies, RNA preliminary is 3, CRISTINA screen, anticentromere antibody, anti-Scl-70 antibody, C3 and C4 complement levels, anti-Nubia-1 antibody as well as CPK level, QuantiFERON-TB Gold assay, hepatitis B and C screens, C-reactive protein, CBC, CMP and Westergren sed rate. 4. May use acetaminophen up to 1 g p.o. t.i.d. p.r.n. for analgesic relief. 5. Avoid oral NSAIDs. 6. Follow-up visit in 2 months. Will have further recommendations once the results of the laboratory testing are available. pat [email or web address] Not available 03/08/2024 11:03:06 04/06/2024 04/06/2024 IMPRESSION: 1. Limited scleroderma. 2. Fibromyalgia syndrome. 3. Interstitial lung disease, currently following with Dr. Vela of pulmonary medicine. 4. Chronic kidney disease stage 4, currently following with Dr. Shane of nephrology. PLAN: 1. Encouraged patient to engage in cold protection measures for the extremities this winter. 2. We had a discussion today again about immunosuppressive therapy. At this point the risks would far outweigh the benefits. Recommended she utilize Tylenol up to 1 g p.o. t.i.d. p.r.n. only for analgesic relief and avoid oral NSAIDs. 3. Followup visit in 6 months for recheck, sooner if necessary. [email or web address] Not available 04/26/2024 17:57:15 05/26/2024 05/26/2024 Ms. Araiza is a very pleasant 73-year-old female with a past medical history significant for HTN, HLD, CKD stage III-IV with a baseline serum creatinine ranging between 1.4-1.6, coronary artery disease, atrial fibrillation, fibromyalgia, crest syndrome is here for follow-up appointment regarding CKD. C hronic kidney disease stage III with a baseline serum creatinine ranging between 1.4 1 .6. Patient's most recent serum creatinine is slightly improved from previous at 1.84 with a GFR of 28. Fluid and electrolyte balance are adequate. Patient's microalbumin/creati nine ratio is noted be very minimal at 9.8. Patient will continue to hydrate well and to avoid NSAIDs. Continue to monitor renal function panel at regular intervals. Discussed about KDIGO recommendations to prevent CKD progression -Advised to undertake moderate-intensity physical activity for a cumulative duration of at least 150 minutes per week, or to a level compatible with their cardiovascular and physical tolerance -Patients should consume a balanced, healthy diet that is high in vegetables, , plant-based proteins, unsaturated fats, and lower in processed meats, refined carbohydrates, and sweetened beverages. -Sodium (<2 g/day) and protein intake (0.8 g/kg/day) in accordance with recommendations for the general population. - Suggest NOT to prescribe bisphosphonate treatment in people with GFR o30 ml/min/1.73 m2 (GFR categories G4-G5) without a strong clinical rationale. -Individualize Hba1c target goal of 6.5 to 8 % based on underlying comorbidities -Cessation of tobacco -Avoid Nephrotoxic agents -such as NSAIDS renal dosage of all medications to the appropriate GFR -Reduce albuminuria with use of JON inhibitor or ARB -initiation of SGLT-2 Inhibitors if appropriate indication. C KD/MBD Calcium and phosphorus are within normal range. Hypertension Patient's blood pressure is under good control. Patient will continue with her current med regimen and continue to follow a low-sodium diet. Anemia of chronic disease Patient's most recent hemoglobin was noted to be 8.0 and subsequently since then patient follows with hematology and was transfused 1 unit of blood on 05/19 and is getting Aranesp shots. The patient had the opportunity to ask and have questions answered. The patient voiced an understanding of the diagnosis and of the care plan and intent to comply with it. [email or web address] Not available 05/26/2024 14:59:29 Plan of Treatment Reminders Order Date Submit Date Provider Last Modified By Organization Details Last Modified Time Details Appointments Dilan martinez Patient 15.EST 2024 10:00A M Dr. Angelica Shane Not available Not available Not available Dilan martinez Patient 15.EST 2024 10:00A M Dr. Alek Cardona Not available Not available Not available Lab CBC 2023 [facility], [address] [place] [address], [id number], 03/07/2024 16:06:56 CMP, serum or plasma 2023 [facility], [address] [place] [address], [id number], 03/07/2024 17:03:54 ESR (erythr ocyte sedimen tation rate), blood 2023 [facility], [address] [place] [address], [id number], 03/07/2024 17:21:40 C-react reinaldo protein , quantit ative, serum or plasma 2023 [facility], [address] [place] [address], [id number], 03/07/2024 17:03:52 Referral None recorde d. Procedures None recorde d. Surgeries None recorde d. Imaging None recorde d. Medication Orders None recorde d. Patient TargetsNo targets recorded. Patient InstructionsNo instructions recorded. Reason for Referral None Reported. Results Created Date Observation Date Name Description Value Unit Range Abnormal Flag Note LastModifiedBy Organization Detail LastModifiedTime 03/07/2003/07/2024 CBC CBC Not Available [facility] [address] [place] [address], [id number], 03/07/2024 16:06:56 03/07/2003/07/2024 CBC WBC 7.8 K/uL 3.8-11 .2 Not Available [facility] [address] [place] [address], [id number], 03/07/2024 16:06:56 03/07/20 24 03/07/2024 CBC RBC 2.22 M/uL 3.92-5 .10 low Not Available [facility] [address] [place] [address], [id number], 03/07/2024 16:06:56 03/07/2003/07/2024 CBC HGB 7.3 g/dL 11.8-1 5.3 low Not Available [facility] [address] [place] [address], [id number], 03/07/2024 16:06:56 03/07/2003/07/2024 CBC HCT 23.7 % 36.5-4 4.8 low Not Available [facility] [address] [place] [address], [id number], 03/07/2024 16:06:56 03/07/2003/07/2024 CBC MCV 106.8 fL 80.0-9 9.0 high Not Available [facility] [address] [place] [address], [id number], 03/07/2024 16:06:56 03/07/2003/07/2024 CBC MCH 32.9 pg 25.5-3 3.6 Not Available [facility] [address] [place] [address], [id number], 03/07/2024 16:06:56 03/07/2003/07/2024 CBC MCHC 30.8 g/dL 32.0-3 6.0 low Not Available [facility] [address] [place] [address], [id number], 03/07/2024 16:06:56 03/07/2003/07/2024 CBC RDW-SD 57.6 fL 35.1 - 46.3 high Not Available [facility] [address] [place] [address], [id number], 03/07/2024 16:06:56 03/07/2003/07/2024 CBC plt 298 K/uL 130-40 0 Not Available [facility] [address] [place] [address], [id number], 03/07/2024 16:06:56 03/07/20 24 03/07/2024 CBC MPV 9.9 fL 9.3-12 .8 Not Available [facility] [address] [place] [address], [id number], 03/07/2024 16:06:56 03/07/20 24 03/07/2024 CK (crea christine kinas e), total , serum CPK- Not Available [facility] [address] [place] [address], [id number], 03/07/2024 16:50:15 03/07/20 24 03/07/2024 CK (crea christine kinas e), total , serum CPK 45 U/L 30-200 Not Available [facility] [address] [place] [address], [id number], 03/07/2024 16:50:15 03/07/20 24 03/07/2024 C-amanda ctive prote in, quant itati ve, serum or plasm a CRP high Not Available [facility] [address] [place] [address], [id number], 03/07/2024 17:03:52 03/07/20 24 03/07/2024 C-amanda ctive prote in, quant itati ve, serum or plasm a CRP 0.6 mg/dL <0.4-0 .5 high Not Available [facility] [address] [place] [address], [id number], 03/07/2024 17:03:52 03/07/2003/07/2024 CMP, serum or plasm a comp. met. panel Not Available [facility] [address] [place] [address], [id number], 03/07/2024 17:03:54 03/07/20 24 03/07/2024 CMP, serum or plasm a sodium 138 mmol/ L 136-14 6 Not Available [facility] [address] [place] [address], [id number], 03/07/2024 17:03:54 03/07/2003/07/2024 CMP, serum or plasm a potassium 4.0 mmol/ L 3.5-5. 1 Not Available [facility] [address] [place] [address], [id number], 03/07/2024 17:03:54 03/07/2003/07/2024 CMP, serum or plasm a chloride 106 mmol/ L 98-110 Not Available [facility] [address] [place] [address], [id number], 03/07/2024 17:03:54 03/07/2003/07/2024 CMP, serum or plasm a CO2 24 mEq/L 20-32 Not Available [facility] [address] [place] [address], [id number], 03/07/2024 17:03:54 03/07/2003/07/2024 CMP, serum or plasm a anion gap 12 mmol/ L 10-22 Not Available [facility] [address] [place] [address], [id number], 03/07/2024 17:03:54 03/07/2003/07/2024 CMP, serum or plasm a glucose 98 mg/dL 70-100 Not Available [facility] [address] [place] [address], [id number], 03/07/2024 17:03:54 03/07/2003/07/2024 CMP, serum or plasm a calcium 9.2 mg/dL 8.4-10 .4 Not Available [facility] [address] [place] [address], [id number], 03/07/2024 17:03:54 03/07/2003/07/2024 CMP, serum or plasm a total protein 6.9 g/dL 6.4-8. 3 Not Available [facility] [address] [place] [address], [id number], 03/07/2024 17:03:54 03/07/2003/07/2024 CMP, serum or plasm a albumin 3.7 g/dL 3.5-5. 3 Not Available [facility] [address] [place] [address], [id number], 03/07/2024 17:03:54 03/07/2003/07/2024 CMP, serum or plasm a ALP 101 U/L 44 - 127 Not Available [facility] [address] [place] [address], [id number], 03/07/2024 17:03:54 03/07/2003/07/2024 CMP, serum or plasm a AST (SGOT) 28 U/L 10-40 Not Available [facility] [address] [place] [address], [id number], 03/07/2024 17:03:54 03/07/2003/07/2024 CMP, serum or plasm a total bilirubin 0.2 mg/dL 0.2-1. 0 Not Available [facility] [address] [place] [address], [id number], 03/07/2024 17:03:54 03/07/2003/07/2024 CMP, serum or plasm a ALT (SGPT) 19 U/L 8-35 Not Available [facility] [address] [place] [address], [id number], 03/07/2024 17:03:54 03/07/2003/07/2024 CMP, serum or plasm a BUN 23 mg/dL 7-21 high Not Available [facility] [address] [place] [address], [id number], 03/07/2024 17:03:54 03/07/20 24 03/07/2024 CMP, serum or plasm a creatinine 1.8 mg/dL 0.7-1. 3 high Not Available [facility] [address] [place] [address], [id number], 03/07/2024 17:03:54 03/07/2003/07/2024 CMP, serum or plasm a GFR(non-afri can cymraes) 29 Not Available [facility] [address] [place] [address], [id number], 03/07/2024 17:03:54 03/07/2003/07/2024 CMP, serum or plasm a GFR() 35 (EMPLOYMENT DIRECTOR ANABELLA KIDNE Y DISEA SE HAS A GFR LESS THAN 60 ML/IN N/1.7 3 MM FOR A PERIO D OF THREE MONTH S OR MORE. ) Not Available [facility] [address] [place] [address], [id number], 03/07/2024 17:03:54 03/07/20 24 03/07/2024 ESR (eryt hrocy te sedim entat ion rate) , blood sed rate 27 mm/HR 0 - 30 Not Available [facility] [address] [place] [address], [id number], 03/07/2024 17:21:40 03/07/2003/07/2024 hepat itis C Ab, serum hepatitis C Ab NONREA CTIVE nonrea ctive Not Available [facility] [address] [place] [address], [id number], 03/07/2024 17:27:53 03/07/2003/08/2024 Hepat itis B virus core Ab, qual immun oassa y, serum or plasm a hepatitis B core Ab NEGATI VE negati ve Not Available [facility] [address] [place] [address], [id number], 03/08/2024 07:40:50 03/07/2003/08/2024 hepat itis B surfa ce Ab, quant itati ve, serum hep bsab quant <3.5 mIU/m L immuni ty>10 low Statu s of Immun ity Anti- HBs Level ----- ----- ----- --- ----- ----- ---- Incon siste nt with Immun ity 0.0 - 10.0 Consi stent with Immun ity >10.0 Not Available [facility] [address] [place] [address], [id number], 03/08/2024 07:40:52 03/07/2003/08/2024 SCL-7 0 extra ctabl e nucle ar Ab, QL, IA, serum scl-70 3.4 ai 0.0-0. 9 high Not Available [facility] [address] [place] [address], [id number], 03/08/2024 12:39:31 03/07/2003/08/2024 nubia-1 Ab, serum nubia-1 <0.2 ai 0.0-0. 9 Not Available [facility] [address] [place] [address], [id number], 03/08/2024 12:39:33 03/07/2003/08/2024 centr omere Ab, titer , IFA, serum centromere antibody >8.0 ai 0.0-0. 9 high Not Available [facility] [address] [place] [address], [id number], 03/08/2024 12:39:35 03/07/2003/08/2024 C3 (comp lemen t), serum or plasm a complement C3 142 mg/dL 82-167 Not Available [facility] [address] [place] [address], [id number], 03/08/2024 12:39:36 03/07/2003/08/2024 C4 (comp lemen t), serum or plasm a complement C4 22 mg/dL 12-38 Not Available [facility] [address] [place] [address], [id number], 03/08/2024 12:39:37 03/07/2003/08/2024 sjogr en antib nicol panel (ssa, ssb, ro, la), serum sjogren's Ab (ssa Not Available [facility] [address] [place] [address], [id number], 03/08/2024 12:39:38 03/07/2003/08/2024 sjogr en antib nicol panel (ssa, ssb, ro, la), serum *ssa result <0.2 ai 0.0-0. 9 Not Available [facility] [address] [place] [address], [id number], 03/08/2024 12:39:38 03/07/2003/08/2024 sjogr en antib nicol panel (ssa, ssb, ro, la), serum *ssb result <0.2 ai 0.0-0. 9 Not Available [facility] [address] [place] [address], [id number], 03/08/2024 12:39:38 03/07/2003/09/2024 TB (M tuber culos is), IFN-g skinny+ mitog en-ga mma, blood quant TB gold Not Available [facility] [address] [place] [address], [id number], 03/09/2024 14:12:22 03/07/20 24 03/09/2024 TB (M tuber culos is), IFN-g skinny+ mitog en-ga mma, blood TB gold 0.00 IU/mL <=0.34 Not Available [facility] [address] [place] [address], [id number], 03/09/2024 14:12:22 03/07/2003/09/2024 TB (M tuber culos is), IFN-g skinny+ mitog en-ga mma, blood TB gold 2 0.00 IU/mL <=0.34 Not Available [facility] [address] [place] [address], [id number], 03/09/2024 14:12:22 03/07/20 24 03/09/2024 TB (M tuber culos is), IFN-g skinny+ mitog en-ga mma, blood TB quant interp Negat reinaldo M. tuber culos is infec tion (late nt tuber culos is or tuber culos is disea se) unlik marcela. The resul ts of Quant iFERO N TB Gold testi ng must be inter prete d in conju nctio n with other epide miolo gical , histo rical , medic al, and diagn ostic findi ngs. Not Available [facility] [address] [place] [address], [id number], 03/09/2024 14:12:22 03/07/20 24 03/10/2024 CRISTINA (anti nucle ar antib odies ) scree n, serum CRISTINA screen POSITI VE negati ve abnormal Titer to follo w Perfo rmed by Bio-R ad enzym e immun oassa y Not Available [facility] [address] [place] [address], [id number], 03/10/2024 15:05:41 03/07/2003/10/2024 CRISTINA (anti nucle ar antib odies ) titer + tona rn, ifa, serum CRISTINA titer * <=1:16 0 Great er than or equal to 1:640 Centr omere (CRISTINA INTER PRETA TION: <1:16 0 PROBA GRACIE NOT SIGNI FICAN T. 1:160 BORDE RLINE ;POSS IBLY SIGNI FIC. REPEA T IN 30 DAYS IF CLINI [facility] INDIC ATED. 1:320 - 1:640 PROBA GRACIE SIGNI FICAN T. CORRE LATIO N W/ CRISTINA SEROL OGIC PROFI LE AND CLINI YADIRA FINDI NGS ORDER ANITA AND DNA.) Perfo rmed by indir ect fluor escen t antib nicol using HEp-2 cell line Not Available [facility] [address] [place] [address], [id number], 03/10/2024 18:00:19 03/07/20 24 03/18/2024 RNA polym erase III Ab, IgG, QN, IA, serum or plasm a RNA polymerase III Ab <20 units <20 Negat reinaldo: <20 Weak Posit reinaldo: 20 - 39 Moder ate Posit reinaldo: 40 - 80 Stron g Posit reinaldo: >80 Not Available [facility] [address] [place] [address], [id number], 03/18/2024 21:41:11 Result Notes None recorded. Problems Name Problem SNOMED Code Status Onset Date Resolution Date Notes Provider Name and Address Organization Details Recorded Time Scleroderma Active 2023 Alek Cardona MD [address] [place] [address], [id number] , [facility] 4 11:32:29 Interstitial lung disease 382119008 Active 2023 Alek Cardona MD [address] [place] [address], [address] , [facility] 4 11:32:44 Fibromyalgia 301235880 Active 2023 Alek Cardona MD [address] [place] [address], [id number] , [facility] 4 11:32:52 Mucous membrane dryness 544124460 Active 2023 Alek Cardona MD [address] [place] [address], [address] , [facility] 4 11:32:58 Degenerative joint disease involving multiple joints 951752037 Active 2023 Alek Cardona MD [address] [place] [address], [address] , [facility] 4 11:57:47 Benign essential hypertension 8128052 [facility] 11:15:07 Chronic kidney disease stage 4 870539871 [facility] 4 11:15:20 Microalbuminu chase 379994124 [facility] 4 11:15:30 Hyperkalemia 21745707 [facility] 4 11:15:37 Hypercalcemia 21632812 [facility] 4 11:15:46 Edema 690894166 [facility] 4 11:16:05 Problem Notes None recorded. Medical Equipment None Reported. Allergies No known drug allergies Medications Name Sig Start Date Stop Date Status Note LastModified by Organization Details LastModified Time atorvastat in 20 mg tablet TAKE 1 TABLET BY MOUTH EVERY DAY active Not Available Not Available No t Available clopidogre l 75 mg tablet TAKE 1 TABLET BY MOUTH ONCE DAILY active Not Available Not Available No t Available aspirin 81 mg tablet,del ayed release TAKE ONE TABLET BY MOUTH DAILY active Not Available Not Available No t Available diltiazem ER 120 mg capsule,24 hr,extende d release TAKE 1 CAPSULE BY MOUTH EVERY DAY active Not Available Not Available No t Available pantoprazo le 40 mg tablet,del ayed release TAKE 1 TABLET BY MOUTH EVERY MORNING 05/26 completed Not Available Not Available Not Available metoprolol tartrate 50 mg tablet TAKE 1 TABLET BY MOUTH TWICE A DAY active Not Available Not Available No t Available estradiol 0.01% (0.1 mg/gram) vaginal cream APPLY A PEA SIZED AMOUNT NIGHTLY TO THE VAGINAL OPENING 05/26 completed NEEDED Not Available Not Available Not Available duloxetine 30 mg capsule,de layed release TAKE 1 CAPSULE BY MOUTH EVERY DAY active Not Available Not Available No t Available Aranesp (in polysorbat e) active Not Available Not Available Not Available Xarelto 15 mg tablet 01/13 completed per pt; no longer taking this med Not Available Not Available Not Available aspirin 81 mg capsule Take 1 capsule every day by oral route. 01/13 completed Not Available Not Available Not Available Vitals Date Recorded Body height Body mass index (BMI) Body weight Heart rate Oxygen saturation Oxygen saturation in Arterial blood by Pulse oximetry Systolic blood pressure Diastolic blood pressure Provider Name and Address Organization Details Last Updated DateTime 4 167.64 cm 19.1 kg/m2 65939.3 4 g 56 /min 97 % 97 % 118 mm[Hg] 62 mm[Hg] Reema Luque [facility] 4 15:54:56 Date Recorded Body height Body mass index (BMI) Body weight Heart rate Systolic blood pressure Diastolic blood pressure Provider Name and Address Organization Details Last Updated DateTime 4 167.64 cm 20.7 kg/m2 65608.8 2 g 64 /min 132 mm[Hg] 68 mm[Hg] Dior [facility] 4 12:34:26 Date Recorded Body height Body mass index (BMI) Body weight Heart rate Systolic blood pressure Diastolic blood pressure Provider Name and Address Organization Details Last Updated DateTime 4 167.64 cm 21 kg/m2 45585.7 3 g 64 /min 126 mm[Hg] 60 mm[Hg] Douglas Semaj [facility] 4 10:50:01 Date Recorded Body height Heart rate Oxygen saturation Oxygen saturation in Arterial blood by Pulse oximetry Pain severity - 0-10 verbal numeric rating [Score] - Reported Systolic blood pressure Diastolic blood pressure Provider Name and Address Organization Details Last Updated DateTime 4 167.64 cm 60 /min 98 % 98 % 0 132 mm[Hg] 60 mm[Hg] Chandni Pope [facility] 4 11:15:44 Date Recorded Body height Body mass index (BMI) Body weight Heart rate Systolic blood pressure Diastolic blood pressure Provider Name and Address Organization Details Last Updated DateTime 5 167.64 cm 20.5 kg/m2 40777.2 3 g 85 /min 124 mm[Hg] 62 mm[Hg] Gee Ty [facility] 5 11:10:51 Social History Question Answer Notes LastModified by Organizat ion Details LastModified Time Tobacco Smoking Status Never [facility] 11:16:15 What Is Your Level Of Alcohol Consumption? None [email or web address] Information not available 05/16/2024 Do You Use Any Illicit Or Recreational Drugs? No [email or web address] Information not available 05/16/2024 Sex: Unknown Functional Status None recorded. Mental Status None recorded. Family History Nothing Reported. Medical History Condition Response Cancer N Anemia N Gynecological HistoryNo gynecological history recorded. Obstetrics History GPAL:G 0 P 0 0 0 0 Immunizations Vaccine Type Date Status Note Provider Nam e and Address Organization Details Recorded Time Influenza, split virus, quadrivalent, preservative 7 completed Reema Rebel [facility] 05/16/2024 14:16:32 Influenza, high-dose, quadrivalent, PF 2 completed Reema Rebel [facility] 05/16/2024 14:16:32 Influenza, high-dose, quadrivalent, PF 1 completed Reema Rebel [facility] 05/16/2024 14:16:32 pneumococcal polysaccharide PPV23 4 completed Reema Turkey [facility] 05/16/2024 14:16:32 Tdap 6 completed Reema Turkey [facility] 05/16/2024 14:16:32 Influenza, high-dose, trivalent, PF 9 completed Reema Turkey [facility] 05/16/2024 14:16:32 Influenza, high-dose, trivalent, PF 5 completed Reema Rebel [facility] 05/16/2024 14:16:32 Influenza, high-dose, trivalent, PF 8 completed Reema Turkey [facility] 05/16/2024 14:16:32 Influenza, high-dose, trivalent, PF 6 completed Reema Rebel [facility] 05/16/2024 14:16:32 Influenza, split virus, trivalent, preservative 4 completed Reema [place] [facility] 05/16/2024 14:16:32 influenza, seasonal, intradermal, preservative free 2 completed Reema Luque jorge, [facility] 05/16/2024 14:16:32 Influenza, split virus, quadrivalent, PF 0 completed Reema Luque jorge, [facility] 05/16/2024 14:16:32 Past Encounters Encounter ID Performer Location Encounter Start Date Encounter Closed Date Diagnosis/Indication Diagnosis SNOMED-CT Code Diagnosis ICD10 Code Diagnosis Note [id number] Angelica Shane MD [facility] ([place]) [address] [place] [address] 09/17/2023 15:20:34 09/17/2023 16:12:06 Benign essential hypertension 5725608 I10 Chronic ki dney disease stage 4 419404800 N18.4 Hyperkalemia 68785419 E8 7.5 Microalbuminuria 0319820 06 R80.9 Hypercalcemia 98644870 E 83.52 Edema 330489170 R60.9 [id number] Angelica Shane MD [facility] ([place]) [address] [place] [address] 01/14/2024 11:33:16 01/14/2024 12:49:10 Chronic kidney disease stage 4 809886008 N18.4 Benign ess ential hypertension 3186157 I10 Edema 619826592 R60.9 Hypercalcemia 80780387 E 83.52 Hyperkalemia 08259909 E8 7.5 Microalbuminuria 2082603 06 R80.9 [id number] Alek Cardona MD [address] [facility] ([place]) [address] [address] 03/07/2024 10:26:01 03/07/2024 18:38:56 Scleroderma 851794456 M34.9 Interstiti al lung disease 158624617 J84.9 Fibromyalgia 936819829 M 79.7 Mucous mem brane dryness 532782641 M35.00 [id number] Sue Jorge Luisoboda [address] [facility] ([place]) [address] [place] [address] 04/06/2024 10:51:16 04/13/2024 18:06:30 Scleroderma 861742075 M34.9 Interstiti al lung disease 444381388 J84.9 Fibromyalgia 693803766 M 79.7 Degenerati ve joint disease involving multiple joints 156414460 M15.9 Chronic ki dney disease stage 4 815881033 N18.4 [id number] Chitra Maxwell PA-C [facility] ([place]) [address] [place] [address] 05/26/2024 10:17:15 05/26/2024 11:32:21 Chronic kidney disease stage 4 578162435 N18.4 Benign ess ential hypertension 9100739 I10 Edema 208980737 R60.9 Hypercalcemia 34452283 E 83.52 Hyperkalemia 99289947 E8 7.5 Microalbuminuria 9479452 06 R80.9 Health Concerns Section Related Observation LastModified by Organization Detai ls LastModified Time None Recorded Concern Status LastModified by Organization Details LastModified Time None Recorded Advance Directives Directive None Recorded Payers Encounter Date Sequence Insurance Name Policy Number Policy Rosario Covered Member ID Rosario Member ID Guarantor Name 09/17/2023 1 [place] Susan Araiza [id number] Susan Araiza 01/14/2024 1 [place] Araiza [id number] Susan Araiza 03/07/2024 1 [place] Araiza [id number] Susan Araiza 04/06/2024 1 [place] Araiza [id number] Susan Araiza 04/06/2024 1 [employer] (MEDICARE SUPPLEMENT) Susan Araiza [id number] Susan Araiza 05/26/2024 1 [place] Araiza [id number] Susan Araiza Notes Date Note Type Note Provider Name and Address Organization Details Recorded Time 09/17/2023 text/html Ms. Paige is a very pleasant 72-year-old female with a past medical history significant for HTN, HLD, CKD stage III-IV with a baseline serum creatinine ranging between 1.4-1.6, coronary artery disease, atrial fibrillation, fibromyalgia, crest syndrome is here for follow-up appointment regarding CKD -She denies having any nausea, vomiting or diarrhea Denies having any lightheadedness or dizziness Blood pressure in the office today is 118/62 heart rate of 56 She is been compliant with her medications as well as low-sodium diet No signs of lower extremity edema. Angelica Shane MD [address] [place] [address], [phone], [facility] 09/17/2023 16:13:02 01/14/2024 text/html Ms. Paige is a very pleasant 72-year-old female with a past medical history significant for HTN, HLD, CKD stage III-IV with a baseline serum creatinine ranging between 1.4-1.6, coronary artery disease, atrial fibrillation, fibromyalgia, crest syndrome is here for follow-up appointment regarding CKD She denies having any chest pain, shortness breath or palpitation Denies having any dysuria, hematuria or symptoms of UTI She is been compliant with her medications as well as low-sodium diet Angelica Shane MD [address] [place] [address], [phone], [facility] 01/14/2024 12:49:33 03/07/2024 text/html A 73-year-old fe male with a history of CREST syndrome and fibromyalgia syndrome as well as interstitial lung disease who is here today for a follow-up visit. The patient has been noncompliant with follow-up and actually I have not seen her for 2 years. She reports she was on mycophenolate therapy but then suffered a GI bleed and was seen by her head holder/oncologi stDr. Puentes at [facility]. At one point, it was thought she may have suffered a bleed related to her MMF and was taken off the medication though she continued to experience blood loss. She eventually required removal from Xarelto therapy which she was taking for atrial fibrillation. She underwent the placement of an Amulet filter device and currently remains off anticoagulation with the exception of clopidogrel. The patient has iron-deficiency anemia and has received multiple transfusions of iron. She reports at this point off of medication therapy, she has experienced some aching in her fingers, mostly the thumbs at the carpometacarpal joints. She rates her pain as 7/10 on a scale. Currently, her morning stiffness is lasting up to 20 minutes in duration and does not describe any true synovitis type symptoms. She has chronic dyspnea on exertion. She has interstitial lung disease and does follow with Dr. Vela of pulmonology at [facility]. She is not currently on any active antifibrotic or interstitial lung disease treatment. She is up to date with her pneumococcal vaccines but has not received her flu or RSV vaccine or COVID vaccines. She states she does not want them. On further review of systems, she has had no Raynaud symptoms, hemoptysis, chest pain or palpitations, GERD, melena or hematochezia lately. She did have a bout of hematochezia previously before getting off Xarelto therapy. She has had no dysuria or gross hematuria. Alek Cardona MD [facility] [address], [address], [facility] 03/08/2024 16:11:39 04/06/2024 text/html The patient is a 73-year-old female with a history of limited scleroderma and fibromyalgia syndrome, as well as interstitial lung disease, who is here today for a followup visit. The patient currently reports generally feeling well as long as she receives her iron infusions. She has been seeing Dr. Betts of hematology/oncology at [facility] regarding iron deficiency anemia. She does see Dr. Vela regarding her interstitial lung disease also at [facility] for pulmonary care. Her 6 minute walk that was performed at the end of February 2024 is reviewed with her today. It was normal. The patient reports no joint pain, no joint swelling. She has not encountered much in the way of Raynaud s symptoms so far this winter. She denies any fever or chills. No generalized skin rash, photosensitivity, aphthous ulcers, sicca symptoms, neck swelling or lymph node swelling. No cough or hemoptysis. No chest pain or palpitations, GERD, melena or hematochezia. She does have chronic kidney disease stage 4, but her GFR has remained very stable. She sees Dr. Shane of nephrology.yadi patel, [facility] 04/27/2024 16:57:11 05/26/2024 text/html Ms. Araiza is a very pleasant 73-year-old female with a past medical history significant for HTN, HLD, CKD stage III-IV with a baseline serum creatinine ranging between 1.4-1.6, coronary artery disease, atrial fibrillation, fibromyalgia, crest syndrome is here for follow-up appointment regarding CKD. Patient denies any fever, chills, or sweats. She denies any chest pain or shortness of breath. She continues to hydrate well and to avoid NSAIDs. She is companied by her is in the room with her permission. She continues to follow with hematology for ongoing anemia issues and did have her last transfusion on 05/19/2024 Chitra Maxwell PA-C [address] [facility], [place], [address], [place] [facility] 05/26/2024 14:59:52 OBGyn Episode No OBEpisode recorded.
--- OUTSIDE RECORDS SUMMARY | 2024-08-01 10:23 | XMS_ITS | Clinical Summary ---
Author Organization [facility] Address [address] [place] [address] Care Team Providers Care Pershing Missile Crewmember Name Role Phone Mario Osuna MD Primary Care Provider [phone] Allergies Active Allergy Reactions Criticality Noted Date Comments Losartan Other (see comment) Low 01/29/2021 hyperkalemia Medications ferrous sulfate, 65 mg elemental, 325 (65 FE) MG tablet Take 1 tablet by mouth 3 (three) times daily with meals. Active DULoxetine 20 MG capsule Take 30 mg by mouth daily. 03/16/2021 Active atorvastatin 20 MG tablet Take 1 tablet (20 mg total) by mouth daily. 30 tablet 03/16/2021 Active ARNUITY ELLIPTA 200 MCG/ACT AEROSOL POWDER, BREATH ACTIVATED Inhale 1 puff into the lungs daily. 01/13/2022 Active metoprolol tartrate (LOPRESSOR) 50 MG tablet Take 50 mg by mouth 2 (two) times daily. 04/18/2022 Active XARELTO 15 MG tablet Take 15 mg by mouth daily. 12/02/2021 Active mycophenolate mofetil (CELLCEPT) 500 MG tablet Take 1,000 mg by mouth 2 (two) times daily. 06/25/2022 Active calcium carbonate (CALCIUM 600) 1500 (600 Ca) MG tablet Take 1,500 mg by mouth daily. Active albuterol sulfate HFA (PROAIR HFA) 108 (90 Base) MCG/ACT inhaler Inhale 2 puffs into the lungs every 6 (six) hours as needed for Wheezing. Active Active Problems Problem Noted Date Diagnosed Date Hypercalcemia 03/15/2021 CKD stage 4 secondary to hypertension (CMS/HCC H HS/HCC) 02/07/2020 Essential hypertension 02/09/2012 Overview (03/15/2021): BENIGN HYPERTENSION Encounters Date Type Department Care Team Description 05/06/2024 10:34 AM CAD MANAGER - 05/06/2024 11:59 PM CAD MANAGER Hospital Encounter [place] [address] [place] [address] Angelica Shane MD Discharge Disposition: Home or Self Care (Routine Discharge) 05/06/2024 Orders Only [address] [place] [address] Angelica Shane MD 05/06/2024 Travel from Last 3 Months Social History Tobacco Use Types Packs/Day Years Used Date Smoking Tobacco: Never Smokeless Tobacco: Never Alcohol Use Standard Drinks/Week Comments Not Currently 0 (1 standard drink = 0.6 oz pur e alcohol) Comments No Sex and Gender Information Value Date Recorded Sex Assigned at Not on file Legal Sex Female 9:41 PM CAD MANAGER Gender Identity Not on file Sexual Orientation Not on file Last Filed Vital Signs Vital Sign Reading Time Taken Comments Blood Pressure 131/53 07/03/2022 5:30 PM CAD MANAGER Pulse 70 07/03/2022 5:30 PM CAD MANAGER Temperature 36.4 C (97.6 F) 07/03/2022 5:30 PM CAD MANAGER Respiratory Rate 19 07/03/2022 5:30 PM CAD MANAGER Oxygen Saturation 100% 07/03/2022 5:30 PM CAD MANAGER Inhaled Oxygen Concentration - - Weight 59 kg (130 lb 2 oz) 07/03/2022 10:[address] Height 167.6 cm (5' 6 ) 07/03/2022 10:56 AM CAD MANAGER Body Mass Index 21 07/03/2022 10:56 AM CAD MANAGER Plan of Treatment Health Maintenance Due Date Last Done Comments COVID-19 Vaccine (#1) 1955 Pneumococcal Vaccine: 65+ Years (1 of 2 - PCV) 1954 Hepatitis C 1966 DTaP, Tdap and Td Vaccines (1 - Tdap) 07/29/1967 Zoster Vaccines (1 of 2) 07/29/1967 Annual Medicare Wellness Visit 2013 Dexa Scan (General) 2013 RSV Immunization or 60+ Years (1 - 1-dose 75+ series) 07/29/2023 Influenza Adult (#1) 2024 02/05/2019, 03/08/2018, 03/15/2016, Additional history exists Colorectal Cancer Screening FIT/FOBT (1 Year) Discontinued 07/03/2022 Meningococcal B Vaccine Aged Out No l onger eligible based on patient's age to complete this topic Meningococcal Vaccine Aged Out No sam ivana eligible based on patient's age to complete this topic RSV Immunizations Under 20 Months Aged Out No longer eligible based on patient's age to complete this topic Procedures Procedure Name Priority Date/Time Associated Diagnosis Comments ALBUMIN URINE RANDOM W/CREATININE Routine 05/06/2024 10:42 AM CAD MANAGER Chronic kidney disease, stage 4 (severe) ([facility]) CBC W/DIFF AUTOMATED Routine 05/06/2024 10:41 AM CAD MANAGER Chronic kidney disease, stage 4 (severe) ([facility]) RENAL FUNCTION PANEL Routine 05/06/2024 10:41 AM CAD MANAGER Chronic kidney disease, stage 4 (severe) ([facility]) OCCULT BLOOD, FECES STAT 07/03/2022 1 1:21 AM CAD MANAGER from Last 3 Months or Most Recently Relevant to Health Maintenance Results * ALBUMIN CREATININE URINE RANDOM (05/06/2024 10:42 AM CAD MANAGER) ALBUMIN (U) 0.6 MG/DL 05/06/2024 11:01 AM [facility] Comment:REFERENCE RANGE NOT ESTABLISHED CREATININE RANDOM (U) 60.9 MG/DL 05/06/2024 11:01 AM [facility] Comment:REFERENCE RANGE NOT ESTABLISHED ALBUMIN/CREAT RATIO 9.8 <30 MG/G 05/06/2024 11:01 AM [facility] Comment: NORMAL TO MILDLY INCREASED ALBUMINURIA: <30 MG/G MODERATELY INCREASED ALBUMINURIA: 30 TO 300 MG/G SEVERELY INCREASED ALBUMINURIA: >300 MG/G PER KDIGO URINE SPECIMEN / Unknown 05/06/2024 10:42 AM CAD MANAGER us Angelica Shane MD URINE ORDERABLES Final Res ult [facility] [address] [place] [address], * (ABNORMAL) RENAL FUNCTION PANEL (05/06/2024 10:41 AM CAD MANAGER) SODIUM S/P/B 143 136 - 145 MMOL/L 05/06/2024 11:01 AM [facility] POTASSIUM S/P/B 4.3 3.5 - 5.1 MMOL/L 05/06/2024 11:01 AM [facility] CHLORIDE S/P/B 108(H) 98 - 107 MMOL/L 05/06/2024 11:01 AM [facility] CO2 25.6 21.0 - 32.0 MMOL/L 05/06/2024 11:01 AM [facility] GLUCOSE 102(H) 70 - 99 MG/DL 05/06/2024 11:01 AM [facility] Comment: FASTING GLUCOSE 100 TO 125 MG/DL IS CONSISTENT WITH IMPAIRED FASTING GLUCOSE. FASTING GLUCOSE >125 MG/DL IS CONSISTENT WITH DIABETES. RANDOM GLUCOSE >200 MG/DL WITH HYPERGLYCEMIC SYMPTOMS IS CONSISTENT WITH DIABETES. PER ADA GUIDELINES BUN 26(H) 6 - 24 MG/DL 05/06/2024 11:01 AM [facility] CREATININE S/P/B 1.84(H) 0.55 - 1.02 MG/DL 05/06/2024 11:01 AM [facility] CALCIUM S/P/B 9.3 8.4 - 10.5 MG/DL 05/06/2024 11:01 AM [facility] ALBUMIN S/P/B 2.9(L) 3.4 - 5.0 G/DL 05/06/2024 11:01 AM [facility] PHOSPHORUS 3.2 2.6 - 4.7 MG/DL 05/06/2024 11:01 AM [facility] ANION GAP 9.4 5.0 - 15.0 MMOL/L 05/06/2024 11:01 AM CAD MANAGER [facility] OSMOLALITY (CALC) 301 MOSM/KG 024 11:01 AM [facility] Comment:REFERENCE RANGE NOT ESTABLISHED GFR ESTIMATE 28(L) >89 ML/MIN/1. 73 M2 05/06/2024 11:01 AM [facility] GFR NOTES GFR REFERENCE S: 05/06/2024 11:01 AM [facility] Comment: THE ESTIMATED GFR IS CALCULATED USING THE 2020 CKD-EPI EQUATION. THE FOLLOWING CATEGORIES FOR GRADING RENAL FUNCTION ARE RECOMMENDED BY THE INTERNATIONAL SOCIETY OF NEPHROLOGY (KDIGO 2012 CLINICAL PRACTICE GUIDELINE). G1,NORMAL OR HIGH: >89 ml/min/1.73 m2 G2,MILDLY DECREASED: 60-89 ml/min/1.73 m2 G3A,MILDLY TO MODERATELY DECREASED: 45-59 ml/min/1.73 m2 G3B,MODERATELY TO SEVERELY DECREASED: 30-44 ml/min/1.73 m2 G4,SEVERELY DECREASED: 15-29 ml/min/1.73 m2 G5,KIDNEY FAILURE: <15 ml/min/1.73 m2 05/06/2024 10:4 1 AM CAD MANAGER Angelica Shane MD LABORATORY Final Resu lt [facility] [address] [place] [address], * (ABNORMAL) CBC W/DIFF AUTOMATED (05/06/2024 10:41 AM CAD MANAGER) WBC 6.42 4.00 - 10.80 x10'3/uL 05/06/2024 10:53 AM CAD MANAGER [facility] RBC 2.54(L) 4.10 - 5.40 x10'6/uL 05/06/2024 10:53 AM [facility] HGB 8.0(L) 12.0 - 16.0 G/DL 05/06/2024 10:53 AM CAD MANAGER [facility] HCT 26.7(L) 36.0 - 47.0 % 05/06/2024 10:53 AM [facility] MCV 105.1(H) 78.0 - 100.0 FL 05/06/2024 10:53 AM [facility] MCH 31.5(H) 27.0 - 31.0 PG 05/06/2024 10:53 AM [facility] MCHC 30.0(L) 33.0 - 36.0 G/DL 05/06/2024 10:53 AM [facility] RDW 16.1(H) 11.5 - 14.5 % 05/06/2024 10:53 AM [facility] PLT 327 150 - 350 x10'3/uL 05/06/2024 10:53 AM [facility] MPV 9.2 7.4 - 10.4 FL 05/06/2024 10:53 AM [facility] CBC COMMENT NORMAL REFERENCE RANGE NOT ESTABLISHED FOR THE PROPORTIONAL LEUKOCYTE DIFFERENTIAL. 05/06/2024 10:53 AM [facility] NEUTROPHILS % 54.1 % 05/06/2024 10:53 AM [facility] LYMPHOCYTES % 26.2 % 05/06/2024 10:53 AM [facility] MONOCYTES % 9.8 % 05/06/2024 10:53 AM [facility] EOSINOPHILS % 8.7 % 05/06/2024 10:53 AM [facility] BASOPHILS % 0.9 % 05/06/2024 10:53 AM [facility] IMMATURE GRANS % 0.3 % 05/06/20 10:53 AM [facility] NRBC % 0.0 % 05/06/2024 10:53 AM [facility] ABS. NEUTROPHILS 3.47 1.60 - 8.30 x10'3/uL 05/06/2024 10:53 AM [facility] ABS. LYMPHOCYTES 1.68 0.80 - 4.70 x10'3/uL 05/06/2024 10:53 AM [facility] ABS. MONOCYTES 0.63 0.00 - 1.50 x10'3/uL 05/06/2024 10:53 AM CAD MANAGER [facility] ABS. EOSINOPHILS 0.56(H) 0.00 - 0.40 x10'3/uL 05/06/2024 10:53 AM CAD MANAGER [facility] ABS. BASOPHILS 0.06 0.00 - 0.20 x10'3/uL 05/06/2024 10:53 AM CAD MANAGER [facility] ABS. IMMATURE GRANULOCYTES 0.02 0.00 - 0.03 x10'3/uL 05/06/2024 10:53 AM CAD MANAGER [facility] ABS. NUCLEATED RBC'S 0.00 0.00 - 0.01 x10'3/uL 05/06/2024 10:53 AM CAD MANAGER [facility] 05/06/2024 10:4 1 AM CAD MANAGER Angelica Shane MD LABORATORY Final Resu lt [address] [address], * OCCULT BLOOD, FECES (07/03/2022 11:21 AM CAD MANAGER) OCCULT BLOOD FECAL NEGATIVE NEGATIVE 07/03/2022 11:33 AM CAD MANAGER [facility] STOOL SPECIMEN / Unknown 07/03/2022 11:21 AM CAD MANAGER Kiara De La Rosa MD BODY FLUIDS AND STOOLS OR DERABLES Final Result [address] [address], from Last 3 Months or Most Recently Relevant to Health Maintenance Insurance [place]IC[place] [id number] Advance Directives * Full Code (Latest Code Status on File) Date Activated Date Inactivated Comments 03/15/2021 5:41 PM 03/16/2021 4:05 PM Care Teams [employer] Crewmember Relationship Specialty Start Date End Date Mario Osuna MD [address] [place] [address] PCP - General INTERNAL MEDICINE 01/06/20
--- OUTSIDE RECORDS SUMMARY | 2024-08-01 10:23 | XMS_ITS ---
Care Plan - [facility] Created on: August 01, 2024 ALIREZA ZURITA : 1950 Sex: Female Author Organization [facility] Address [address] [place] [address] Phone Care Team Providers Care Ornamental Iron Worker Apprentice Name Role Phone Unavailable Unavailable Unavailable
[2024-08-01 11:05] LABS: Anion Gap 10 mmol/L (4-12); Blood Urea Nitrogen 23 mg/dL (7-18); Calcium 9.3 mg/dL (8.5-10.1); Carbon Dioxide 27 mmol/L (21-32); Chloride 107 mmol/L (98-108); Estimated Glomerular Filt Rate 24; Ferritin 205 ng/mL (8-252); Glucose 94 mg/dL (70-99); Iron 36 ug/dL (50-170); Osmolality Calculated 301 mOsm/kg (285-295); Percent Iron Saturation 13 % (12-57); Potassium 4.7 mmol/L (3.5-5.1); Sodium 144 mmol/L (136-145); Vitamin B12 993 pg/mL (193-986)
[2024-08-01 11:06] LABS: Folic Acid > 20.0 ng/mL (8.6->20)
== END 2024-08-01 09:22 | disposition home or self-care (01) ==
LOC: CHSLAB 09:23
PROVIDERS: PCP Internal Medicine; Visit Provider Internal Medicine Hematology & Oncology
DX: D64.9 Anemia, unspecified (principal)
CPT/HCPCS: 36415; 80048; 82607; 82728; 82746; 83540; 83550; 85025

== ENCOUNTER 2024-08-18 08:52 | Outpatient (CLI) | payer MEDICARE, SELFPAY ==
--- NOTE | ~2024-08-18 | CT_ITS ---
CT Scan of the Chest without Contrast: Clinical Indication: Interstitial lung disease Technique: Contiguous sections were acquired throughout the chest without intravenous contrast. Dose reduction technique was used on this scan by utilizing automated exposure control and iterative recon struction technique. The dose-length product (DLP) was 129.09 mGy-cm. COMPARISON: 03/09/2024 Findings: There is no evidence of any significant mediastinal, hilar or axillary lymphadenopathy. Left atrial a ppendage closure device present. Cardiomegaly present. There is no evidence of pleural or pericardial effusion. There is interstitial thickening and patchy mild groundglass/mosaic attenuation pattern of the lung b ases. Mild diffuse subpleural reticulation present in the upper lobes. Images through the upper abdomen reveal no abnormalities. Impression: Chronic interstitial disease, as detailed above, very similar to prior exam. Pattern suggests NSIP. Reviewed, dictated and finalized at [facility]. Impression: Chronic interstitial disease, as detailed above, very similar to prior exam. Pa ttern suggests NSIP.
--- OUTSIDE RECORDS SUMMARY | 2024-08-18 09:06 | XMS_ITS | Clinical Summary ---
Author Organization [facility] Nasrin waldron Maty Address [address] [place] [address] Care Team Providers Care Field Technician Name Role Phone Mario Osuna MD Primary Care Provider [phone] Allergies No known active allergies Medications atorvastatin [...] Encounters Date Type Department Care Team Description 08/11/2024 Orders Only [facility] - [place] [address] [place] [address] Rodney Betts MD 08/08/2024 Orders Only [facility] - [place] [address] [place] [address] Rodney Betts MD Chronic anemia 08/03/2024 Orders Only [facility] - [place] [address] [place] [address] Rodney Betts MD 08/02/2024 10:15 AM CDT Office Visit [facility] - [place] [address] [place] [id number] Rodney Betts MD Chronic anemia (Primary Dx) 08/02/2024 Orders Only [facility] - [place] [address] [place] [address] Rodney Betts MD 08/01/2024 Orders Only [facility] - [place] [address] [place] [address] Rodney Betts MD 08/01/2024 Telephone [facility] - [place] [address] [place] [address] Rodney Betts MD Labs for appt 07/27/2024 External Device Data STL ABSTRACTION Provider, Abstract 07/25/2024 Orders Only [facility] - [place] [address] [place] [address] Rodney Betts MD Chronic anemia 07/16/2024 External Device Data STL ABSTRACTION Provider, Abstract 07/15/2024 External Device Data STL ABSTRACTION Provider, Abstract 07/14/2024 Orders Only [facility] - [place] [address] Rodney Betts MD 07/12/2024 External Device Data STL ABSTRACTION Provider, Abstract 07/11/2024 Orders Only [facility] - [place] [address] [place] [phone] Rodney Betts MD Chronic anemia 07/01/2024 Orders Only [facility] - [place] [address] Rodney Betts MD 06/30/2024 Abstract [facility] - [place] [address] Rodney Betts MD 06/30/2024 Orders Only [facility] - [place] [address] Rodney Betts MD Chronic anemia (Primary Dx) 06/28/2024 External Device Data STL ABSTRACTION Provider, Abstract 06/27/2024 Orders Only [facility] - [place] [address] [place] [phone] Rodney Betts MD Chronic anemia 06/13/2024 Orders Only [facility] - [place] [address] [place] [phone] Rodney Betts MD Chronic anemia 06/06/2024 Orders Only [facility] - [place] [address] [place] [phone] Rodney Betts MD 06/02/2024 External Device Data STL ABSTRACTION Provider, Abstract 06/01/2024 External Device Data STL ABSTRACTION Provider, Abstract 05/31/2024 External Device Data STL ABSTRACTION Provider, Abstract 05/30/2024 Orders Only [facility] - [place] [address] [place] [id number] Rodney Betts MD Chronic anemia 05/24/2024 External Device Data STL ABSTRACTION Provider, Abstract 05/20/2024 Abstract [facility] - [place] [address] [place] [id number] Rodney Betts MD from Last 3 Months Family History Medical [...] Sign Reading Time Taken Comments Blood Pressure 119/66 08/02/2024 9:55 AM CDT Pulse 79 08/02/2024 9:55 AM CDT Temperature 36.2 C (97.2 F) 08/02/2024 9:55 AM CDT Respiratory Rate 15 08/02/2024 9:55 AM CDT Oxygen Saturation 91% 08/02/2024 9:55 AM CDT Inhaled Oxygen Concentration - - Weight 59.5 kg (131 lb 3.2 oz) 08/02/2024 9:55 A M CDT Height 167.6 cm (5' 6 ) 11/27/2022 1:43 PM CDT Body Mass Index 21.18 11/27/2022 1:43 PM CDT Plan of Treatment Upcoming Encounters Date Type Department Care Team (Late st Contact Info) Description 11/03/2024 9:45 AM CDT Office Visit [facility] - [place] [address] [place] [address] [facility] [address] [place] [address] Rodney Betts MD [address] [facility] [address] [place] [address] Health Maintenance Due Date Last Done Comments DTAP/TDAP/TD VACCINES (1 - Tdap) 07/29/1967 PNEUMOCOCCAL VACCINE 50+ YEARS (1 of 2 - PCV) 07/28/18 68 Traditional Medicare (O) Annual Wellness Visit 07/28 ZOSTER VACCINE (1 of 2) 1998 OSTEOPOROSIS SCREENING 2013 RSV VACCINE (60+ or ) (1 - 1-dose 75+ series) 07/29/2023 INFLUENZA VACCINE (#1) 2023 COLORECTAL SCREENING Discontinued 09/15/2022 Colorectal Cancer Screening Discontinued FIT-DNA Q 3 years Discontinued FIT/FOBT Q 1 year Discontinued Flex Sig/CT Colonography Q 5 years Discontinued Procedures Procedure Name Priority Date/Time Associated Diagnosis Comments CBC MIXED CELL DIFFERENTIAL Routine 07/2024 4:20 PM CDT BASIC METABOLIC PANEL Routine 08/01/2024 2:42 PM CDT BASIC METABOLIC PANEL Routine 08/01/2024 1:29 PM CDT CBC WITH DIFFERENTIAL Routine 08/01/2024 11:47 AM CDT CBC WITH DIFFERENTIAL Routine 08/01/2024 11:29 AM CDT CBC WITH AUTODIFFERENTIAL Routine 2024 12:40 PM CDT CBC WITH AUTODIFFERENTIAL Routine 2024 1:48 PM [employer] VESSEL IRON, TIBC, AND PERCENT SATURATION Routine 07/01/2024 11:46 AM [employer] CBC WITH DIFFERENTIAL Routine 06/01/2024 9:53 AM [employer] VES[employer] from Last 3 Months Results * CBC MIXED CELL DIFFERENTIAL (08/11/2024 4:20 PM CDT) Blood us Rodney Betts MD HEMATOLOGY ORDERABLES Final Res ult * BASIC METABOLIC PANEL (08/01/2024 2:42 PM CDT) Only the most recent of2 resultswithin the time period is included. Blood us Rodney Betts MD CHEMISTRY ORDERABLES Final Resu lt * CBC WITH DIFFERENTIAL (08/01/2024 11:47 AM CDT) Only the most recent of3 resultswithin the time period is included. Blood us Rodney Betts MD HEMATOLOGY ORDERABLES Final Res ult * CBC WITH AUTODIFFERENTIAL (2024 12:40 PM CDT) Only the most recent of2 resultswithin the time period is included. Blood us Rodney Betts MD HEMATOLOGY ORDERABLES Final Res ult * IRON, TIBC, AND PERCENT SATURATION (07/01/2024 11:46 AM [employer]) Blood us Rodney Betts MD CHEMISTRY ORDERABLES Final Resu lt from Last 3 Months Insurance [employer] MEDICARE PART A AND B Care Teams Field Technician Relationship Specialty Start Date End Date Mario Osuna MD [address] [place] [address] PCP - General Internal Medicine 10/29/22
--- OUTSIDE RECORDS SUMMARY | 2024-08-18 09:06 | XMS_ITS | Clinical Summary ---
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) 05/31/2019 Non-rheumatic mitral regurgitation 11/26/2015 Overview (08/15/2016): [...] Description 07/27/2024 10:30 AM CDT Office Visit [facility] [address] [place] [address] Frederick Galvez MD Chronic diastolic CHF (congestive heart failure) (HCC) (Primary Dx); Essential hypertension; Paroxysmal atrial fibrillation (HCC); Presence of Amulet left atrial appendage closure device; Nonrheumatic aortic valve stenosis; H/O: GI bleed 07/27/2024 Telephone [facility] Cardiac Catheterization Lab [address] [id number] Frederick Galvez MD from Last 3 Months [...] on file Legal 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 Gender Identity Not on file Sexual Orientation [...] (2 of 2 - PCV) 07/11/2014 07/11/2013 Fall Risk Assessment 11/26/2024 11/27/2023 Influenza Vaccine (Season Ended) 2025 02/03/2020, 02/05/2019, 03/08/2018, Additional history exists DTaP/Tdap/Td Vaccine (2 - Td or Tdap) 09/06/2025 09/07/2015 Medical Devices Implanted Type Area [employer] Device Identifier Shelf Expiration Date Model / Serial / Lot [employer] Percutaneous Transcatheter Amplatzer Amulet 25mm [id number] - [id number] Implanted:Qty: 1 on 11/26/2023 by Frederick Galvez MD at [facility] Left Atrial Appendage Occluder Left: Atrial Appendage [employer] 11/08/2027 [id number] / / [id number] [employer] System Closure Repair Femoral Artery Suture Mediated Perclose Prostyle 78263-90 - [id number] Implanted:Qty: 1 on 11/26/2023 by Frederick Galvez MD at [facility] [employer] 09/07/2025 [id number] / / [id number] [employer] System Closure Repair Femoral Artery Suture Mediated Perclose Prostyle 82462-83 - [id number] Implanted:Qty: 1 on 11/26/2023 by Frederick Galvez MD at [facility] [employer] 09/07/2025 [id number] / / [id number] Procedures Procedure Name Priority Date/Time Associated Diagnosis [...] from Last 3 Months Insurance MEDICARE MEDICARE [facility] [employer]ANCE JOSE LUIS Bustos [id number] MEDICARE [employer] INS[employer] JOSE LUIS Bustos [id number] Care Teams Manufacturing Planner Relationship Specialty Start Date End Date Mario Osuna MD PCP - General 5/19/14
--- OUTSIDE RECORDS SUMMARY | 2024-08-18 09:06 | XMS_ITS | Data Portability ---
Author Organization [facility], [address] [place] [address] [place]rology ([place]) Address [address] [place] [address] Care Team Providers Care Mixed Crop And Livestock Farmer Name Role Phone SIENA MEADE Primary Care Provider ANGELICA LOGAN Copier And Printer Field Technician [phone] Assessment Encounter Date Assessment Date Assessment LastModified [...] scan recently performed by Dr. Vela from [facility] for my review. 3. Labs today including [...] results of the laboratory testing are available. apt [email or web address] Not available 03/08/2024 11:03:06 04/06/2024 04/06/2024 IMPRESSION: 1. Limited scleroderma. 2. Fibromyalgia syndrome. 3. Interstitial lung disease, currently following with Dr. Vela of pulmonary medicine. 4. Chronic kidney disease stage 4, currently following with Dr. Logan of nephrology. PLAN: 1. Encouraged patient to [...] Patient 15.EST 2024 10:00A M Dr. Angelica Logan Not available Not available Not available Dilan martinez Patient 15.EST 2024 10:00A M Dr. Alek Cardona Not available Not available Not available Lab CBC 2023 [facility] - [facility], [address] [place] [address], [id number], 03/07/2024 16:06:56 CMP, serum or plasma 2023 [facility] - [facility], [address] [place] [address], [id number], 03/07/2024 17:03:54 ESR (erythr ocyte sedimen tation rate), blood 2023 [facility] - [facility], [address] [place] [address], [id number], 03/07/2024 17:21:40 C-react reinaldo protein , quantit ative, serum or plasma 2023 [facility] - [facility], [address] [place] [address], [id number], 03/07/2024 17:03:52 Referral None recorde d. Procedures None recorde d. Surgeries None recorde d. Imaging None recorde d. Medication Orders None recorde d. Patient TargetsNo targets recorded. Patient InstructionsNo instructions recorded. Reason for Referral None Reported. Results Created Date Observation Date Name Description Value Unit Range Abnormal Flag Note LastModifiedBy Organization Detail LastModifiedTime 03/07/2003/07/2024 CBC CBC Not Available [facility] - [facility] [address] [place] [address], [id number], 03/07/2024 16:06:56 03/07/2003/07/2024 CBC WBC 7.8 K/uL 3.8-11 .2 Not Available [facility] [address] [place] [address], 58151, 03/07/2024 16:06:56 03/07/20 24 03/07/2024 CBC RBC 2.22 M/uL 3.92-5 .10 low Not Available [facility] - [facility] [address] [place] [address], 59544, 03/07/2024 16:06:56 03/07/2003/07/2024 CBC HGB 7.3 g/dL 11.8-1 5.3 low Not Available [facility] - [facility] [address] [place] [address], 5[address], 03/07/2024 16:06:56 03/07/2003/07/2024 CBC HCT 23.7 % 36.5-4 4.8 low Not Available [facility] [address] [place] [address], 79269, 03/07/2024 16:06:56 03/07/2003/07/2024 CBC MCV 106.8 fL 80.0-9 9.0 high Not Available [facility] [address] [place] [address], 728[address], 03/07/2024 16:06:56 03/07/2003/07/2024 CBC MCH 32.9 pg 25.5-3 3.6 Not Available [facility] - [facility] [address] [place] [address], 5[address], 03/07/2024 16:06:56 03/07/2003/07/2024 CBC MCHC 30.8 g/dL 32.0-3 6.0 low Not Available [facility] - [facility] [address] [place] [address], 75360, 03/07/2024 16:06:56 03/07/2003/07/2024 CBC RDW-SD 57.6 fL 35.1 - 46.3 high Not Available [facility] - [facility] [address] [place] [address], 02607, 03/07/2024 16:06:56 03/07/2003/07/2024 CBC plt 298 K/uL 130-40 0 Not Available [facility] - [facility] [address] [place] [address], 52170, 03/07/2024 16:06:56 03/07/20 24 03/07/2024 CBC MPV 9.9 fL 9.3-12 .8 Not Available [facility] - [facility] [address] [place] [address], 45634, 03/07/2024 16:06:56 03/07/20 24 03/07/2024 CK (crea christine kinas e), total , serum CPK- Not Available [facility] - [facility] [address] [place] [address], 86781, 03/07/2024 16:50:15 03/07/20 24 03/07/2024 CK (crea christine kinas e), total , serum CPK 45 U/L 30-200 Not Available [facility] - [facility] [address] [place] [address], 20012, 03/07/2024 16:50:15 03/07/20 24 03/07/2024 C-amanda ctive prote in, quant itati ve, serum or plasm a CRP high Not Available [facility] - [facility] [address] [place] [address], 17959, 03/07/2024 17:03:52 03/07/20 24 03/07/2024 C-amanda ctive prote in, quant itati ve, serum or plasm a CRP 0.6 mg/dL <0.4-0 .5 high Not Available [facility] - [facility] [address] [place] [address], 39904, 03/07/2024 17:03:52 03/07/2003/07/2024 CMP, serum or plasm a comp. met. panel Not Available [facility] [address] [place] [address], 56999, 03/07/2024 17:03:54 03/07/20 24 03/07/2024 CMP, serum or plasm a sodium 138 mmol/ L 136-14 6 Not Available [facility] - [facility] [address] [place] [address], 47798, 03/07/2024 17:03:54 03/07/2003/07/2024 CMP, serum or plasm a potassium 4.0 mmol/ L 3.5-5. 1 Not Available [facility] - [facility] [address] [place] [address], 18496, 03/07/2024 17:03:54 03/07/2003/07/2024 CMP, serum or plasm a chloride 106 mmol/ L 98-110 Not Available [facility] - [facility] [address] [place] [address], 04093, 03/07/2024 17:03:54 03/07/2003/07/2024 CMP, serum or plasm a CO2 24 mEq/L 20-32 Not Available [facility] - [facility] [address] [place] [address], 75375, 03/07/2024 17:03:54 03/07/2003/07/2024 CMP, serum or plasm a anion gap 12 mmol/ L 10-22 Not Available [facility] [address] [place] [address], 96793, 03/07/2024 17:03:54 03/07/2003/07/2024 CMP, serum or plasm a glucose 98 mg/dL 70-100 Not Available [facility] [address] [place] [address], 39056, 03/07/2024 17:03:54 03/07/2003/07/2024 CMP, serum or plasm a calcium 9.2 mg/dL 8.4-10 .4 Not Available [facility] [address] [place] [address], 19025, 03/07/2024 17:03:54 03/07/2003/07/2024 CMP, serum or plasm a total protein 6.9 g/dL 6.4-8. 3 Not Available [facility] - [facility] [address] [place] [address], 63854, 03/07/2024 17:03:54 03/07/2003/07/2024 CMP, serum or plasm a albumin 3.7 g/dL 3.5-5. 3 Not Available [facility] - [facility] [address] [place] [address], 17951, 03/07/2024 17:03:54 03/07/2003/07/2024 CMP, serum or plasm a ALP 101 U/L 44 - 127 Not Available [facility] - [facility] [address] [place] [address], 90412, 03/07/2024 17:03:54 03/07/2003/07/2024 CMP, serum or plasm a AST (SGOT) 28 U/L 10-40 Not Available [facility] [address] [place] [address], 70368, 03/07/2024 17:03:54 03/07/2003/07/2024 CMP, serum or plasm a total bilirubin 0.2 mg/dL 0.2-1. 0 Not Available [facility] [address] [place] [address], 24556, 03/07/2024 17:03:54 03/07/2003/07/2024 CMP, serum or plasm a ALT (SGPT) 19 U/L 8-35 Not Available [facility] [address] [place] [address], 35535, 03/07/2024 17:03:54 03/07/2003/07/2024 CMP, serum or plasm a BUN 23 mg/dL 7-21 high Not Available [facility] [address] [place] [address], 11305, 03/07/2024 17:03:54 03/07/20 24 03/07/2024 CMP, serum or plasm a creatinine 1.8 mg/dL 0.7-1. 3 high Not Available [facility] - [facility] [address] [place] [address], 42457, 03/07/2024 17:03:54 03/07/2003/07/2024 CMP, serum or plasm a GFR(non-afri can croatian) 29 Not Available [facility] [address] [place] [address], 73782, 03/07/2024 17:03:54 03/07/2003/07/2024 CMP, serum or plasm a GFR() 35 (MARKETING ASSISTANT MANAGER ANABELLA KIDNE Y DISEA SE HAS A GFR LESS THAN 60 ML/NH N/1.7 3 MM FOR A PERIO D OF THREE MONTH S OR MORE. ) Not Available [facility] - [facility] [address] [place] [address], 80536, 03/07/2024 17:03:54 03/07/20 24 03/07/2024 ESR (eryt hrocy te sedim entat ion rate) , blood sed rate 27 mm/HR 0 - 30 Not Available [facility] - [facility] [address] [place] [address], 14751, 03/07/2024 17:21:40 03/07/2003/07/2024 hepat itis C Ab, serum hepatitis C Ab NONREA CTIVE nonrea ctive Not Available [facility] - [facility] [address] [place] [address], 74521, 03/07/2024 17:27:53 03/07/2003/08/2024 Hepat itis B virus core Ab, qual immun oassa y, serum or plasm a hepatitis B core Ab NEGATI VE negati ve Not Available [facility] - [facility] [address] [place] [address], 31486, 03/08/2024 07:40:50 03/07/2003/08/2024 hepat itis B surfa ce Ab, quant itati ve, serum hep bsab quant <3.5 mIU/m L immuni ty>10 low Statu s of Immun ity Anti- HBs Level ----- ----- ----- --- ----- ----- ---- Incon siste nt with Immun ity 0.0 - 10.0 Consi stent with Immun ity >10.0 Not Available [facility] - [facility] [address] [place] [address], 73829, 03/08/2024 07:40:52 03/07/2003/08/2024 SCL-7 0 extra ctabl e nucle ar Ab, QL, IA, serum scl-70 3.4 ai 0.0-0. 9 high Not Available [facility] - [facility] [address] [place] [address], 94047, 03/08/2024 12:39:31 03/07/2003/08/2024 nubia-1 Ab, serum nubia-1 <0.2 ai 0.0-0. 9 Not Available [facility] - [facility] [address] [place] [address], 91817, 03/08/2024 12:39:33 03/07/2003/08/2024 centr omere Ab, titer , IFA, serum centromere antibody >8.0 ai 0.0-0. 9 high Not Available [facility] - [facility] [address] [place] [address], 98575, 03/08/2024 12:39:35 03/07/2003/08/2024 C3 (comp lemen t), serum or plasm a complement C3 142 mg/dL 82-167 Not Available [facility] [address] [place] [address], 61834, 03/08/2024 12:39:36 03/07/2003/08/2024 C4 (comp lemen t), serum or plasm a complement C4 22 mg/dL 12-38 Not Available [facility] [address] [place] [address], 73837, 03/08/2024 12:39:37 03/07/2003/08/2024 sjogr en antib nicol panel (ssa, ssb, ro, la), serum sjogren's Ab (ssa Not Available [facility] - [facility] [address] [place] [address], 47900, 03/08/2024 12:39:38 03/07/2003/08/2024 sjogr en antib nicol panel (ssa, ssb, ro, la), serum *ssa result <0.2 ai 0.0-0. 9 Not Available [facility] - [facility] [address] [place] [address], 83390, 03/08/2024 12:39:38 03/07/2003/08/2024 sjogr en antib nicol panel (ssa, ssb, ro, la), serum *ssb result <0.2 ai 0.0-0. 9 Not Available [facility] - [facility] [address] [place] [address], 44933, 03/08/2024 12:39:38 03/07/2003/09/2024 TB (M tuber culos is), IFN-g skinny+ mitog en-ga mma, blood quant TB gold Not Available [facility] - [facility] [address] [place] [address], 72262, 03/09/2024 14:12:22 03/07/20 24 03/09/2024 TB (M tuber culos is), IFN-g skinny+ mitog en-ga mma, blood TB gold 0.00 IU/mL <=0.34 Not Available [facility] - [facility] [address] [place] [address], 43266, 03/09/2024 14:12:22 03/07/2003/09/2024 TB (M tuber culos is), IFN-g skinny+ mitog en-ga mma, blood TB gold 2 0.00 IU/mL <=0.34 Not Available [facility] - [facility] [address] [place] [address], 85611, 03/09/2024 14:12:22 03/07/20 24 03/09/2024 TB (M [...] and diagn ostic findi ngs. Not Available [facility] - [facility] [address] [place] [address], 07241, 03/09/2024 14:12:22 03/07/20 24 03/10/2024 CRISTINA (anti nucle ar antib odies ) scree n, serum CRISTINA screen POSITI VE negati ve abnormal Titer to follo w Perfo rmed by Bio-R ad enzym e immun oassa y Not Available [facility] - [facility] [address] [place] [address], 52160, 03/10/2024 15:05:41 03/07/2003/10/2024 CRISTINA (anti nucle ar [...] nicol using HEp-2 cell line Not Available [facility] - [facility] [address] [place] [address], 06338, 03/10/2024 18:00:19 03/07/20 24 03/18/2024 RNA polym erase III Ab, IgG, QN, IA, serum or plasm a RNA polymerase III Ab <20 units <20 Negat reinaldo: <20 Weak Posit reinaldo: 20 - 39 Moder ate Posit reinaldo: 40 - 80 Stron g Posit reinaldo: >80 Not Available [facility] [address] [place] [address], 14748, 03/18/2024 21:41:11 Result Notes None recorded. Problems Name Problem SNOMED Code Status Onset Date Resolution Date Notes Provider Name and Address Organization Details Recorded Time Scleroderma Active 2023 Alek Cardona MD [address] [place] [address], [phone] , [facility] 4 11:32:29 Interstitial lung disease 963246595 Active 2023 Alek Cardona MD [address] [place] [address], [address] , [facility] 4 11:32:44 Fibromyalgia 342010637 Active 2023 Alek Cardona MD [address] [place] [address], [address] , [facility] 4 11:32:52 Mucous membrane dryness 483889929 Active 2023 Alek Cardona MD [address] [place] [address], [address] , [facility] 4 11:32:58 Degenerative joint disease involving multiple joints 388930664 Active 2023 Alek Cardona MD [address] [place] [address], [address] , [facility] 4 11:57:47 Benign essential hypertension 8977797 [facility] 11:15:07 Chronic kidney disease stage 4 863333379 Active [facility]23 [facility] 4 11:15:20 Microalbuminu chase 964491672 [facility] 4 11:15:30 Hyperkalemia 92608818 Active [facility] 4 11:15:37 Hypercalcemia 91992785 [facility] 4 11:15:46 Edema 704269358 Active 20[facility] 4 11:16:05 Problem Notes None recorded. [...] Updated DateTime 4 167.64 cm 19.1 kg/m2 24393.3 4 g 56 /min 97 % 97 % 118 mm[Hg] 62 mm[Hg] Reema Luque [facility] 4 15:54:56 Date Recorded Body height Body mass index (BMI) Body weight Heart rate Systolic blood pressure Diastolic blood pressure Provider Name and Address Organization Details Last Updated DateTime 4 167.64 cm 20.7 kg/m2 21074.8 2 g 64 /min 132 mm[Hg] 68 mm[Hg] Dior Veronica [facility] 4 12:34:26 Date Recorded Body height Body mass index (BMI) Body weight Heart rate Systolic blood pressure Diastolic blood pressure Provider Name and Address Organization Details Last Updated DateTime 4 167.64 cm 21 kg/m2 45349.7 3 g 64 /min 126 mm[Hg] 60 mm[Hg] Douglas Semaj [facility] 4 10:50:01 Date Recorded Body height Heart rate Oxygen saturation Oxygen saturation in Arterial blood by Pulse oximetry Pain severity - 0-10 verbal numeric rating [Score] - Reported Systolic blood pressure Diastolic blood pressure Provider Name and Address Organization Details Last Updated DateTime 4 167.64 cm 60 /min 98 % 98 % 0 132 mm[Hg] 60 mm[Hg] Chandni Pope [facility] 4 11:15:44 Date Recorded Body height Body mass index (BMI) Body weight Heart rate Systolic blood pressure Diastolic blood pressure Provider Name and Address Organization Details Last Updated DateTime 5 167.64 cm 20.5 kg/m2 46100.2 3 g 85 /min 124 mm[Hg] 62 mm[Hg] Gee Ty [facility] 5 11:10:51 Social History Question Answer Notes LastModified by Organizat ion Details LastModified Time Tobacco Smoking Status [facility]2024 11:16:15 What Is Your Level Of Alcohol Consumption? None [email or web address] Information not available 05/16/2024 Do You Use Any Illicit Or Recreational Drugs? No [email or web address] Information not available 05/16/2024 Sex: Unknown Functional [...] virus, quadrivalent, preservative [address] [facility] 05/16/2024 14:16:32 Influenza, high-dose, quadrivalent, PF [address] [facility] 05/16/2024 14:16:32 Influenza, high-dose, quadrivalent, PF [address] [facility] 05/16/2024 14:16:32 pneumococcal polysaccharide PPV23 [address] [facility] 05/16/2024 14:16:32 Tdap [address] [facility] 05/16/2024 14:16:32 Influenza, high-dose, trivalent, PF [address] [facility] 05/16/2024 14:16:32 Influenza, high-dose, trivalent, PF [address] [facility] 05/16/2024 14:16:32 Influenza, high-dose, trivalent, PF [address] [facility] 05/16/2024 14:16:32 Influenza, high-dose, trivalent, PF [address] [facility] 05/16/2024 14:16:32 Influenza, split virus, trivalent, preservative [address] [facility] 05/16/2024 14:16:32 influenza, seasonal, intradermal, preservative free 2 completed Reema Luque jorge, [facility] 05/16/2024 14:16:32 Influenza, split virus, quadrivalent, PF 0 completed Reema Luque jorge, [facility] 05/16/2024 14:16:32 Past Encounters Encounter ID Performer Location Encounter Start Date Encounter Closed Date Diagnosis/Indication Diagnosis SNOMED-CT Code Diagnosis ICD10 Code Diagnosis Note [id number] Angelica Logan MD [facility] ([place]) [address] [place] [address] 09/17/2023 15:20:34 09/17/2023 16:12:06 Benign essential hypertension 2269382 I10 Chronic ki dney disease stage 4 321220630 N18.4 Hyperkalemia 28834141 E8 7.5 Microalbuminuria 4554845 06 R80.9 Hypercalcemia 57145732 E 83.52 Edema 773055473 R60.9 [id number] Angelica Logan MD [facility] ([place]) [address] [place] [address] 01/14/2024 11:33:16 01/14/2024 12:49:10 Chronic kidney disease stage 4 034394514 N18.4 Benign ess ential hypertension 3888868 I10 Edema 996227074 R60.9 Hypercalcemia 77473459 E 83.52 Hyperkalemia 51637662 E8 7.5 Microalbuminuria 5460145 06 R80.9 [id number] Alek Cardona MD [address] [facility] ([place]) [address] [address] 03/07/2024 10:26:01 03/07/2024 18:38:56 Scleroderma 822669114 M34.9 Interstiti al lung disease 147116021 J84.9 Fibromyalgia 402470113 M 79.7 Mucous mem brane dryness 110076730 M35.00 [id number] Sue Jorge Luisoboda [address] [facility] ([place]) [address] [facility] [address] 04/06/2024 10:51:16 04/13/2024 18:06:30 Scleroderma 136616382 M34.9 Interstiti al lung disease 989565382 J84.9 Fibromyalgia 711720252 M 79.7 Degenerati ve joint disease involving multiple joints 368439408 M15.9 Chronic ki dney disease stage 4 198435209 N18.4 [id number] Chitra Maxwell PA-C [facility] ([place]) [address] [place] [address] 05/26/2024 10:17:15 05/26/2024 11:32:21 Chronic kidney disease stage 4 972354816 N18.4 Benign ess ential hypertension 0579411 I10 Edema 167609252 R60.9 Hypercalcemia 86924584 E 83.52 Hyperkalemia 57722834 E8 7.5 Microalbuminuria 2509056 06 R80.9 Health Concerns Section Related Observation LastModified by Organization Detai ls LastModified Time None Recorded Concern Status LastModified by Organization Details LastModified Time None Recorded Advance Directives Directive None Recorded Payers Encounter Date Sequence Insurance Name Policy Number Policy Rosario Covered Member ID Rosario Member ID Guarantor Name 09/17/2023 1 [place] Susan Araiza [id number] Susan Araiza 01/14/2024 1 [place] Araiza [id number] Susan Araiza 03/07/2024 1 [place] Susan Araiza [id number] Susan Araiza 04/06/2024 1 [place] Susan Araiza [id number] Susan Araiza 04/06/2024 1 [email or web address] (MEDICARE SUPPLEMENT) Susan Araiza [id number] Susan Araiza 05/26/2024 1 [place] Susan Araiza [id number] Susan Araiza Notes Date Note Type [...] No signs of lower extremity edema. Angelica Logan MD [address] [place] [address], [address], [facility] 09/17/2023 16:13:02 01/14/2024 text/html Ms. Paige is [...] medications as well as low-sodium diet Angelica Logan MD [address] [place] [address], [address], [facility] 01/14/2024 12:49:33 03/07/2024 text/html A 73-year-old fe [...] GI bleed and was seen by her lamination operator/oncologi stDr. Puentes at [facility]. At one point, it was thought she [...] follow with Dr. Vela of pulmonology at [facility]. She is not currently on any active [...] dysuria or gross hematuria. Alek Cardona MD [facility], [address], [facility] 03/08/2024 16:11:39 04/06/2024 text/html The patient is a 73-year-old female with a history of limited scleroderma and fibromyalgia syndrome, as well as interstitial lung disease, who is here today for a followup visit. The patient currently reports generally feeling well as long as she receives her iron infusions. She has been seeing Dr. Betts of hematology/oncology at [facility] regarding iron deficiency anemia. She does see Dr. Vela regarding her interstitial lung disease also at [facility] for pulmonary care. Her 6 minute walk [...] has remained very stable. She sees Dr. Logan of nephrology.yadi patel, [facility] 04/27/2024 16:57:11 05/26/2024 text/html Ms. Araiza [...] on 05/19/2024 Chitra Maxwell PA-C [address] [facility], [place], [address], [place] [facility] 05/26/2024 14:59:52 OBGyn Episode No OBEpisode recorded.
--- OUTSIDE RECORDS SUMMARY | 2024-08-18 09:06 | XMS_ITS | Referral Summary ---
Author Organization [facility] [address] [facility] [address] Address [address] [place] [address] Care Team Providers Care Nitrocellulose Operator Name Role Phone Mario Osuna MD Primary Care Provider [phone] Encounters Date Type Department Care Team Description 07/27/2024 Telephone [facility] Cardiac Catheterization Lab [address] [place] [address] Frederick Galvez MD 07/27/2024 10:30 AM CDT Office Visit [facility] [address] [place] [address] Frederick Galvez MD Chronic diastolic [...] 4 secondary to hypertension 02/07/2020 Autoimmune disease ([facility]) 05/31/2019 Non-rheumatic mitral regurgitation 11/26/2015 Overview [...] on file Legal Sex 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 Gender Identity Not on file Sexual Orientation [...] on file Medical Devices Implanted Type Area Pumper Gauger Device Identifier Shelf Expiration Date Model / Serial / Lot [employer] Percutaneous Transcatheter Amplatzer Amulet 25mm [id number] - [id number] Implanted:Qty: 1 on 11/26/2023 by Frederick Galvez MD at [facility] Left Atrial Appendage Occluder Left: Atrial Appendage [employer] 11/08/2027 [id number] / / [id number] [employer] System Closure Repair Femoral Artery Suture Mediated Perclose Prostyle 06762-55 - [id number] Implanted:Qty: 1 on 11/26/2023 by Frederick Galvez MD at [facility] [employer] 09/07/2025 [id number] / / [id number] [employer] System Closure Repair Femoral Artery Suture Mediated Perclose Prostyle 06389-18 - [id number] Implanted:Qty: 1 on 11/26/2023 by Frederick Galvez MD at [facility] [employer] 09/07/2025 [id number] / / [id number] Procedures Procedure Name Priority Date/Time Associated Diagnosis [...] from Last 3 Months Insurance MEDICARE MEDICARE [employer] MEDICARE [place] JOSE LUIS [place] [id number] Care Teams Nitrocellulose Operator Relationship Specialty Start Date End Date Mario Osuna MD PCP - General 09/26/13
--- OUTSIDE RECORDS SUMMARY | 2024-08-18 09:06 | XMS_ITS | Clinical Summary ---
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
--- OUTSIDE RECORDS SUMMARY | 2024-08-18 09:07 | XMS_ITS | Clinical Summary ---
Author Organization [facility] Address [address] [place] [address] Care Team Providers Care Bright Cutter Name Role Phone Mario Osuna MD Primary Care Provider [phone] Allergies Active Allergy Reactions Criticality Noted Date [...] Essential hypertension 02/09/2012 Overview (03/15/2021): BENIGN HYPERTENSION Social History Tobacco Use Types Packs/Day Years Used Date Smoking Tobacco: Never Smokeless Tobacco: Never Alcohol Use Standard Drinks/Week Comments Not Currently 0 (1 standard drink = 0.6 oz pur e alcohol) Comments No Sex and Gender Information Value Date Recorded Sex Assigned at Not on file Legal Sex Female 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 Gender Identity Not on file Sexual Orientation Not on file Last Filed Vital Signs Vital Sign Reading Time Taken Comments Blood Pressure 131/53 07/03/2022 5:30 PM 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 Pulse 70 07/03/2022 5:30 PM 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 Temperature 36.4 C (97.6 F) 07/03/2022 5:30 PM 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 Respiratory Rate 19 07/03/2022 5:30 PM 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 Oxygen Saturation 100% 07/03/2022 5:30 PM 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 Inhaled Oxygen Concentration - - Weight 59 kg (130 lb 2 oz) 07/03/2022 10:[address] Height 167.6 cm (5' 6 ) 07/03/2022 10:56 AM 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 Body Mass Index 21 07/03/2022 10:56 AM 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 Plan of Treatment Health Maintenance Due Date Last Done Comments COVID-19 Vaccine (#1) 1955 Pneumococcal Vaccine: 65+ Ye ars (1 of 2 - PCV) 1954 Hepatitis C 1966 DTaP, Tdap and Td Vaccines ( 1 - Tdap) 07/29/1967 Zoster Vaccines (1 of 2) 07/29/1967 Annual Medicare Wellness Visit 2013 Dexa Scan (General) 2013 RSV Immunization or 60+ Years (1 - 1-dose 75+ series) 07/29/2023 Colorectal Cancer Screening FIT/FOBT (1 Year) Discontinued [...] Procedure Name Priority Date/Time Associated Diagnosis Comments OCCULT BLOOD, FECES STAT 07/03/2022 1 1:21 AM 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 from Last 3 Months or Most Recently Relevant to Health Maintenance Results * OCCULT BLOOD, FECES (07/03/2022 11:21 AM 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) OCCULT BLOOD FECAL NEGATIVE NEGATIVE 07/03/2022 11:33 AM 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 [facility] STOOL SPECIMEN / Unknown 07/03/2022 11:21 AM 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 us Kiara De La Rosa MD BODY FLUIDS AND STOOLS OR DERABLES Final Result [facility] [address] [place] [id number], from Last 3 Months or Most Recently Relevant to Health Maintenance Insurance MEDICARE [facility] [place] [place] [id number] Advance Directives * Full Code (Latest Code Status on File) Date Activated Date Inactivated Comments 03/15/2021 5:41 PM 03/16/2021 4:05 PM Care Teams Bright Cutter Relationship Specialty Start Date End Date Mario Osuna MD [address] [place] [address] PCP - General INTERNAL MEDICINE 01/06/20
--- OUTSIDE RECORDS SUMMARY | 2024-08-18 09:07 | XMS_ITS ---
Care Plan - [facility] Created on: August 18, 2024 ALIREZA ZURITA : 1950 Sex: Female Author Organization [facility] Address [address] [place] [address] Phone Care Team Providers Care Ham Smoker Name Role Phone Unavailable Unavailable Unavailable
--- OUTSIDE RECORDS SUMMARY | 2024-08-18 09:07 | XMS_ITS ---
Author Organization [facility] Address [address] [place] [address] Phone Care Team Providers Care Sludge Control Operator Name Role Phone Unavailable Unavailable Unavailable Plan of Treatment No Plan of Treatment Recorded Assessments Includes: Assessments for all patient encounters No Assessments Recorded Medical Equipment - Implanted Devices Includes: Current and historical Devices No Medical Equipment Recorded Medications Administered Includes: Administered Medications in patient's chart No Administered Medications Recorded Results Includes: Results from 08/19/2023 through 08/18/2024 No Results Recorded For Specified Dates History [...]
--- NOTE | 2024-08-18 12:17 | WPDSIXMINUTE ---
Six Minute Walk Procedure Procedure Performed Pulmonary Stress Test (6 min walk) Six Minute Walk Six Minute Walk: This is a 6 minute walk test. The test was performed and interpreted in accordance with the 2014 ERS/ATS task force guidelines. Findings: The patient's resting room air oxygen saturation measured by pulse oximetry was 96%, the heart rate was 81 bpm, and the modified Agustín dyspnea score was 0. Patient ambulated for 213 meters and oxygen saturation remained 94 to 96%. At the end of the study the heart rate was 86 bpm and the modified Agustín dyspnea score was 2. The patient did not qualify for supplemental oxygen at rest or with ambulation. Compared to 6 minute walk on 03/09/2024 the distance walked has increased from 183 m to 213 m. Kingsley saturation is unchanged from 93% to 94%.
--- NOTE | 2024-08-18 12:19 | P.PCNPFT_ITS ---
PFT Procedure Performed PFT Procedure Performed Spirometry with Pre/Post Bronchodilator Plethysmography (Lung Vol) Diffusing Cap (DLCO) Flow Vol Loop PFT Interpretation This is a pulmonary function test with pre and post-bronchodilator spirometry, plethysmography and diffusing capacity. The test was performed and results interpreted in accordance with the 2019 and 2005 ATS/ERS Task Force guidelines respectively using the Global Lung Function Initiative-2012 reference equations. Patient demonstrated good effort and cooperation. Reproducibility criteria were met. The quality of the pre bronchodilator spirometry maneuver was Grade A and post bronchodilator spirometry maneuver was Grade A. Findings: Spirometry: The contour the inspiratory and expiratory flow tracing are normal. The pre bronchodilator FVC is 2.01 L, 75% predicted. The pre bronchodilator FEV1 is 1.58 L, 77% predicted. The pre bronchodilator FEV1: FVC ratio 78%. The post bronchodilator FVC is 1.84 L, representing a 9% decrease. The post bronchodilator FEV1 is 1.53 L, representing a 3% decrease. The post bronchodilator FEV1: FVC ratio is 83%. Plethysmography: The total lung capacity is 3.66 L, 72% predicted. The functional residual capacity is 2.64 L, 90% predicted. The residual volume is 1.65 L, 71% predicted. Diffusing capacity: The diffusing capacity unadjusted for hemoglobin and carboxyhemoglobin is 5.7, 29% predicted. The diffusing capacity adjusted for alveolar volume is 2.04, 49% predicted. In comparison to previous pulmonary function testing on 02/18/2024 the post bronchodilator FVC is decreased from 2.16 L to 1.84 L. The post bronchodilator FEV1 is unchanged from 1.69 L to 1.53 L. The total lung capacity is unchanged from 3.77 L to 3.66 L. The functional residual capacity is unchanged from 2.44 L to 2.64 L. The residual volume is unchanged from 1.53 L to 1.65 L. The diffusing capacity unadjusted for hemoglobin and carboxyhemoglobin is unchanged from 5.4 to 5.7. The diffusing capacity adjusted for alveolar volume is unchanged from 2.09 to 2.04. Impression: There is a mild restrictive ventilatory abnormality with a normal FEV1. The spirometry is normal without evidence of an obstructive abnormality. There is no significant improvement after inhaling a single dose of albuterol. The diffusing capacity unadjusted for hemoglobin and carboxyhemoglobin is severely decreased and remains moderately decreased when adjusted for alveolar volume. In comparison to previous pulmonary function testing on 02/18/2024 there has been a greater than anticipated time dependent decrease in the FVC with no significant change in the FEV1, total lung capacity, functional residual [place], residual volume or diffusing capacity. Clinical correlation is recommended.
== END 2024-08-18 08:53 | disposition home or self-care (01) ==
PROVIDERS: PCP Internal Medicine; Visit Provider Internal Medicine Pulmonary Disease
DX: J84.9 Interstitial pulmonary disease, unspecified (principal)
CPT/HCPCS: 71250; 94060; 94618; 94726; 94729

== ENCOUNTER 2024-11-01 14:50 | Outpatient (CLI) | payer MEDICARE, SELFPAY ==
[2024-11-01 15:05] LABS: Hemoglobin 10.4 g/dL (11.7-13.8); Mean Corpuscular HGB Conc 30.6 g/dL (32-36); Mean Corpuscular Volume 101.2 fL (78.0-102.0); Mean Platelet Volume 9.5 fl (9.2-11.8); Platelet Count Result 184 K/mm3 (150-420); Red Blood Count 3.36 M/mm3 (4.20-5.40); Red Cell Distribution Width 14.6 % (11.6-14.4); White Blood Count 6.7 K/mm3 (4.8-10.8)
[2024-11-01 16:05] LABS: Anion Gap 6 mmol/L (4-12); Blood Urea Nitrogen 25 mg/dL (7-17); Calcium 9.3 mg/dL (8.4-10.2); Carbon Dioxide 26 mmol/L (22-30); Chloride 107 mmol/L (98-107); Estimated Glomerular Filt Rate 23; Glucose 107 mg/dL (65-110); Iron 62 ug/dL (37-170); Osmolality Calculated 292 mOsm/kg (285-295); Potassium 4.2 mmol/L (3.4-5.0); Sodium 139 mmol/L (137-145)
[2024-11-01 16:56] LABS: Percent Iron Saturation 24 % (20-50)
[2024-11-01 17:13] LABS: Folic Acid > 20.0 ng/mL (2.76->20)
== END 2024-11-01 14:51 | disposition home or self-care (01) ==
PROVIDERS: PCP Internal Medicine; Visit Provider Internal Medicine Hematology & Oncology
DX: D64.9 Anemia, unspecified (principal)
CPT/HCPCS: 36415; 80048; 82607; 82728; 82746; 83540; 83550; 85027

== ENCOUNTER 2024-12-19 13:54 | Outpatient (RCR) | payer MEDICARE, SELFPAY ==
--- NOTE | 2024-12-19 15:09 | OPREHPOC ---
Outpatient Therapy Plan of Care This is a Multidisciplinary Plan of Care that may contain components documented by all disciplines (PT, OT, and ST.) PT Problem 1 PT Problem #1 Knowledge Deficit PT Goal 1 Goal / Goal Update Independent and compliant with HEP. Target Visit 2 PT Problem 2 PT Problem #2 Impaired Strength PT Goal 1 Goal / Goal Update Pt to improve bilat hip flexion strength to 4+/5. Pt to improve bilat knee flexion strength to 5/5. Pt to improve lower abdominal strength to 4-/5. Target Visit 12 PT Problem 3 PT Problem #3 Impaired Functional Mobility PT Goal 1 Goal / Goal Update Pt to report 20% reduction in perceived disability on Oswestry. Pt to report being able to stand for 5 minutes or more to put a load of laundry in the washing machine. Pt to be able to lift 5# from floor to waist without low back pain and good body mechanics. Target Visit 12
--- NOTE | 2024-12-19 15:09 | PTOPEVAL1 ---
Assessment and note entered by Radha Ayala, PT Evaluation Information Assessment Status Evaluation ICD-10 Condition Codes (PT) Pain in low back M54.50 Other ICD-10 Condition Codes ( M54.59 PT) Subjective Information Pt reports she's been having back pain for years and that it's been worse the last few days, and she has been taking Tylenol for pain relief. She reports her back pain also goes all the way down her legs. She saw Dr. Spaulding in [place] who did an x-ray of the back, pt presents with the x- ray report that shows grade 1 L5-S1 anterolisthesis and moderate lumbar DDD. She reports her pain is increased when bending forward to waste picker objects but she notes that standing is worse. She's unable to stand for more than a few minutes to do dishes or put a load of laundry in the washing machine. Reported Pain Level Pain Score 6: Self Report Assessment PT Clinical Summary Mrs. Araiza is a 74 yo female presenting to skilled PT evaluation with her daughter for low back pain and recent x-ray showing grade 1 L5-S1 anterolisthesis and moderate lumbar DDD. Pt demonstrates moderate strength deficits in hip and knee flexion as well as significant abdominal mm weakness. Her pain originates in the lower back and radiates down her legs, and is reproduced with slump testing on the R as well as with excessive hip flexion with knee extension in the 90/90 test. Pain is also produced with standing for more than a few minutes at a time and prevents pt from standing long enough to do dishes or put a load of laundry in the washing machine. She will benefit from skilled PT intervention to reduce pain and improve strength to be able to perform daily functional activities with less pain and difficulty. Plan of Care Interventions Gait Training,Hot Pack/Cold Pack,Manual Therapy, Neuro Re-education,Patient/Caregiver Education, Therapeutic Activities,Therapeutic Exercise,Self- Care/Home Management PT Services Indicated Yes Treatment Frequency and 2x/week for 12 visits Duration These treatments will address the objective and functional deficits as defined above. The patient will be advanced safely and appropriately in order for the patient to progress towards his/her prior level of function. Additional exercises will be introduced and as well as a comprehensive home exercise program upon discharge, if needed, ?to ensure carryover of functional gains achieved in the clinic. This treatment plan has been reviewed and agreement upon by the patient.
== END 2025-03-19 23:59 | disposition home or self-care (01) ==
LOC: CHSPT 13:54
PROVIDERS: Visit Provider Internal Medicine Rheumatology
DX: M54.59 Other low back pain (principal)
CPT/HCPCS: 97110; 97112; 97150; 97161; 97530